=== PATIENT | female | born 1945 | race Caucasian/White ===

== ENCOUNTER 2017-01-27 05:50 | Inpatient (IN) | payer MEDICARE, OTHER ==
[2017-01-27] MEDS ORDERED: Ondansetron 4 MG Tab.DIS PO PRN ×2 (06:39→12:30)
[2017-01-27] MEDS ORDERED: Alum Hydrox/Mag Hydrox/Simeth 15 ML, Lidocaine 2% 15 ML PO ONE ×2 (06:40)
--- NOTE | 2017-01-27 06:44 | EDM.PDOC ---
<OfficerRemy - Last Filed: 01/27/17 06:45> ED HPI GENERAL MEDICAL PROBLEM - General Chief Complaint: Gastrointestinal Problem Stated Complaint: WEAKNESS Time Seen by Provider: 01/27/17 06:31 Source of Information: Reports: Patient, Family, RN Notes Reviewed History Limitations: Reports: No Limitations - History of Present Illness INITIAL COMMENTS - FREE TEXT/NARRATIVE: 71-year-old female presents emergency department day complaint of epigastric pain, she states she's had this pain for the last 4 days it seems to be about the same as constant nature burning, she does feel it burning up into her test she has seen her primary care who provided her nausea and treated her for urinary tract infection she denies any shortness of breath or diaphoresis does have a family history with mother of coronary artery disease and stenting at age 68 Epigastric Pain Score (Numeric/FACES): 8 - Related Data Allergies Allergy/AdvReac Type Severity Reaction Status Date / Time benzocaine Allergy Itching Verified 07/16/15 16:15 tramadol Allergy Hives Verified 07/16/15 16:14 Home Meds: Home Meds Betamethasone Dipropionate [Diprolene AF 0.05% Crm] 50 gm TP BID 07/16/15 [ History] Doxepin HCl [Doxepin] 10 mg PO DAILY 07/16/15 [History] Fexofenadine HCl 180 mg PO DAILY 07/16/15 [History] Gabapentin [Gabapentin] 300 mg PO DAILY 07/16/15 [History] Hydrocodone/Acetaminophen [Hydrocodon-Acetaminophen 5-325] 1 tab PO Q6HR PRN [History] Levothyroxine Sodium 112 mcg PO DAILY 07/16/15 [History] Montelukast Sodium 10 mg PO DAILY 07/16/15 [History] metroNIDAZOLE [metroNIDAZOLE 0.75% Gel] 45 gm TOP BID 07/16/15 [History] Omeprazole 20 mg PO DAILY 01/27/17 [History] Promethazine [Phenergan] 25 mg PO Q4H PRN 01/27/17 [History] Sulfamethoxazole/Trimethoprim [Sulfamethoxazole-Tmp Ds Tablet] 1 tab PO BID [History] Past Medical History HEENT History: Reports: Impaired Vision Gastrointestinal History: Reports: GERD Genitourinary History: Reports: UTI, Recurrent [employer] History: Reports: Musculoskeletal History: Reports: Osteoarthritis Other Musculoskeletal History: multiple surgeries to right elbow. Right ulnar nerve transposition. Bunion removal to left foot. Neurological History: Reports: Other (See Below) Other Neuro History: "Nerve pain to right arm". Psychiatric History: Reports: Anxiety, Depression Endocrine/Metabolic History: Reports: Hypothyroidism Dermatologic History: Reports: Other (See Below) Other Dermatologic History: DERMATITIS - Infectious Disease History Infectious Disease History: Reports: Chicken Pox, Measles - Past Surgical History HEENT Surgical History: Reports: Tonsillectomy GI Surgical History: Reports: Appendectomy, Colonoscopy Musculoskeletal Surgical History: Reports: Arthroscopic Knee, Other (See Below) Other Musculoskeletal Surgeries/Procedures:: ELBOW ULNAR NERVE REPAIR Social & Family History - Family History Cardiac: Reports: CAD (mother) Oncologic: Reports: Breast, Lung - Tobacco Use Smoking Status *Q: Former Smoker - Caffeine Use Caffeine Use: Reports: Coffee - Recreational Drug Use Recreational Drug Use: No ED ROS GENERAL - Review of Systems Review Of Systems: See Below Constitutional: Reports: Chills HEENT: Reports: No Symptoms Respiratory: Reports: No Symptoms Cardiovascular: Reports: No Symptoms GI/Abdominal: Reports: Abdominal Pain (Epigastric region), Nausea. Denies: Vomiting : Reports: No Symptoms Musculoskeletal: Reports: No Symptoms Skin: Reports: No Symptoms Neurological: Reports: No Symptoms ED EXAM, GI/ABD - Physical Exam Exam: See Below Text/Narrative:: General: Female in mild discomfort secondary to pain, alert and oriented x3 HEENT: head is atraumatic normocephalic, eyes pupils equal round reactive to light, sclera clear no conjunctivitis appreciated. Ears tympanic membranes clear and szymanski landmarks and light reflex are present bilaterally canals are clear. Nose no septal deviation, nares are clear, no blood present. Mouth mucosa is moist and pink no erythema or exudate noted in soft palate, tongue is midline uvula is midline, dentition is intact. Neck: Supple no thyromegaly no tracheal deviation. Nodes: Cervical nodes subclavicular nodes nontender no palpable lymphadenopathy noted. Lungs: clear to auscultation bilaterally with symmetrical respirations, no adventitious noise appreciated. CV: Regular rate and rhythm S1 and S2 appreciated no murmurs rubs or gallops noted. Abdomen: Soft, tender epigastric region, no palpable masses or organomegaly appreciated, no distention no guarding bowel sounds are present, . Neuro: Cranial nerves II through XII grossly intact Skin: Warm and dry, intact Extremities: No lower extremity edema appreciated,. Course - Vital Signs Last Recorded V/S: Last Vital Signs Temp 35.7 C 01/27/17 05:59 Pulse 70 01/27/17 08:02 Resp 16 01/27/17 06:52 BP 131/74 01/27/17 08:02 Pulse Ox 98 01/27/17 08:02 - Orders/Labs/Meds Orders: Active Orders 24 hr Category Date Time Status Cardiac Monitoring [RC] .As Directed Care 01/27/17 06:39 Active EKG Documentation Completion [RC] ASDIRECTED Care 01/27/17 06:40 Active Abdomen Pelvis wo Cont [CT] Stat Exams 01/27/17 08:48 Taken Chest 2V [CR] Urgent Exams 01/27/17 06:44 Taken Ondansetron [Zofran ODT] Med 01/27/17 06:39 Active 4 mg PO ONETIME PRN Sodium Chloride 0.9% [Normal Saline] 1,000 ml Med 01/27/17 08:00 Active IV ASDIRECTED ED Antiemetic Medication Reflex [OM.PC] Stat Oth 01/27/17 06:39 Ordered ED GI Medications Reflex [OM.PC] Stat Oth 01/27/17 06:39 Ordered EKG 12 Lead [EK] Stat Ther 01/27/17 06:39 Ordered Medication Orders Sodium Chloride (Normal Saline) 1,000 mls @ 500 mls/hr IV ASDIRECTED [facility] Last Admin: 01/27/17 08:05 Dose: 500 mls/hr Ondansetron HCl (Zofran Odt) 4 mg PO ONETIME PRN PRN Reason: Nausea/Vomiting Last Admin: 01/27/17 06:50 Dose: 4 mg Labs: Laboratory Tests 01/27/17 01/27/17 01/27/17 Range/Units 06:53 06:53 08:05 WBC 7.1 (4.5-11.0) K/uL RBC 4.51 (3.30-5.50) M/uL Hgb 13.7 (12.0-15.0) g/dL Hct 39.6 (36.0-48.0) % MCV 88 (80-98) fL MCH 30 (27-31) pg MCHC 35 (32-36) % Plt Count 349 (150-400) K/uL Neut % (Auto) 52 (36-66) % Lymph % (Auto) 27 (24-44) % [place] % (Auto) 12 H (2-6) % Eos % (Auto) 8 H (2-4) % Baso % (Auto) 1 (0-1) % Sodium 123 L (140-148) mmol/L Potassium 6.2 H* (3.6-5.2) mmol/L Chloride 92 L (100-108) mmol/L Carbon Dioxide 26 (21-32) mmol/L Anion Gap 11.2 (5.0-14.0) mmol/L BUN 21 H (7-18) mg/dL Creatinine 1.8 H (0.6-1.0) mg/dL Est Cr Clr Drug Dosing 29.76 mL/min Estimated GFR (MDRD) 28 L (>60) Glucose 89 (74-106) mg/dL Calcium 9.6 (8.5-10.1) mg/dL Total Bilirubin 0.5 (0.2-1.0) mg/dL AST 24 (15-37) U/L ALT 25 (12-78) U/L Alkaline Phosphatase 91 (46-116) U/L CK-MB (CK-2) 1.7 (0-3.6) mg/mL Troponin I < 0.017 (0.000-0.056) ng/mL Total Protein 8.6 H (6.4-8.2) g/dL Albumin 4.4 (3.4-5.0) g/dL Globulin 4.2 H (2.3-3.5) g/dL Albumin/Globulin Ratio 1.1 L (1.2-2.2) Amylase (25-115) U/L Lipase (73-393) U/L Urine Color Yellow Urine Appearance Clear Urine pH 6.0 (4.5-8.0) Ur Specific [place] 1.010 (1.008-1.030) Urine Protein Negative (NEGATIVE) mg/dL Urine Glucose (UA) Normal (NEGATIVE) mg/dL Urine Ketones Negative (NEGATIVE) mg/dL Urine Occult Blood Negative (NEGATIVE) Urine Nitrite Negative (NEGATIVE) Urine Bilirubin Negative (NEGATIVE) Urine Urobilinogen Normal (NORMAL) mg/dL Ur Leukocyte Esterase Negative (NEGATIVE) Urine RBC 0-5 (0-5) Urine WBC 0-5 (0-5) Ur Epithelial Cells Not seen Amorphous Sediment Not seen Urine Bacteria Not seen Urine Mucus Not seen 01/27/17 Range/Units 08:48 WBC (4.5-11.0) K/uL RBC (3.30-5.50) M/uL Hgb (12.0-15.0) g/dL Hct (36.0-48.0) % MCV (80-98) fL MCH (27-31) pg MCHC (32-36) % Plt Count (150-400) K/uL Neut % (Auto) (36-66) % Lymph % (Auto) (24-44) % [place] % (Auto) (2-6) % Eos % (Auto) (2-4) % Baso % (Auto) (0-1) % Sodium (140-148) mmol/L Potassium (3.6-5.2) mmol/L Chloride (100-108) mmol/L Carbon Dioxide (21-32) mmol/L Anion Gap (5.0-14.0) mmol/L BUN (7-18) mg/dL Creatinine (0.6-1.0) mg/dL Est Cr Clr Drug Dosing mL/min Estimated GFR (MDRD) (>60) Glucose (74-106) mg/dL Calcium (8.5-10.1) mg/dL Total Bilirubin (0.2-1.0) mg/dL AST (15-37) U/L ALT (12-78) U/L Alkaline Phosphatase (46-116) U/L CK-MB (CK-2) (0-3.6) mg/mL Troponin I (0.000-0.056) ng/mL Total Protein (6.4-8.2) g/dL Albumin (3.4-5.0) g/dL Globulin (2.3-3.5) g/dL Albumin/Globulin Ratio (1.2-2.2) Amylase 69 (25-115) U/L Lipase 297 (73-393) U/L Urine Color Urine Appearance Urine pH (4.5-8.0) Ur Specific [place] (1.008-1.030) Urine Protein (NEGATIVE) mg/dL Urine Glucose (UA) (NEGATIVE) mg/dL Urine Ketones (NEGATIVE) mg/dL Urine Occult Blood (NEGATIVE) Urine Nitrite (NEGATIVE) Urine Bilirubin (NEGATIVE) Urine Urobilinogen (NORMAL) mg/dL Ur Leukocyte Esterase (NEGATIVE) Urine RBC (0-5) Urine WBC (0-5) Ur Epithelial Cells Amorphous Sediment Urine Bacteria Urine Mucus Meds: Medications Generic Name Dose Route Start Last Admin Trade Name Freq PRN Reason Stop Dose Admin Sodium Chloride 1,000 mls @ 500 mls/hr 01/27/17 08:00 01/27/17 08:05 Normal Saline IV 500 mls/hr ASDIRECTED DENISE Administration Ondansetron HCl 4 mg 01/27/17 06:39 01/27/17 06:50 Zofran Odt PO 4 mg ONETIME PRN Administration Nausea/Vomiting Discontinued Medications Generic Name Dose Route Start Last Admin Trade Name Freq PRN Reason Stop Dose Admin Al Hydroxide/Mg Hydroxide 15 0 ml 01/27/17 06:40 01/27/17 06:48 ml/ Lidocaine HCl 15 ml PO 01/27/17 06:41 30 ml ONETIME ONE Administration Departure - Departure Disposition: Admitted As Inpatient 68 Clinical Impression: Hyperkalemia, Renal insufficiency, Dehydration, Abdominal pain - Discharge Information Forms: ED Department Discharge Care Plan Goals: admit to the hosp - My Orders Last 24 Hours: My Active Orders 01/27/17 08:00 Sodium Chloride 0.9% [Normal Saline] 1,000 ml IV ASDIRECTED 01/27/17 08:48 Abdomen Pelvis wo Cont [CT] Stat - Assessment/Plan Last 24 Hours: My Active Orders 01/27/17 08:00 Sodium Chloride 0.9% [Normal Saline] 1,000 ml IV ASDIRECTED 01/27/17 08:48 Abdomen Pelvis wo Cont [CT] Stat <Jonna Andrea - Last Filed: 01/27/17 09:56> Course - Re-Assessments/Exams Free Text/Narrative Re-Assessment/Exam: 01/27/17 08:12 pt has normal cardiac enzymes and her ekg looked ok. The k was 6.2 and her bun and creatnine is marked elfated her gfr is low. She has a k of 6.2. 01/27/17 09:53 U Will plan to admit for hydration and workup of the abdomanal pain.u s of Gb was neg. Her cat scan without contrast did not reveal sig pathology. Departure - Departure Time of Disposition: 09:55 Condition: Fair
[2017-01-27] MEDS ORDERED: Sodium Chloride 0.9% 1,000 ML IV SCH ×2 (08:00→10:00)
--- NOTE | 2017-01-27 09:46 | US ---
Ultrasound right upper quadrant. Findings: Liver within normal limits. Fold within the gallbladder. Positive sonographic Escamilla sign. No stones. No wall thickening. Common bile duct within normal limits. Pancreas were visualized is u nremarkable. IVC is patent. No ascites fluid. Right kidney demonstrates no hydronephrosis. Impression: 1. Positive sonographic Escamilla sign. No stones or wall thickening.
[2017-01-27] MEDS ORDERED: Pantoprazole 40 MG Vial IVPUSH ONE (09:58)
--- NOTE | 2017-01-27 10:01 | CT ---
CT abdomen and pelvis. Total DLP 830 Findings: Lung bases are clear.This may indicate 14 mm hypodensity within the right lobe of the live r. It is indeterminate. Tiny hypodensity within the right lobe image #28 is too small to characteriz e. Gallbladder demonstrates no wall thickening. Pancreas within normal limits. Spleen within normal li mits. No hydronephrosis within either kidney. No obstructing stone. No dilated loops of small bowel. Sigmoid diverticuli without evidence for diverticulitis. The appendix is nonvisualized. No left adn exal mass. Difficult to exclude a cyst up to 12 mm the right ovary. Mildly atherosclerotic nonaneury smal aorta. Bladder osullivan not thickened. Impression: 1. No acute intra-abdominal or pelvic process by CT. 2. Hypodensity within the liver is indeterminate. Would first start with a targeted ultrasound is ca nnot be visualized consider MRI follow-up. Findings discussed with Dr. Andrea.
--- NOTE | 2017-01-27 11:11 | PCM.HP ---
H&P History of Present Illness - General Date of Service: 01/27/17 Admit Problem/Dx: Admission Diagnosis/Problem Admission Diagnosis/Problem Acute kidney injury Source of Information: Patient, Provider History Limitations: Reports: No Limitations - History of Present Illness Initial Comments - Free Text/Narative: Eileen presents to the emergency room today with points of fatigue and epigastric abdominal pain. She reports fatigue that dates back about one half weeks. She found herself becoming very tired doing activities that normally she is able to complete without difficulty. No other specific symptoms at the onset of fatigue. She was seen in the clinic last week and found to have evidence for a urinary tract infection and was started on Bactrim at that time. Since she started on the Bactrim she has developed moderately severe heartburn symptoms as well as burning epigastric pain. Pain is moderate to moderately severe. Seems to be worse with food. Hasn't found anything that makes it better as of yet. Mild relief with a GI cocktail earlier in her emergency room stay. The pain does not radiate. It is not worse with activity. She has not had any fevers. No cough or shortness of breath. No reports of chest pain. No dysuria or urinary frequency at this time. Workup in the emergency room revealed evidence for acute kidney injury as well as mild hyperkalemia. She also has a low sodium level. She will be admitted for further management and additional workup regarding abdominal pain and kidney issues. Epigastric Pain Score (Numeric/FACES): 4 - Related Data Allergies/Adverse Reactions: Allergies Allergy/AdvReac Type Severity Reaction Status Date / Time benzocaine Allergy Itching Verified 07/16/15 16:15 tramadol Allergy Hives Verified 07/16/15 16:14 Home Medications: Home Meds Betamethasone Dipropionate [Diprolene AF 0.05% Crm] 50 gm TP BID 07/16/15 [ History] Doxepin HCl [Doxepin] 10 mg PO DAILY 07/16/15 [History] Fexofenadine HCl 180 mg PO DAILY 07/16/15 [History] Gabapentin [Gabapentin] 300 mg PO DAILY 07/16/15 [History] Hydrocodone/Acetaminophen [Hydrocodon-Acetaminophen 5-325] 1 tab PO Q6HR PRN [History] Levothyroxine Sodium 112 mcg PO DAILY 07/16/15 [History] Montelukast Sodium 10 mg PO DAILY 07/16/15 [History] metroNIDAZOLE [metroNIDAZOLE 0.75% Gel] 45 gm TOP BID 07/16/15 [History] Omeprazole 20 mg PO DAILY 01/27/17 [History] Promethazine [Phenergan] 25 mg PO Q4H PRN 01/27/17 [History] Sulfamethoxazole/Trimethoprim [Sulfamethoxazole-Tmp Ds Tablet] 1 tab PO BID [History] Past Medical History HEENT History: Reports: Impaired Vision Gastrointestinal History: Reports: GERD Genitourinary History: Reports: UTI, Recurrent [employer] History: Reports: Musculoskeletal History: Reports: Osteoarthritis Other Musculoskeletal History: multiple surgeries to right elbow. Right ulnar nerve transposition. Bunion removal to left foot. Neurological History: Reports: Other (See Below) Other Neuro History: "Nerve pain to right arm". Psychiatric History: Reports: Anxiety, Depression Endocrine/Metabolic History: Reports: Hypothyroidism Dermatologic History: Reports: Other (See Below) Other Dermatologic History: DERMATITIS - Infectious Disease History Infectious Disease History: Reports: Chicken Pox, Measles - Past Surgical History HEENT Surgical History: Reports: Tonsillectomy GI Surgical History: Reports: Appendectomy, Colonoscopy Musculoskeletal Surgical History: Reports: Arthroscopic Knee, Other (See Below) Other Musculoskeletal Surgeries/Procedures:: ELBOW ULNAR NERVE REPAIR Social & Family History - Family History Cardiac: Reports: CAD (mother) Oncologic: Reports: Breast, Lung - Tobacco Use Smoking Status *Q: Former Smoker - Caffeine Use Caffeine Use: Reports: Coffee - Alcohol Use Alcohol Use History: No - Recreational Drug Use Recreational Drug Use: No H&P Review of Systems - Review of Systems: Review Of Systems: See Below Free Text/Narrative: A complete 12 point review of systems was obtained. Pertinent positives and negatives are noted in the history of present illness. All other systems were reviewed and were negative except as noted. Exam - Exam Exam: See Below - Vital Signs Vital Signs: Last Vital Signs Temp 35.7 C 01/27/17 11:01 Pulse 70 01/27/17 11:01 Resp 16 01/27/17 06:52 BP 106/72 01/27/17 11:01 Pulse Ox 99 01/27/17 08:30 Weight: 68.9 kg - Exam General: Alert, Oriented, Cooperative. No: Mild Distress HEENT: Conjunctiva Clear, Mucosa Moist & [place]. No: Scleral Icterus Neck: Supple, Trachea Midline. No: Lymphadenopathy Lungs: Clear to Auscultation, Normal Respiratory Effort Cardiovascular: Regular Rate, Regular Rhythm. No: Systolic Murmur GI/Abdominal Exam: Normal Bowel Sounds, Soft, No Distention, Tender (mild epigastric tenderness) Back Exam: Normal Inspection, Full Range of Motion Extremities: Normal Inspection, Normal Range of Motion, No Pedal Edema Peripheral Pulses: 2+: Dorsalis Pedis (L), Dorsalis Pedis (R) Skin: Warm, Dry, Rash (mild erythema over anterior neck and upper chest ) Neuro Extensive - Mental Status: Alert, Oriented x3, Nl Response to Commands Neuro Extensive - Motor, Sensory, Reflexes: CN II-XII Intact. No: Dysarthria, Abnormal Motor, Tremor Psychiatric: Alert, Normal Affect - Patient Data Lab Results Last 24 hrs: Laboratory Results - last 24 hr 01/27/17 01/27/17 01/27/17 Range/Units 06:53 06:53 08:05 WBC 7.1 (4.5-11.0) K/uL RBC 4.51 (3.30-5.50) M/uL Hgb 13.7 (12.0-15.0) g/dL Hct 39.6 (36.0-48.0) % MCV 88 (80-98) fL MCH 30 (27-31) pg MCHC 35 (32-36) % Plt Count 349 (150-400) K/uL Neut % (Auto) 52 (36-66) % Lymph % (Auto) 27 (24-44) % [place] % (Auto) 12 H (2-6) % Eos % (Auto) 8 H (2-4) % Baso % (Auto) 1 (0-1) % Sodium 123 L (140-148) mmol/L Potassium 6.2 H* (3.6-5.2) mmol/L Chloride 92 L (100-108) mmol/L Carbon Dioxide 26 (21-32) mmol/L Anion Gap 11.2 (5.0-14.0) mmol/L BUN 21 H (7-18) mg/dL Creatinine 1.8 H (0.6-1.0) mg/dL Est Cr Clr Drug Dosing 29.76 mL/min Estimated GFR (MDRD) 28 L (>60) Glucose 89 (74-106) mg/dL Calcium 9.6 (8.5-10.1) mg/dL Total Bilirubin 0.5 (0.2-1.0) mg/dL AST 24 (15-37) U/L ALT 25 (12-78) U/L Alkaline Phosphatase 91 (46-116) U/L CK-MB (CK-2) 1.7 (0-3.6) mg/mL Troponin I < 0.017 (0.000-0.056) ng/mL C-Reactive Protein (0.0-0.3) mg/dL Total Protein 8.6 H (6.4-8.2) g/dL Albumin 4.4 (3.4-5.0) g/dL Globulin 4.2 H (2.3-3.5) g/dL Albumin/Globulin Ratio 1.1 L (1.2-2.2) Amylase (25-115) U/L Lipase (73-393) U/L Urine Color Yellow Urine Appearance Clear Urine pH 6.0 (4.5-8.0) Ur Specific [place] 1.010 (1.008-1.030) Urine Protein Negative (NEGATIVE) mg/dL Urine Glucose (UA) Normal (NEGATIVE) mg/dL Urine Ketones Negative (NEGATIVE) mg/dL Urine Occult Blood Negative (NEGATIVE) Urine Nitrite Negative (NEGATIVE) Urine Bilirubin Negative (NEGATIVE) Urine Urobilinogen Normal (NORMAL) mg/dL Ur Leukocyte Esterase Negative (NEGATIVE) Urine RBC 0-5 (0-5) Urine WBC 0-5 (0-5) Ur Epithelial Cells Not seen Amorphous Sediment Not seen Urine Bacteria Not seen Urine Mucus Not seen 01/27/17 01/27/17 Range/Units 08:48 10:58 WBC (4.5-11.0) K/uL RBC (3.30-5.50) M/uL Hgb (12.0-15.0) g/dL Hct (36.0-48.0) % MCV (80-98) fL MCH (27-31) pg MCHC (32-36) % Plt Count (150-400) K/uL Neut % (Auto) (36-66) % Lymph % (Auto) (24-44) % [place] % (Auto) (2-6) % Eos % (Auto) (2-4) % Baso % (Auto) (0-1) % Sodium (140-148) mmol/L Potassium (3.6-5.2) mmol/L Chloride (100-108) mmol/L Carbon Dioxide (21-32) mmol/L Anion Gap (5.0-14.0) mmol/L BUN (7-18) mg/dL Creatinine (0.6-1.0) mg/dL Est Cr Clr Drug Dosing mL/min Estimated GFR (MDRD) (>60) Glucose (74-106) mg/dL Calcium (8.5-10.1) mg/dL Total Bilirubin (0.2-1.0) mg/dL AST (15-37) U/L ALT (12-78) U/L Alkaline Phosphatase (46-116) U/L CK-MB (CK-2) (0-3.6) mg/mL Troponin I (0.000-0.056) ng/mL C-Reactive Protein 0.15 (0.0-0.3) mg/dL Total Protein (6.4-8.2) g/dL Albumin (3.4-5.0) g/dL Globulin (2.3-3.5) g/dL Albumin/Globulin Ratio (1.2-2.2) Amylase 69 (25-115) U/L Lipase 297 (73-393) U/L Urine Color Urine Appearance Urine pH (4.5-8.0) Ur Specific [place] (1.008-1.030) Urine Protein (NEGATIVE) mg/dL Urine Glucose (UA) (NEGATIVE) mg/dL Urine Ketones (NEGATIVE) mg/dL Urine Occult Blood (NEGATIVE) Urine Nitrite (NEGATIVE) Urine Bilirubin (NEGATIVE) Urine Urobilinogen (NORMAL) mg/dL Ur Leukocyte Esterase (NEGATIVE) Urine RBC (0-5) Urine WBC (0-5) Ur Epithelial Cells Amorphous Sediment Urine Bacteria Urine Mucus Result Diagrams: 01/27/17 06:53 01/27/17 06:53 Imaging Impressions Last 24 hrs: RUQ US - normal appearing gallbladder, no stones or wall thickening CT abd/pelvis w/o contrast - images personally reviewed - no evidence for acute intraabdominal pathology. GB appears normal. no mass or lymphadenopathy EKG INTERPRETATION EKG Date: 01/27/17 Rhythm: NSR Rate (Beats/Min): 65 [place]: Normal P-Wave: Present QRS: Normal ST-T: Normal QT: Normal *Q Meaningful Use (ADM) - VTE *Q VTE Criteria *Q: - VTE Risk Assess *Q Each Risk Factor Represents 1 Point: None Total Score 1 Point Risk Factors: 0 Each Risk Factor Represents 2 Points: Age 60 - 74 Years, Surgery: Major, Arthroscopic and/or Laparoscopic, Greater than 60 Min Total Score 2 Point Risk Factors: 4 Each Risk Factor Represents 3 Points: None Total Score 3 Point Risk Factors: 0 Each Risk Factor Represents 5 Points: None Total Score 5 Point Risk Factors: 0 Venous Thromboembolism Risk Factor Score *Q: 4 - Stroke *Q Stroke Criteria *Q: - AMI *Q AMI Criteria *Q: - Problem List (1) Acute kidney injury SNOMED Code(s): 11330037 ICD Code: N17.9 - ACUTE KIDNEY FAILURE, UNSPECIFIED Status: Acute Current Visit: Yes (2) Hyperkalemia SNOMED Code(s): 52430392 ICD Code: E87.5 - HYPERKALEMIA Status: Acute Current Visit: Yes (3) Epigastric abdominal pain SNOMED Code(s): 60755028 ICD Code: R10.13 - EPIGASTRIC PAIN Status: Acute Current Visit: Yes Problem List Initiated/Reviewed/Updated: Yes Orders Last 24hrs: Active Orders 24 hr Category Date Time Status Patient Status Manage Transfer [TRANSFER] Routine ADT 01/27/17 10:59 Ordered Cardiac Monitoring [RC] .As Directed Care 01/27/17 06:39 Active EKG Documentation Completion [RC] ASDIRECTED Care 01/27/17 06:40 Active Chest 2V [CR] Urgent Exams 01/27/17 06:44 Taken CRP [C-REACTIVE PROTEIN] [CHEM] Routine Lab 01/27/17 10:58 Ordered ESR [SEDIMENTATION RATE MANUAL] [HEME] Routine Lab 01/27/17 10:58 Ordered Ondansetron [Zofran ODT] Med 01/27/17 06:39 Active 4 mg PO ONETIME PRN Sodium Chloride 0.9% [Normal Saline] 1,000 ml Med 01/27/17 08:00 Active IV ASDIRECTED Sodium Chloride 0.9% [Normal Saline] 1,000 ml Med 01/27/17 10:00 Active IV ASDIRECTED ED Antiemetic Medication Reflex [OM.PC] Stat Oth 01/27/17 06:39 Ordered ED GI Medications Reflex [OM.PC] Stat Oth 01/27/17 06:39 Ordered Resuscitation Status Routine Resus Stat 01/27/17 11:02 Ordered EKG 12 Lead [EK] Stat Ther 01/27/17 06:39 Ordered Medication Orders Sodium Chloride (Normal Saline) 1,000 mls @ 500 mls/hr IV ASDIRECTED DENISE Last Admin: 01/27/17 08:05 Dose: 500 mls/hr Sodium Chloride (Normal Saline) 1,000 mls @ 500 mls/hr IV ASDIRECTED DENISE Last Admin: 01/27/17 10:02 Dose: 500 mls/hr Ondansetron HCl (Zofran Odt) 4 mg PO ONETIME PRN PRN Reason: Nausea/Vomiting Last Admin: 01/27/17 06:50 Dose: 4 mg Assessment/Plan Comment:: Assessment and plan - Epigastric abdominal pain - etiology not entirely clear but is associated with increasing heartburn symptoms. No obvious gallbladder abnormalities based on ultrasound or CT scan. Hepatic panel testing as well as amylase and lipase are normal. Gastritis or ulcer disease could be considered. Medication side effect could be considered as well. -Discontinue PPI and Bactrim -Start H2 jazlyn -EGD for further anatomic evaluation -Tums as needed Acute kidney injury - suspect interstitial nephritis with associated hyponatremia and hyperkalemia. Bactrim certainly could be a culprit and the proton pump inhibitor could also be considered. -Stop above medications -IV fluids -Labs in the morning Hyperkalemia - Mild elevation at this time, no EKG changes. Vital signs are stable. -Fluids as above -labs in the morning Hypothyroidism - medication dosage has recently changed. No strong symptoms to support hyper or hypothyroid state at this time. -continue supplement Maintenance issues - - DVT prophylaxis - mechanical - GI prophylaxis - H2 jazlyn - Nutrition - nothing by mouth until after surgery - Osorio catheter - not indicated CODE STATUS - full code Admission justification - This patient will be admitted for inpatient services and is medically appropriate meeting medical necessity for inpatient admission as outlined in my documentation. I reasonably expect the patient will require inpatient services that span a period time over 2 midnights. I reasonably expect this patient to be discharged or transferred within 96 hours [facility] Disposition - anticipate discharge to home after the hospital stay Primary care physician - Dr. Dilip Jung M.D.
[2017-01-27] MEDS ORDERED: Propofol 200 MG/20 ML SDV ONE (11:27)
[2017-01-27] MEDS ORDERED: Ondansetron 4 MG/2 ML SDV ONE (11:27)
--- NOTE | 2017-01-27 11:44 | CR ---
Emphysematous change. Kyphosis. No focal consolidation. Pulmonary vasculature within normal limits.
[2017-01-27] MEDS ORDERED: Calcium Carbonate 500 MG Tab.Chew PO PRN (12:30)
[2017-01-27] MEDS ORDERED: Acetaminophen 325 MG Tab PO PRN (12:30)
[2017-01-27] MEDS ORDERED: Acetaminophen/HYDROcodone 325-5 MG Tab PO PRN (12:30)
[2017-01-27] MEDS ORDERED: Ondansetron 4 MG/2 ML SDV IV PRN (12:30)
--- NOTE | 2017-01-27 14:38 | OR ---
DATE OF PROCEDURE: 01/27/2017 PREOPERATIVE DIAGNOSIS: Epigastric pain. POSTOPERATIVE DIAGNOSIS: Gastritis, bile in the stomach. PROCEDURE: Esophagogastroduodenoscopy with antral biopsies for CLOtest and for pathology to look for Helicobacter pylori. ANESTHESIA: IV anesthesia with monitored anesthesia care. INDICATION: This 71-year-old white female came into the emergency room today complaining of severe epigastric pain. CAT scan and ultrasound were unremarkable. Request was made for upper endoscopy. I counseled her for this including risks and alternatives , and she gave her informed consent to proceed. PROCEDURE IN DETAIL: The patient was placed in the left lateral decubitus position. IV anesthesia was administered by the Anesthesia Service. Time-out was held. The flexible video Olympus upper endoscope was passed through her mouth, down her esophagus, and into her stomach. The scope was easily passed through the pylorus into the duodenal reaching its third portion. The scope was then slowly withdrawn, examining the mucosa throughout. The duodenal mucosa appeared unremarkable. The scope was brought up through the pylorus. There was bile in the stomach. There was also erythema in the stomach consistent with gastritis. We obtained antral biopsies for CLOtest and for pathology to look for Helicobacter pylori. The scope was retroflexed, and the proximal stomach showed some mild irritation. The scope was straightened and brought up through the GE junction which was unremarkable and then up through the unremarkable appearing esophagus and was removed. She tolerated the procedure well. Chavez Lucero MD /[id number] MTDD
[2017-01-27] MEDS: Sodium Chloride 0.9% 1,000 ML IV SCH (15:55)
[2017-01-27] MEDS: Betamethasone Dipropionate 0.05% Crm 15 GM Tube TOP SCH (20:13)
[2017-01-27] MEDS ORDERED: Famotidine 20 MG Tab PO SCH (21:00)
[2017-01-28] MEDS: Sodium Chloride 0.9% 1,000 ML IV SCH ×2 (00:36→08:42)
[2017-01-28 07:04] VITALS: BP 113/68
[2017-01-28] MEDS ORDERED: Levothyroxine 112 MCG Tab PO SCH (07:30)
[2017-01-28] MEDS ORDERED: Famotidine 20 MG Tab PO SCH (09:00)
[2017-01-28] MEDS ORDERED: Loratadine 10 MG Tab PO SCH (09:00)
[2017-01-28] MEDS ORDERED: Gabapentin 300 MG Cap PO SCH ×2 (09:00→21:00)
[2017-01-28] MEDS: Betamethasone Dipropionate 0.05% Crm 15 GM Tube TOP SCH (10:10)
--- NOTE | 2017-01-28 10:26 | PCM.DCSUM1 ---
Discharge Summary - Hospital Course Brief History: 71 -year-old female with history of esophageal reflux disease who presented with weakness, fatigue and epigastric pain. She is admitted for management of acute kidney injury and hyperkalemia. - Discharge Data Discharge Date: 01/28/17 Discharge Disposition: Home, Self-Care 01 Condition: Good - Discharge Diagnosis/Problem(s) (1) Acute kidney injury SNOMED Code(s): 25759966 ICD Code: N17.9 - ACUTE KIDNEY FAILURE, UNSPECIFIED Status: Acute Problem Details: suspect interstitial nephritis (2) Hyperkalemia SNOMED Code(s): 98226045 ICD Code: E87.5 - HYPERKALEMIA Status: Acute (3) Epigastric abdominal pain SNOMED Code(s): 67437833 ICD Code: R10.13 - EPIGASTRIC PAIN Status: Acute - Patient Summary/Data Consults: Consultations 01/27/17 12:30 Consult to Physician [CONS] Routine Consulting Provider: Chavez Lucero Courtesy Call Completed to Consulting Physician: Yes Reason for Consult: epigastric pain, consider EGD Person Notified: BDB Date Notified: 01/27/17 Hospital Course: Eileen presented to the emergency room with greater than 1 week of fatigue as well as morphine acute epigastric abdominal pain with nausea type picture. Workup in the emergency room revealed mild hyponatremia, hyperkalemia and acute kidney injury. There was no strong evidence for infection at the time of presentation. She was admitted to the hospital for hydration and treatment of her hyperkalemia. At the time of admission interstitial nephritis was suspected and the omeprazole was thought to be the most likely culprit given the duration of symptoms. The sulfa antibiotic that she was prescribed for a urinary tract infection was considered as a potential culprit but she did not feel well even prior to starting this medication. She received IV fluids overnight and the morning after admission her kidney function has improved significantly but not quite returned to normal. Her potassium level has improved and is at the upper limits of normal. Her heartburn symptoms and epigastric pain that were present at the time of admission have essentially resolved. She has tolerated her full liquids without difficulty. She did have an EGD the evening after admission which showed only very mild gastritis. CLOtest was negative. I believe she is safe for outpatient management at this time. Kidney function and potassium level have nearly normalized and clinically she feels dramatically improved. I suspect the culprit for her difficulties with the proton pump inhibitor with possible contribution from the Bactrim. I have switched her over to an H2 jazlyn for her heartburn symptom management. She will be following up as needed if symptoms do not continue to improve. Eileen was admitted to inpatient status with the idea that it would take more than 2 midnights to manage her acute kidney injury as well as the hyperkalemia. Both of these conditions improved much faster than expected at the time of admission and she is ready for discharge with a safe outpatient management plan after only one midnight. This was a very unexpected and rapid improvement. - Patient Instructions Diet: Regular Diet as Tolerated Diet, Other: soft and bland foods for the next week or so Activity: As Tolerated Driving: May Drive Today Showering/Bathing: May Shower Notify Provider of: Fever, Increased Pain, Nausea and/or Vomiting Other/Special Instructions: 1. You were in the hospital for management of acute kidney injury and hyperkalemia thought secondary to interstitial nephritis. I believe the difficulties were caused by your acid blocking medication omeprazole. Your kidney function and potassium have improved overnight with hydration. They should return to normal now that the offending medications have been stopped. There was no evidence for ongoing infection in your bladder. 2. To help manage your heartburn symptoms I would recommend that you take either ranitidine 150 mg or famotidine 40 mg. These are both available over-the- counter. Start with once daily dosing and you may increase to twice daily if needed to adequately manage your heartburn symptoms. 3. Please seek medical attention if you develop fever greater than 101, have persistent vomiting or severe abdominal pain. - Discharge Plan Home Medications: Home Meds Betamethasone Dipropionate [Diprolene AF 0.05% Crm] 50 gm TP BID 07/16/15 [ History] Doxepin HCl [Doxepin] 10 mg PO DAILY 07/16/15 [History] Fexofenadine HCl 180 mg PO DAILY 07/16/15 [History] Gabapentin 300 mg PO DAILY 07/16/15 [History] Hydrocodone/Acetaminophen [Hydrocodon-Acetaminophen 5-325] 1 tab PO Q6HR PRN [History] Levothyroxine Sodium 112 mcg PO DAILY 07/16/15 [History] Montelukast Sodium 10 mg PO DAILY 07/16/15 [History] metroNIDAZOLE [metroNIDAZOLE 0.75% Gel] 45 gm TOP BID 07/16/15 [History] Promethazine [Phenergan] 25 mg PO Q4H PRN 01/27/17 [History] Patient Handouts: Ranitidine tablets or capsules Referrals: Bacilio Cherry MD [Primary Care Provider] - (follow-up as needed after the hospital stay if your symptoms do not continue to improve) - Discharge Summary/Plan Comment DC Time >30 min.: No (25) - Patient Data Vitals - Most Recent: Last Vital Signs Temp 37.0 C 01/28/17 07:00 Pulse 71 01/28/17 07:00 Resp 18 01/28/17 07:00 BP 113/68 01/28/17 07:00 Pulse Ox 98 01/28/17 07:00 Weight - Most Recent: 68.9 kg I&O - Last 24 hours: Intake & Output 01/27/17 01/28/17 01/28/17 22:59 06:59 14:59 Intake Total 1480 1544 360 Output Total 1200 900 200 Balance 280 644 160 Lab Results - Last 24 hrs: Laboratory Results - last 24 hr 01/28/17 01/28/17 Range/Units 05:11 05:11 WBC 5.8 (4.5-11.0) K/uL RBC 3.96 (3.30-5.50) M/uL Hgb 11.9 L (12.0-15.0) g/dL Hct 35.6 L (36.0-48.0) % MCV 90 (80-98) fL MCH 30 (27-31) pg MCHC 33 (32-36) % Plt Count 273 (150-400) K/uL Sodium 128 L (140-148) mmol/L Potassium 5.8 H (3.6-5.2) mmol/L Chloride 101 (100-108) mmol/L Carbon Dioxide 22 (21-32) mmol/L Anion Gap 10.8 (5.0-14.0) mmol/L BUN 13 (7-18) mg/dL Creatinine 1.2 H (0.6-1.0) mg/dL Est Cr Clr Drug Dosing 44.81 mL/min Estimated GFR (MDRD) 45 L (>60) Glucose 80 (74-106) mg/dL Calcium 8.8 (8.5-10.1) mg/dL Med Orders - Current: Current Medications Acetaminophen (Tylenol) 650 mg PO Q4H PRN PRN Reason: Pain (Mild 1-3)/fever Hydrocodone Bitart/Acetaminophen ([place] 325-5 Mg) 1 tab PO Q6H PRN PRN Reason: Pain Betamethasone Dipropionate (Diprolene Af 0.05% Crm) 0 gm TOP BID [facility] Last Admin: 01/28/17 10:10 Dose: Not Given Calcium Carbonate/Glycine (Tums) 1,000 mg PO Q2H PRN PRN Reason: Indigestion Famotidine (Pepcid) 20 mg PO BID [facility] Last Admin: 01/28/17 10:10 Dose: 20 mg Gabapentin (Neurontin) 300 mg PO BEDTIME [facility] Sodium Chloride (Normal Saline) 1,000 mls @ 125 mls/hr IV ASDIRECTED [facility] Last Admin: 01/28/17 08:42 Dose: 125 mls/hr Levothyroxine Sodium (Levothyroxine) 112 mcg PO DAILY@0730 [facility] Last Admin: 01/28/17 07:30 Dose: 112 mcg Loratadine (Claritin) 10 mg PO DAILY [facility] Last Admin: 01/28/17 08:42 Dose: 10 mg Ondansetron HCl (Zofran Odt) 4 mg PO Q6H PRN PRN Reason: Nausea able to take PO Ondansetron HCl (Zofran) 4 mg IV Q6H PRN PRN Reason: Nausea/Vomiting Discontinued Medications Al Hydroxide/Mg Hydroxide 15 (ml/ Lidocaine HCl 15 ml) 0 ml PO ONETIME ONE Stop: 01/27/17 06:41 Last Admin: 01/27/17 06:48 Dose: 30 ml Famotidine (Pepcid) 20 mg PO BEDTIME [facility] Last Admin: 01/27/17 20:13 Dose: 20 mg Sodium Chloride (Normal Saline) 1,000 mls @ 500 mls/hr IV ASDIRECTED [facility] Last Admin: 01/27/17 08:05 Dose: 500 mls/hr Sodium Chloride (Normal Saline) 1,000 mls @ 500 mls/hr IV ASDIRECTED [facility] Last Admin: 01/27/17 10:02 Dose: 500 mls/hr Ondansetron HCl (Zofran Odt) 4 mg PO ONETIME PRN PRN Reason: Nausea/Vomiting Last Admin: 01/27/17 06:50 Dose: 4 mg Ondansetron HCl (Zofran) Confirm Administered Dose 8 mg .ROUTE .STK-MED ONE Stop: 01/27/17 11:28 Pantoprazole Sodium (Protonix Iv) 40 mg IVPUSH ONETIME ONE Stop: 01/27/17 09:59 Last Admin: 01/27/17 10:02 Dose: 40 mg Propofol (Diprivan 20 Ml) Confirm Administered Dose 200 mg .ROUTE .STK-MED ONE Stop: 01/27/17 11:28 *Q Meaningful Use (DIS) - VTE *Q VTE Criteria *Q: - Stroke *Q Stroke Criteria *Q: - AMI *Q AMI Criteria *Q:
== END 2017-01-28 11:00 | disposition home or self-care (01) | DRG 392 ==
LOC: JP.ED 05:50 → JP.MS 10:59 → UNDOADMIN 10:59 → JP.MS 12:30 → UNDODISIN 01-28 11:00
PROVIDERS: ADMIT Internal Medicine; ATTEND Surgery
PROC: 0DB68ZX Excision of Stomach, Via Natural or Artificial Opening Endoscopic, Diagnostic (ICD-10-PCS; principal; 2017-01-27)
DX: K29.60 Other gastritis without bleeding (principal); N12 Tubulo-interstitial nephritis, not specified as acute or chronic; N17.9 Acute kidney failure, unspecified; E87.1 Hypo-osmolality and hyponatremia; T47.1X5A Adverse effect of other antacids and anti-gastric-secretion drugs, initial encounter; Y92.009 Unspecified place in unspecified non-institutional (private) residence as the place of occurrence of the external cause; E87.5 Hyperkalemia; R53.1 Weakness; R10.13 Epigastric pain; R12 Heartburn; E03.9 Hypothyroidism, unspecified; Z87.891 Personal history of nicotine dependence; K21.9 Gastro-esophageal reflux disease without esophagitis; F41.9 Anxiety disorder, unspecified; F32.9 Major depressive disorder, single episode, unspecified; M19.90 Unspecified osteoarthritis, unspecified site; Z87.440 Personal history of urinary (tract) infections; H54.7 Unspecified visual loss; Z88.8 Allergy status to other drugs, medicaments and biological substances
CPT/HCPCS: 36415; 71020 ×2; 74176 ×2; 76705 ×2; 80053; 81001; 82150; 82553; 83690; 84484; 85025; 85651; 86140; 93005; 96361; 96374; 99285; A9270 ×3; C9113; J7040 ×2; 80048; 85027; 87081; 88305; 93010; J2405; J2704

== ENCOUNTER 2017-01-30 04:55 | Emergency (ER) | payer MEDICARE, OTHER ==
[2017-01-30 05:12] VITALS: BP 128/83
[2017-01-30] MEDS ORDERED: Alum Hydrox/Mag Hydrox/Simeth 15 ML, Lidocaine 2% 15 ML PO ONE ×2 (05:24)
--- NOTE | 2017-01-30 06:11 | EDM.PDOC ---
ED HPI GENERAL MEDICAL PROBLEM - General Chief Complaint: General Stated Complaint: ILLNESS Time Seen by Provider: 01/30/17 05:15 Source of Information: Reports: Patient History Limitations: Reports: No Limitations - History of Present Illness INITIAL COMMENTS - FREE TEXT/NARRATIVE: History of present illness: [71-year-old female presenting with heartburn. She was just hospitalized for this and did have an upper endoscopy. She was noted to have gastritis and bile in her stomach. She had been switched over to [id number] Pepcid or Zantac for the treatment of her heartburn as the proton pump inhibitors I believe he she was on were causing some trouble with her kidneys. She presents somewhat anxious and worried about her heartburn in her kidneys and I think has been ruminating about her hospitalization and she was discharged. ] Review of systems: As per history of present illness and below otherwise all systems reviewed and negative. Past medical history: As per history of present illness and as reviewed below otherwise noncontributory. Surgical history: As per history of present illness and as reviewed below otherwise noncontributory. Social history: No reported history of drug or alcohol abuse. Family history: As per history of present illness and as reviewed below otherwise noncontributory. Physical exam: HEENT: Atraumatic, normocephalic, Lungs: Clear to auscultation Heart: S1S2, regular Abdomen: Soft, nondistended, nontender. Pelvis: Stable nontender. Genitourinary: Deferred. Rectal: Deferred. Extremities: Atraumatic, negative for cords or calf pain. Neurovascular unremarkable. Neuro: Awake, alert, oriented. Exam nonfocal. Diagnostics: [] Therapeutics: [GI cocktail was given and her pain went from an 8-4] Impression: [Gastric reflux] Plan: [I spent 20 minutes visiting with her about heartburn and some lifestyle modification that she can do to try to minimize this problem. She seemed to take it well and stated that "you made me feel better and gave me some ideas I could try". I also recommended that she make an appointment with her primary doctor Dr. Cherry in talk to him about her kidneys as she still worried about this.] Definitive disposition and diagnosis as appropriate pending reevaluation and review of above. epigastric Pain Score (Numeric/FACES): 8 - Related Data Allergies Allergy/AdvReac Type Severity Reaction Status Date / Time benzocaine Allergy Itching Verified 01/30/17 05:01 tramadol Allergy Hives Verified 01/30/17 05:01 Home Meds: Home Meds Betamethasone Dipropionate [Diprolene AF 0.05% Crm] 50 gm TP BID 07/16/15 [ History] Doxepin HCl [Doxepin] 10 mg PO DAILY 07/16/15 [History] Fexofenadine HCl 180 mg PO DAILY 07/16/15 [History] Gabapentin 300 mg PO DAILY 07/16/15 [History] Hydrocodone/Acetaminophen [Hydrocodon-Acetaminophen 5-325] 1 tab PO Q6HR PRN [History] Levothyroxine Sodium 112 mcg PO DAILY 07/16/15 [History] Montelukast Sodium 10 mg PO DAILY 07/16/15 [History] metroNIDAZOLE [metroNIDAZOLE 0.75% Gel] 45 gm TOP BID 07/16/15 [History] Promethazine [Phenergan] 25 mg PO Q4H PRN 01/27/17 [History] Past Medical History HEENT History: Reports: Impaired Vision Cardiovascular History: Reports: None Respiratory History: Reports: None Gastrointestinal History: Reports: GERD Genitourinary History: Reports: UTI, 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 Right ulnar nerve transposition. Bunion removal to left foot. Neurological History: Reports: Other (See Below) Other Neuro History: "Nerve pain to right arm". Psychiatric History: Reports: Anxiety, Depression Endocrine/Metabolic History: Reports: Hypothyroidism Hematologic History: Reports: None Immunologic History: Reports: None Oncologic (Cancer) History: Reports: None Dermatologic History: Reports: Other (See Below) Other Dermatologic History: DERMATITIS - Infectious Disease History Infectious Disease History: Reports: Chicken Pox, Measles, Rubella - Past Surgical History Head Surgeries/Procedures: Reports: None HEENT Surgical History: Reports: Tonsillectomy Cardiovascular Surgical History: Reports: None Respiratory Surgical History: Reports: None GI Surgical History: Reports: Appendectomy, Colonoscopy Musculoskeletal Surgical History: Reports: Arthroscopic Knee, Other (See Below) Other Musculoskeletal Surgeries/Procedures:: ELBOW ULNAR NERVE REPAIR Oncologic Surgical History: Reports: None Social & Family History - Family History Cardiac: Reports: CAD Oncologic: Reports: Breast, Lung - Tobacco Use Smoking Status *Q: Never Smoker Second Hand Smoke Exposure: No - Caffeine Use Caffeine Use: Reports: Coffee - Recreational Drug Use Recreational Drug Use: No ED ROS GENERAL - Review of Systems Review Of Systems: ROS reveals no pertinent complaints other than HPI. ED EXAM, GENERAL - Physical Exam Exam: See Below Course - Vital Signs Last Recorded V/S: Last Vital Signs Temp 35.7 C 01/30/17 05:01 Pulse 61 01/30/17 05:01 Resp 20 01/30/17 05:01 BP 128/83 01/30/17 05:01 Pulse Ox 99 01/30/17 05:01 - Orders/Labs/Meds Meds: Medications Discontinued Medications Generic Name Dose Route Start Last Admin Trade Name Freq PRN Reason Stop Dose Admin Al Hydroxide/Mg Hydroxide 15 0 ml 01/30/17 05:24 01/30/17 05:32 ml/ Lidocaine HCl 15 ml PO 01/30/17 05:25 30 ml ONETIME ONE Administration Departure - Departure Time of Disposition: 06:09 Disposition: Home, Self-Care 01 Condition: Good Clinical Impression: Reflux esophagitis - Discharge Information Forms: ED Department Discharge Additional Instructions: It was a pleasure to meet you and as we discussed I would recommend that you just follow-up with Dr. Cherry and discuss her concerns with him about her kidneys. I hope that the ideas we discussed as far as your heartburn that you can try her help for you. And once again remarry you can take your over-the- counter acid medicine twice a day instead of once a day and see if that helps to alleviate your symptoms. The medicine that Dr. Jung recommended is safe for your kidneys so that should not be a concern for you.
== END 2017-01-30 06:19 | disposition home or self-care (01) ==
LOC: JP.ED 04:55
DX: K21.0 Gastro-esophageal reflux disease with esophagitis (principal); M19.90 Unspecified osteoarthritis, unspecified site; E03.9 Hypothyroidism, unspecified; F32.9 Major depressive disorder, single episode, unspecified; F41.9 Anxiety disorder, unspecified; Z90.49 Acquired absence of other specified parts of digestive tract; Z87.440 Personal history of urinary (tract) infections; Z98.890 Other specified postprocedural states; Z79.899 Other long term (current) drug therapy; Z88.5 Allergy status to narcotic agent; Z88.4 Allergy status to anesthetic agent
CPT/HCPCS: 99283; A9270

== ENCOUNTER 2017-01-31 05:34 | Inpatient (IN) | payer MEDICARE, OTHER ==
[2017-01-31] MEDS ORDERED: Sodium Chloride 0.9% 1,000 ML IV SCH (06:30)
--- NOTE | 2017-01-31 07:30 | EDM.PDOC ---
ED HPI GENERAL MEDICAL PROBLEM - General Chief Complaint: Gastrointestinal Problem Stated Complaint: MEDICAL VIA [facility] Time Seen by Provider: 01/31/17 06:08 Source of Information: Reports: Patient History Limitations: Reports: No Limitations - History of Present Illness INITIAL COMMENTS - FREE TEXT/NARRATIVE: History of present illness: [71-year-old female presenting with generalized weakness and some nausea and vomiting. She got up to go to the bathroom and was so weak she stumbled and fell and hit her left forehead. She did not lose consciousness. Her brought her in.] Review of systems: As per history of present illness and below otherwise all systems reviewed and negative. Past medical history: As per history of present illness and as reviewed below otherwise noncontributory. Surgical history: As per history of present illness and as reviewed below otherwise noncontributory. Social history: No reported history of drug or alcohol abuse. Family history: As per history of present illness and as reviewed below otherwise noncontributory. Physical exam: General: She appears very weak and couldn't Take and quickly falls asleep but is arousable. HEENT: She has some erythema about her left eye no step-off deformities or swelling. This is from her fall. Her pupils are equal and reactive to light extraocular movements are intact. Throat is clear but mucous membranes are dry. Neck is supple Lungs: Clear to auscultation Heart: S1S2, regular Abdomen: Soft, nondistended, nontender. Pelvis: Stable nontender. Genitourinary: Deferred. Rectal: Deferred. Extremities: Atraumatic, negative for cords or calf pain. Neurovascular unremarkable. Neuro: She is very somnolent and cachectic but moving all extremities. No focal neurologic deficits Diagnostics: [Complete metabolic panel showing a sodium of 118 and her TSH is over 10.] Therapeutics: [] Impression: [Hyponatremia Hypothyroidism] Plan: [I spoke with Dr. Jung who is excepting her for admission.] Definitive disposition and diagnosis as appropriate pending reevaluation and review of above. Abdominal Pain Score (Numeric/FACES): 3 - Related Data Allergies Allergy/AdvReac Type Severity Reaction Status Date / Time benzocaine Allergy Itching Verified 01/30/17 05:01 omeprazole Allergy Nausea Verified 01/31/17 05:47 tramadol Allergy Hives Verified 08/03/17 05:01 Home Meds: Home Meds Betamethasone Dipropionate [Diprolene AF 0.05% Crm] 50 gm TP BID 07/16/15 [ History] Doxepin HCl [Doxepin] 10 mg PO BEDTIME 07/16/15 [History] Fexofenadine HCl 180 mg PO DAILY 07/16/15 [History] Gabapentin 300 mg PO DAILY 07/16/15 [History] Hydrocodone/Acetaminophen [Hydrocodon-Acetaminophen 5-325] 1 tab PO Q6HR PRN [History] Levothyroxine Sodium 112 mcg PO DAILY 07/16/15 [History] Montelukast Sodium 10 mg PO BEDTIME 07/16/15 [History] metroNIDAZOLE [metroNIDAZOLE 0.75% Gel] 45 gm TOP BID 07/16/15 [History] Ranitidine [Zantac] 150 mg PO DAILY 01/31/17 [History] Past Medical History HEENT History: Reports: Impaired Vision Cardiovascular History: Reports: None Respiratory History: Reports: None Gastrointestinal History: Reports: GERD Genitourinary History: Reports: UTI, 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 Right ulnar nerve transposition. Bunion removal to left foot. Neurological History: Reports: Other (See Below) Other Neuro History: "Nerve pain to right arm". Psychiatric History: Reports: Anxiety, Depression Endocrine/Metabolic History: Reports: Hypothyroidism Hematologic History: Reports: None Immunologic History: Reports: None Oncologic (Cancer) History: Reports: None Dermatologic History: Reports: Other (See Below) Other Dermatologic History: DERMATITIS - Infectious Disease History Infectious Disease History: Reports: Chicken Pox, Measles - Past Surgical History HEENT Surgical History: Reports: Tonsillectomy Cardiovascular Surgical History: Reports: None Respiratory Surgical History: Reports: None GI Surgical History: Reports: Appendectomy, Colonoscopy Musculoskeletal Surgical History: Reports: Arthroscopic Knee, Other (See Below) Other Musculoskeletal Surgeries/Procedures:: ELBOW ULNAR NERVE REPAIR Oncologic Surgical History: Reports: None Social & Family History - Family History Cardiac: Reports: CAD Oncologic: Reports: Breast, Lung - Tobacco Use Smoking Status *Q: Never Smoker Second Hand Smoke Exposure: No - Caffeine Use Caffeine Use: Reports: Coffee - Recreational Drug Use Recreational Drug Use: No ED ROS GENERAL - Review of Systems Review Of Systems: ROS reveals no pertinent complaints other than HPI. ED EXAM, GI/ABD - Physical Exam Exam: See Below Course - Vital Signs Last Recorded V/S: Last Vital Signs Temp 36.1 C 01/31/17 05:42 Pulse 64 01/31/17 05:42 Resp 20 01/31/17 05:42 BP 120/75 01/31/17 05:42 Pulse Ox 100 01/31/17 05:42 - Orders/Labs/Meds Orders: Active Orders 24 hr Category Date Time Status UA W/MICROSCOPIC [URIN] Stat Lab 01/31/17 07:23 Ordered Sodium Chloride 0.9% [Normal Saline] 1,000 ml Med 01/31/17 06:30 Active IV ASDIRECTED Medication Orders Sodium Chloride (Normal Saline) 1,000 mls @ 250 mls/hr IV ASDIRECTED DENISE Last Admin: 01/31/17 06:29 Dose: 250 mls/hr Labs: Laboratory Tests 01/31/17 01/31/17 01/31/17 Range/Units 06:30 06:30 06:30 WBC 5.2 (4.5-11.0) K/uL RBC 4.32 (3.30-5.50) M/uL Hgb 13.3 (12.0-15.0) g/dL Hct 36.6 (36.0-48.0) % MCV 85 (80-98) fL MCH 31 (27-31) pg MCHC 36 (32-36) % Plt Count 215 (150-400) K/uL Neut % (Auto) 65 (36-66) % Lymph % (Auto) 15 L (24-44) % [place] % (Auto) 13 H (2-6) % Eos % (Auto) 6 H (2-4) % Baso % (Auto) 1 (0-1) % Sodium 118 L* (140-148) mmol/L Potassium 4.6 (3.6-5.2) mmol/L Chloride 86 L (100-108) mmol/L Carbon Dioxide 22 (21-32) mmol/L Anion Gap 14.6 H (5.0-14.0) mmol/L BUN 10 (7-18) mg/dL Creatinine 1.1 H (0.6-1.0) mg/dL Est Cr Clr Drug Dosing 48.88 mL/min Estimated GFR (MDRD) 49 L (>60) Glucose 106 (74-106) mg/dL Lactic Acid 2.4 H (0.4-2.0) mmol/L Calcium 9.6 (8.5-10.1) mg/dL Total Bilirubin 0.7 (0.2-1.0) mg/dL AST 27 (15-37) U/L ALT 27 (12-78) U/L Alkaline Phosphatase 81 (46-116) U/L Total Protein 7.9 (6.4-8.2) g/dL Albumin 4.1 (3.4-5.0) g/dL Globulin 3.8 H (2.3-3.5) g/dL Albumin/Globulin Ratio 1.1 L (1.2-2.2) TSH, Ultra Sensitive (0.358-3.740) uIU/mL 01/31/17 Range/Units 06:30 WBC (4.5-11.0) K/uL RBC (3.30-5.50) M/uL Hgb (12.0-15.0) g/dL Hct (36.0-48.0) % MCV (80-98) fL MCH (27-31) pg MCHC (32-36) % Plt Count (150-400) K/uL Neut % (Auto) (36-66) % Lymph % (Auto) (24-44) % [place] % (Auto) (2-6) % Eos % (Auto) (2-4) % Baso % (Auto) (0-1) % Sodium (140-148) mmol/L Potassium (3.6-5.2) mmol/L Chloride (100-108) mmol/L Carbon Dioxide (21-32) mmol/L Anion Gap (5.0-14.0) mmol/L BUN (7-18) mg/dL Creatinine (0.6-1.0) mg/dL Est Cr Clr Drug Dosing mL/min Estimated GFR (MDRD) (>60) Glucose (74-106) mg/dL Lactic Acid (0.4-2.0) mmol/L Calcium (8.5-10.1) mg/dL Total Bilirubin (0.2-1.0) mg/dL AST (15-37) U/L ALT (12-78) U/L Alkaline Phosphatase (46-116) U/L Total Protein (6.4-8.2) g/dL Albumin (3.4-5.0) g/dL Globulin (2.3-3.5) g/dL Albumin/Globulin Ratio (1.2-2.2) TSH, Ultra Sensitive 10.718 H (0.358-3.740) uIU/mL Meds: Medications Generic Name Dose Route Start Last Admin Trade Name Freq PRN Reason Stop Dose Admin Sodium Chloride 1,000 mls @ 250 mls/hr 01/31/17 06:30 01/31/17 06:29 Normal Saline IV 250 mls/hr ASDIRECTED DENISE Administration Departure - Departure Time of Disposition: 07:29 Disposition: Admitted As Inpatient 68 Condition: Fair Clinical Impression: Hyponatremia Hypothyroidism Qualifiers: Hypothyroidism type: unspecified Qualified Code(s): E03.9 - Hypothyroidism, unspecified - Discharge Information Forms: ED Department Discharge - My Orders Last 24 Hours: My Active Orders 01/31/17 06:30 Sodium Chloride 0.9% [Normal Saline] 1,000 ml IV ASDIRECTED 01/31/17 07:23 UA W/MICROSCOPIC [URIN] Stat - Assessment/Plan Last 24 Hours: My Active Orders 01/31/17 06:30 Sodium Chloride 0.9% [Normal Saline] 1,000 ml IV ASDIRECTED 01/31/17 07:23 UA W/MICROSCOPIC [URIN] Stat
[2017-01-31] MEDS ORDERED: HYDROmorphone 0.5 MG/0.5 ML Syringe IVPUSH PRN (09:09)
[2017-01-31] MEDS ORDERED: Iopamidol 612 MG/ML 100 ML Bottle IV PRN (09:17)
[2017-01-31] MEDS ORDERED: Sodium Chloride 0.9% 10 ML Syringe FLUSH PRN (09:17)
--- NOTE | 2017-01-31 09:21 | PCM.HP ---
H&P History of Present Illness - General Date of Service: 01/31/17 Admit Problem/Dx: Admission Diagnosis/Problem Admission Diagnosis/Problem Hyponatremia Source of Information: Patient, Provider History Limitations: Reports: No Limitations - History of Present Illness Initial Comments - Free Text/Narative: Eileen presented to the emergency room by ambulance after a syncopal episode this morning. She has not felt well since her hospital discharge. She has been struggling with nausea and intermittent vomiting as well as diarrhea. She reports several watery bowel movements over the past few days.. She doesn't think she's been having any fevers. She has had some generalized crampy abdominal pain that comes and goes in waves. No obvious trigger to make things worse. Her usual home pain medications don't seem to make anything better. No change in bladder habits. She has had very little to eat or drink because of her nausea and vomiting. No complaints of shortness of breath. Heartburn symptoms have been fairly persistent and troubling. Workup in the emergency room has suggested hyponatremia and significant dehydration. She also has a fairly impressive abdominal pain that will need further investigation. Abdominal Pain Score (Numeric/FACES): 3 - Related Data Allergies/Adverse Reactions: Allergies Allergy/AdvReac Type Severity Reaction Status Date / Time benzocaine Allergy Itching Verified 01/30/17 05:01 omeprazole Allergy Nausea Verified 01/31/17 05:47 tramadol Allergy Hives Verified 01/30/17 05:01 Home Medications: Home Meds Betamethasone Dipropionate [Diprolene AF 0.05% Crm] 50 gm TP BID 07/16/15 [ History] Doxepin HCl [Doxepin] 10 mg PO BEDTIME 07/16/15 [History] Fexofenadine HCl 180 mg PO DAILY 07/16/15 [History] Gabapentin 300 mg PO DAILY 07/16/15 [History] Hydrocodone/Acetaminophen [Hydrocodon-Acetaminophen 5-325] 1 tab PO Q6HR PRN [History] Levothyroxine Sodium 112 mcg PO DAILY 07/16/15 [History] Montelukast Sodium 10 mg PO BEDTIME 07/16/15 [History] metroNIDAZOLE [metroNIDAZOLE 0.75% Gel] 45 gm TOP BID 07/16/15 [History] Ranitidine [Zantac] 150 mg PO DAILY 01/31/17 [History] Past Medical History HEENT History: Reports: Impaired Vision Cardiovascular History: Reports: None Respiratory History: Reports: None Gastrointestinal History: Reports: GERD Genitourinary History: Reports: UTI, Recurrent 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 Right ulnar nerve transposition. Bunion removal to left foot. Neurological History: Reports: Other (See Below) Other Neuro History: "Nerve pain to right arm". Psychiatric History: Reports: Anxiety, Depression Endocrine/Metabolic History: Reports: Hypothyroidism Hematologic History: Reports: None Immunologic History: Reports: None Oncologic (Cancer) History: Reports: None Dermatologic History: Reports: Other (See Below) Other Dermatologic History: DERMATITIS - Infectious Disease History Infectious Disease History: Reports: Chicken Pox, Measles - Past Surgical History HEENT Surgical History: Reports: Tonsillectomy Cardiovascular Surgical History: Reports: None Respiratory Surgical History: Reports: None GI Surgical History: Reports: Appendectomy, Colonoscopy Musculoskeletal Surgical History: Reports: Arthroscopic Knee, Other (See Below) Other Musculoskeletal Surgeries/Procedures:: ELBOW ULNAR NERVE REPAIR Oncologic Surgical History: Reports: None Social & Family History - Family History Cardiac: Reports: CAD Oncologic: Reports: Breast, Lung - Tobacco Use Smoking Status *Q: Never Smoker Second Hand Smoke Exposure: No - Caffeine Use Caffeine Use: Reports: Coffee - Alcohol Use Alcohol Use History: No - Recreational Drug Use Recreational Drug Use: No H&P Review of Systems - Review of Systems: Review Of Systems: See Below Free Text/Narrative: A complete 12 point review of systems was obtained. Pertinent positives and negatives are noted in the history of present illness. All other systems were reviewed and were negative except as noted. Exam - Exam Exam: See Below - Vital Signs Vital Signs: Last Vital Signs Temp 36.8 C 01/31/17 08:24 Pulse 67 01/31/17 08:24 Resp 16 01/31/17 08:24 BP 123/73 01/31/17 08:24 Pulse Ox 99 01/31/17 08:24 Weight: 68.039 kg - Exam Quality Assessment: No: Supplemental Oxygen General: Alert, Oriented, Cooperative, Mild Distress HEENT: Conjunctiva Clear. No: Mucosa Moist & [place] (very dry), Scleral Icterus Neck: Supple, Trachea Midline. No: Lymphadenopathy, Thyromegaly Lungs: Clear to Auscultation, Normal Respiratory Effort Cardiovascular: Regular Rate, Regular Rhythm, Systolic Murmur (soft chetna LLSB) GI/Abdominal Exam: Normal Bowel Sounds, Soft, No Distention, Tender (moderate LLQ and Moderately severe epigatric pain). No: Guarding, Rigid, Mass Back Exam: Normal Inspection, Full Range of Motion Extremities: Normal Inspection, Normal Range of Motion, No Pedal Edema. No: Increased Warmth Peripheral Pulses: 1+: Dorsalis Pedis (L), Dorsalis Pedis (R) Skin: Warm, Dry Neuro Extensive - Mental Status: Alert, Oriented x3, Nl Response to Commands Neuro Extensive - Motor, Sensory, Reflexes: CN II-XII Intact. No: Dysarthria, Abnormal Motor, Tremor Psychiatric: Alert, Normal Affect - Patient Data Lab Results Last 24 hrs: Laboratory Results - last 24 hr 01/31/17 01/31/17 01/31/17 Range/Units 06:30 06:30 06:30 WBC 5.2 (4.5-11.0) K/uL RBC 4.32 (3.30-5.50) M/uL Hgb 13.3 (12.0-15.0) g/dL Hct 36.6 (36.0-48.0) % MCV 85 (80-98) fL MCH 31 (27-31) pg MCHC 36 (32-36) % Plt Count 215 (150-400) K/uL Neut % (Auto) 65 (36-66) % Lymph % (Auto) 15 L (24-44) % [place] % (Auto) 13 H (2-6) % Eos % (Auto) 6 H (2-4) % Baso % (Auto) 1 (0-1) % Sodium 118 L* (140-148) mmol/L Potassium 4.6 (3.6-5.2) mmol/L Chloride 86 L (100-108) mmol/L Carbon Dioxide 22 (21-32) mmol/L Anion Gap 14.6 H (5.0-14.0) mmol/L BUN 10 (7-18) mg/dL Creatinine 1.1 H (0.6-1.0) mg/dL Est Cr Clr Drug Dosing 48.88 mL/min Estimated GFR (MDRD) 49 L (>60) Glucose 106 (74-106) mg/dL Lactic Acid 2.4 H (0.4-2.0) mmol/L Calcium 9.6 (8.5-10.1) mg/dL Total Bilirubin 0.7 (0.2-1.0) mg/dL AST 27 (15-37) U/L ALT 27 (12-78) U/L Alkaline Phosphatase 81 (46-116) U/L Total Protein 7.9 (6.4-8.2) g/dL Albumin 4.1 (3.4-5.0) g/dL Globulin 3.8 H (2.3-3.5) g/dL Albumin/Globulin Ratio 1.1 L (1.2-2.2) Free T4 (0.76-1.46) ng/dL TSH, Ultra Sensitive (0.358-3.740) uIU/mL Urine Color Urine Appearance Urine pH (4.5-8.0) Ur Specific [place] (1.008-1.030) Urine Protein (NEGATIVE) mg/dL Urine Glucose (UA) (NEGATIVE) mg/dL Urine Ketones (NEGATIVE) mg/dL Urine Occult Blood (NEGATIVE) Urine Nitrite (NEGATIVE) Urine Bilirubin (NEGATIVE) Urine Urobilinogen (NORMAL) mg/dL Ur Leukocyte Esterase (NEGATIVE) Urine RBC (0-5) Urine WBC (0-5) Ur Epithelial Cells Amorphous Sediment Urine Bacteria Urine Mucus 01/31/17 01/31/17 01/31/17 Range/Units 06:30 07:23 08:00 WBC (4.5-11.0) K/uL RBC (3.30-5.50) M/uL Hgb (12.0-15.0) g/dL Hct (36.0-48.0) % MCV (80-98) fL MCH (27-31) pg MCHC (32-36) % Plt Count (150-400) K/uL Neut % (Auto) (36-66) % Lymph % (Auto) (24-44) % [place] % (Auto) (2-6) % Eos % (Auto) (2-4) % Baso % (Auto) (0-1) % Sodium (140-148) mmol/L Potassium (3.6-5.2) mmol/L Chloride (100-108) mmol/L Carbon Dioxide (21-32) mmol/L Anion Gap (5.0-14.0) mmol/L BUN (7-18) mg/dL Creatinine (0.6-1.0) mg/dL Est Cr Clr Drug Dosing mL/min Estimated GFR (MDRD) (>60) Glucose (74-106) mg/dL Lactic Acid (0.4-2.0) mmol/L Calcium (8.5-10.1) mg/dL Total Bilirubin (0.2-1.0) mg/dL AST (15-37) U/L ALT (12-78) U/L Alkaline Phosphatase (46-116) U/L Total Protein (6.4-8.2) g/dL Albumin (3.4-5.0) g/dL Globulin (2.3-3.5) g/dL Albumin/Globulin Ratio (1.2-2.2) Free T4 1.77 H (0.76-1.46) ng/dL TSH, Ultra Sensitive 10.718 H (0.358-3.740) uIU/mL Urine Color Yellow Urine Appearance Clear Urine pH 6.0 (4.5-8.0) Ur Specific [place] 1.015 (1.008-1.030) Urine Protein Negative (NEGATIVE) mg/dL Urine Glucose (UA) Normal (NEGATIVE) mg/dL Urine Ketones 15 H (NEGATIVE) mg/dL Urine Occult Blood Negative (NEGATIVE) Urine Nitrite Negative (NEGATIVE) Urine Bilirubin Negative (NEGATIVE) Urine Urobilinogen Normal (NORMAL) mg/dL Ur Leukocyte Esterase Negative (NEGATIVE) Urine RBC 0-5 (0-5) Urine WBC 0-5 (0-5) Ur Epithelial Cells Not seen Amorphous Sediment Not seen Urine Bacteria Not seen Urine Mucus Not seen Result Diagrams: 01/31/17 06:30 01/31/17 06:30 *Q Meaningful Use (ADM) - VTE *Q VTE Criteria *Q: - VTE Risk Assess *Q Each Risk Factor Represents 1 Point: None Total Score 1 Point Risk Factors: 0 Each Risk Factor Represents 2 Points: Age 60 - 74 Years Total Score 2 Point Risk Factors: 2 Each Risk Factor Represents 3 Points: None Total Score 3 Point Risk Factors: 0 Each Risk Factor Represents 5 Points: None Total Score 5 Point Risk Factors: 0 Venous Thromboembolism Risk Factor Score *Q: 2 - Stroke *Q Stroke Criteria *Q: - AMI *Q AMI Criteria *Q: - Problem List (1) Epigastric abdominal pain SNOMED Code(s): 23641929 ICD Code: R10.13 - EPIGASTRIC PAIN Status: Acute Current Visit: No (2) Nausea and vomiting SNOMED Code(s): 40090453 ICD Code: R11.2 - NAUSEA WITH VOMITING, UNSPECIFIED Status: Acute Current Visit: Yes Qualifiers: Vomiting type: unspecified Vomiting Intractability: non-intractable Qualified Code(s): R11.2 - Nausea with vomiting, unspecified (3) Hyponatremia SNOMED Code(s): 65055048 ICD Code: E87.1 - HYPO-OSMOLALITY AND HYPONATREMIA Status: Acute Current Visit: Yes Problem List Initiated/Reviewed/Updated: Yes Orders Last 24hrs: Active Orders 24 hr Category Date Time Status Patient Status Manage Transfer [TRANSFER] Routine ADT 01/31/17 09:10 Ordered Abdomen Pelvis w Cont [CT] Stat Exams 01/31/17 09:08 Ordered CLOSTRIDIUM DIFFICILE BY PCR [RM] Routine Lab 01/31/17 09:08 Uncollected HYDROmorphone [Dilaudid] Med 01/31/17 09:09 Active 0.25 - 0.5 mg IVPUSH Q2H PRN Iopamidol [Isovue-300 (61%)] Med 01/31/17 09:17 Ordered 100 ml IV . DIRECTED PRN Ondansetron [Zofran] Med 01/31/17 09:09 Active 4 mg IVPUSH Q6H PRN Sodium Chloride 0.9% [Normal Saline] 1,000 ml Med 01/31/17 06:30 Active IV ASDIRECTED Sodium Chloride 0.9% [Normal Saline] 70 ml Med 01/31/17 09:17 Ordered IV ASDIRECTED Sodium Chloride 0.9% [Saline Flush] Med 01/31/17 09:17 Ordered 10 ml FLUSH . DIRECTED PRN Resuscitation Status Routine Resus Stat 01/31/17 09:11 Ordered Medication Orders Hydromorphone HCl (Dilaudid) 0.25 - 0.5 mg IVPUSH Q2H PRN PRN Reason: Pain Sodium Chloride (Normal Saline) 1,000 mls @ 250 mls/hr IV ASDIRECTED DENISE Last Admin: 01/31/17 06:29 Dose: 250 mls/hr Ondansetron HCl (Zofran) 4 mg IVPUSH Q6H PRN PRN Reason: Nausea/Vomiting Assessment/Plan Comment:: Assessment and plan - Epigastric abdominal pain with diarrhea, nausea and vomiting - etiology not entirely clear but given duration of symptoms she will need additional workup. she has had recent antibiotics and there is some concern for Clostridium difficile infection. She is not currently afebrile. White blood cell count is normal. Gallbladder pathology is a possibility given correlation with trying to eat though it does appear normal based on imaging so far. -CT scan of the abdomen and pelvis -Pain control -Nausea control -IV fluids -C. difficile testing if she has additional diarrhea -consider HIDA scan if symptoms persist despite above measures Hyponatremia - suspect hypovolemic hyponatremia with recent diarrhea and poor intake. This could account for her weakness and lethargy. -IV fluids -Repeat level this evening Acquired hypothyroidism - TSH mildly elevated but free T4 is mildly elevated as well. Probable mild elevation in TSH is related to acute illness. -Continue supplementation Maintenance issues - - DVT prophylaxis - mechanical - GI prophylaxis - H2 jazlyn - Nutrition - clear liquids - Osorio catheter - not indicated CODE STATUS - full code Admission justification - This patient will be admitted for inpatient services and is medically appropriate meeting medical necessity for inpatient admission as outlined in my documentation. I reasonably expect the patient will require inpatient services that span a period time over 2 midnights. I reasonably expect this patient to be discharged or transferred within 96 hours [facility] Disposition - anticipate discharge home after the hospital stay Primary care physician - Dr. Dilip Jung M.D.
--- NOTE | 2017-01-31 10:06 | CT ---
CT abdomen and pelvis. Indication: Epigastric pain and left lower quadrant pain. Total DLP 550. Comparison: 01/27/2017. Findings: Tiny hypodensity within the liver is too small to characterize. There is an enhancing 1 cm mass within the right lobe of the liver. This is at the inferior margin. Adrenal glands are within normal limits. Spleen within normal limits. No definitive gallstones. No dilated loops of large or s mall bowel. Pancreas within normal limits. Spleen within normal limits. No hydronephrosis. No eviden ce for obstructing stone. Tiny hypodensities left kidney too small to characterize. No small bowel w all thickening. No evidence for sigmoid diverticulitis. Bladder is unremarkable. The appendix is aga in nonvisualized on this examination. Terminal ileum within normal limits. Questionable mild wall th ickening diffusely within the ascending colon which may be due to underdistention only. No focal flu id collection. Bone islands within the left ilium. No acute osseous abnormality. Impression: 1. No definitive acute intra-abdominal or pelvic process by CT. 2. Contrast enhancing mass the liver is likely indicative of a flash filling hemangioma which was ev ident on prior CT. Recommend nonemergent targeted ultrasound to confirm. 3. Wall thickening of the ascending colon is likely due to underdistention right than colitis. Corre late clinically.
[2017-01-31] MEDS ORDERED: Acetaminophen 325 MG Tab PO PRN (10:11)
[2017-01-31] MEDS ORDERED: Acetaminophen/HYDROcodone 325-5 MG Tab PO PRN (10:11)
[2017-01-31] MEDS ORDERED: LORazepam 2 MG/ML MDV IVPUSH PRN (10:11)
[2017-01-31] MEDS: Ondansetron 4 MG/2 ML SDV IVPUSH PRN (10:26)
[2017-01-31] MEDS: Dextrose 5%-0.9% NaCl 1,000 ML IV SCH ×2 (10:31→18:47)
[2017-01-31] MEDS: Famotidine 20 MG/2 ML SDV IVPUSH SCH ×2 (11:09→20:25)
[2017-01-31] MEDS: Ondansetron 4 MG Tab.DIS PO PRN (16:34)
[2017-02-01] MEDS: Dextrose 5%-0.9% NaCl 1,000 ML IV SCH ×2 (02:57→10:55)
[2017-02-01] MEDS: Gabapentin 300 MG Cap PO SCH (08:54)
[2017-02-01] MEDS: Famotidine 20 MG/2 ML SDV IVPUSH SCH ×2 (08:54→21:45)
[2017-02-01] MEDS: Levothyroxine 112 MCG Tab PO SCH (08:54)
[2017-02-01] MEDS ORDERED: Levothyroxine 88 MCG Tab PO SCH (09:00)
--- NOTE | 2017-02-01 11:07 | PCM.PN ---
- General Info Date of Service: 02/01/17 Functional Status: Reports: Pain Controlled, Tolerating Diet - Review of Systems General: Reports: Weakness. Denies: Fever Gastrointestinal: Denies: Abdominal Pain, Diarrhea Systems Review Comment:: No acute events overnight. She is feeling a little better today with less nausea and much less abdominal pain. She has not had any diarrhea since the time of admission. She has been able to get down small quantities of fluids but she is very nervous about trying to eat anything because of recent difficulties with pain and vomiting following eating food. She did not have any fevers. Sodium level is trending towards normal. Kidney function stable and near baseline. - Patient Data Vitals - Most Recent: Last Vital Signs Temp 36.5 C 02/01/17 07:00 Pulse 65 02/01/17 07:00 Resp 18 02/01/17 07:00 BP 117/69 02/01/17 07:00 Pulse Ox 99 02/01/17 07:00 Weight - Most Recent: 68.039 kg I&O - Last 24 Hours: Intake & Output 01/31/17 02/01/17 02/01/17 22:59 06:59 14:59 Intake Total 1710 1400 600 Output Total 850 1400 Balance 860 0 600 Lab Results Last 24 Hours: Laboratory Results - last 24 hr 01/31/17 02/01/17 02/01/17 Range/Units 18:02 05:22 05:22 WBC 3.8 L (4.5-11.0) K/uL RBC 3.89 (3.30-5.50) M/uL Hgb 11.7 L (12.0-15.0) g/dL Hct 34.0 L (36.0-48.0) % MCV 87 (80-98) fL MCH 30 (27-31) pg MCHC 34 (32-36) % Plt Count 221 (150-400) K/uL Sodium 122 L 128 L (140-148) mmol/L Potassium 4.5 (3.6-5.2) mmol/L Chloride 98 L (100-108) mmol/L Carbon Dioxide 25 (21-32) mmol/L Anion Gap 9.5 (5.0-14.0) mmol/L BUN 4 L D (7-18) mg/dL Creatinine 1.0 (0.6-1.0) mg/dL Est Cr Clr Drug Dosing 53.77 mL/min Estimated GFR (MDRD) 55 L (>60) Glucose 115 H (74-106) mg/dL Calcium 8.3 L (8.5-10.1) mg/dL Med Orders - Current: Current Medications Acetaminophen (Tylenol) 650 mg PO Q4H PRN PRN Reason: Pain (Mild 1-3)/fever Last Admin: 01/31/17 13:55 Dose: 650 mg Hydrocodone Bitart/Acetaminophen ([place] 325-5 Mg) 1 tab PO Q6H PRN PRN Reason: Pain Last Admin: 02/01/17 03:24 Dose: 1 tab Famotidine (Pepcid) 20 mg IVPUSH BID [facility] Last Admin: 02/01/17 08:54 Dose: 20 mg Gabapentin (Neurontin) 300 mg PO DAILY [facility] Last Admin: 02/01/17 08:54 Dose: 300 mg Hydromorphone HCl (Dilaudid) 0.25 - 0.5 mg IVPUSH Q2H PRN PRN Reason: Pain Levothyroxine Sodium (Levothyroxine) 112 mcg PO ACBREAKFAST [facility] Last Admin: 02/01/17 08:54 Dose: 112 mcg Lorazepam (Ativan) 0.5 mg IVPUSH Q4H PRN PRN Reason: Nausea/Vomiting Last Admin: 01/31/17 15:26 Dose: 0.5 mg Ondansetron HCl (Zofran) 4 mg IVPUSH Q6H PRN PRN Reason: Nausea/Vomiting Last Admin: 01/31/17 10:26 Dose: 4 mg Ondansetron HCl (Zofran Odt) 4 mg PO Q6H PRN PRN Reason: Nausea able to take PO Last Admin: 01/31/17 16:34 Dose: 4 mg Discontinued Medications Sodium Chloride (Normal Saline) 1,000 mls @ 250 mls/hr IV ASDIRECTED [facility] Last Admin: 01/31/17 06:29 Dose: 250 mls/hr Sodium Chloride (Normal Saline) 70 mls @ 3 mls/sec IV ASDIRECTED ONE Stop: 01/31/17 09:18 Last Admin: 01/31/17 09:32 Dose: 3 mls/sec Dextrose/Sodium Chloride (Dextrose 5%-Normal Saline) 1,000 mls @ 125 mls/hr IV ASDIRECTED DENISE Last Admin: 02/01/17 10:55 Dose: 125 mls/hr Iopamidol (Isovue-300 (61%)) 100 ml IV . DIRECTED PRN PRN Reason: RADIOLOGY EXAM Stop: 01/31/17 09:18 Last Admin: 01/31/17 09:32 Dose: 100 ml Sodium Chloride (Saline Flush) 10 ml FLUSH . DIRECTED PRN PRN Reason: [id number] EXAM Stop: 01/31/17 09:18 Last Admin: 01/31/17 09:32 Dose: 10 ml - Exam Quality Assessment: No: Supplemental Oxygen General: Alert, Oriented, Cooperative, No Acute Distress Neck: Supple Lungs: Normal Respiratory Effort GI/Abdominal Exam: Soft, Non-Tender, No Distention Extremities: Normal Inspection, No Pedal Edema Skin: Warm, Dry Psy/Mental Status: Alert, Normal Affect - Problem List & Annotations (1) Epigastric abdominal pain SNOMED Code(s): 87588340 Code(s): R10.13 - EPIGASTRIC PAIN Status: Acute Current Visit: No (2) Nausea and vomiting SNOMED Code(s): 50226210 Code(s): R11.2 - NAUSEA WITH VOMITING, UNSPECIFIED Status: Acute Current Visit: Yes Qualifiers: Vomiting type: unspecified Vomiting Intractability: non-intractable Qualified Code(s): R11.2 - Nausea with vomiting, unspecified (3) Hyponatremia SNOMED Code(s): 97096941 Code(s): E87.1 - HYPO-OSMOLALITY AND HYPONATREMIA Status: Acute Current Visit: Yes - Problem List Review Problem List Initiated/Reviewed/Updated: Yes - My Orders Last 24 Hours: My Active Orders 01/31/17 10:11 Patient Status [ADT] Routine Notify Provider Vital Signs [RC] ASDIRECTED Oxygen Therapy [RC] PRN Up With Assistance [RC] ASDIRECTED VTE/DVT Education [RC] Per Unit Routine Vital Signs [RC] Q4H Acetaminophen [Tylenol] 650 mg PO Q4H PRN LORazepam [Ativan] 0.5 mg IVPUSH Q4H PRN Ondansetron [Zofran ODT] 4 mg PO Q6H PRN Sequential Compression Device [OM.PC] Per Unit Routine 01/31/17 11:00 Famotidine [Pepcid] 20 mg IVPUSH BID 01/31/17 Lunch Clear Liquid Diet [DIET] 02/01/17 07:30 Levothyroxine 112 mcg PO ACBREAKFAST 02/01/17 11:05 Dextrose 5%-0.9% NaCl [Dextrose 5%-Normal Saline] 1,000 ml IV ASDIRECTED 02/02/17 05:00 BASIC METABOLIC PANEL,BMP [CHEM] Timed CBC W/O DIFF,HEMOGRAM [HEME] Timed (1) 02/03/17 07:00 Cholescintigraphy w Pharm Int [NM] Routine - Plan Plan:: Assessment and plan - Epigastric abdominal pain with diarrhea, nausea and vomiting - etiology not entirely clear and so far workup has been unremarkable. Gallbladder pathology is a possibility. No obvious culprit based on medications. Recent EGD did not reveal significant abnormality. Diarrhea resolved without intervention so likely not Clostridium difficile -Pain control -Nausea control -Gentle IV fluids -HIDA on Friday Hyponatremia - suspect hypovolemic hyponatremia with recent diarrhea and poor intake. Level slowly improving with IV fluids -IV fluids -Repeat level in the morning Acquired hypothyroidism - TSH mildly elevated but free T4 is mildly elevated as well. Probable mild elevation in TSH is related to acute illness. -Continue supplementation Maintenance issues - - DVT prophylaxis - mechanical - GI prophylaxis - H2 jazlyn - Nutrition - clear liquids Disposition - anticipate discharge home after the hospital stay Xu Jung M.D.
[2017-02-02] MEDS: Dextrose 5%-0.9% NaCl 1,000 ML IV SCH (06:22)
[2017-02-02] MEDS: Levothyroxine 112 MCG Tab PO SCH (07:54)
[2017-02-02] MEDS: Gabapentin 300 MG Cap PO SCH (09:28)
[2017-02-02] MEDS: Famotidine 20 MG/2 ML SDV IVPUSH SCH ×2 (09:32→20:17)
[2017-02-02] MEDS: Ondansetron 4 MG Tab.DIS PO PRN (11:49)
--- NOTE | 2017-02-02 12:16 | PCM.PN ---
- General Info Date of Service: 02/02/17 Functional Status: Reports: Pain Controlled, Tolerating Diet, Ambulating - Review of Systems General: Reports: Weakness. Denies: Fever Gastrointestinal: Reports: Abdominal Pain Systems Review Comment:: No acute events overnight. No significant pain throughout the day or night but she does have some nausea this morning. This started after she woke up. She has not had any fevers. Vital signs have all remained stable. Ongoing mild right upper quadrant abdominal pain. No diarrhea. - Patient Data Vitals - Most Recent: Last Vital Signs Temp 36.7 C 02/02/17 12:00 Pulse 70 02/02/17 12:00 Resp 18 02/02/17 12:00 BP 126/77 02/02/17 12:00 Pulse Ox 96 02/02/17 12:00 Weight - Most Recent: 68.039 kg I&O - Last 24 Hours: Intake & Output 02/01/17 02/02/17 02/02/17 22:59 06:59 14:59 Intake Total 1752 463 600 Output Total 1300 1225 200 Balance 452 -762 400 Lab Results Last 24 Hours: Laboratory Results - last 24 hr 02/02/17 02/02/17 Range/Units 05:00 05:48 WBC 4.8 (4.5-11.0) K/uL RBC 3.90 (3.30-5.50) M/uL Hgb 11.6 L (12.0-15.0) g/dL Hct 34.6 L (36.0-48.0) % MCV 89 (80-98) fL MCH 30 (27-31) pg MCHC 34 (32-36) % Plt Count 234 (150-400) K/uL Sodium 132 L (140-148) mmol/L Potassium 4.1 (3.6-5.2) mmol/L Chloride 102 (100-108) mmol/L Carbon Dioxide 24 (21-32) mmol/L Anion Gap 10.1 (5.0-14.0) mmol/L BUN 2 L (7-18) mg/dL Creatinine 0.9 (0.6-1.0) mg/dL Est Cr Clr Drug Dosing 59.75 mL/min Estimated GFR (MDRD) > 60 (>60) Glucose 85 (74-106) mg/dL Calcium 8.8 (8.5-10.1) mg/dL Med Orders - Current: Current Medications Acetaminophen (Tylenol) 650 mg PO Q4H PRN PRN Reason: Pain (Mild 1-3)/fever Last Admin: 01/31/17 13:55 Dose: 650 mg Hydrocodone Bitart/Acetaminophen ([place] 325-5 Mg) 1 tab PO Q6H PRN PRN Reason: Pain Last Admin: 02/01/17 03:24 Dose: 1 tab Famotidine (Pepcid) 20 mg IVPUSH BID [facility] Last Admin: 02/02/17 09:32 Dose: 20 mg Gabapentin (Neurontin) 300 mg PO DAILY [facility] Last Admin: 02/02/17 09:28 Dose: 300 mg Hydromorphone HCl (Dilaudid) 0.25 - 0.5 mg IVPUSH Q2H PRN PRN Reason: Pain Dextrose/Sodium Chloride (Dextrose 5%-Normal Saline) 1,000 mls @ 50 mls/hr IV ASDIRECTED [facility] Last Admin: 02/02/17 06:22 Dose: 50 mls/hr Levothyroxine Sodium (Levothyroxine) 112 mcg PO ACBREAKFAST [facility] Last Admin: 02/02/17 07:54 Dose: 112 mcg Lorazepam (Ativan) 0.5 mg IVPUSH Q4H PRN PRN Reason: Nausea/Vomiting Last Admin: 01/31/17 15:26 Dose: 0.5 mg Ondansetron HCl (Zofran) 4 mg IVPUSH Q6H PRN PRN Reason: Nausea/Vomiting Last Admin: 01/31/17 10:26 Dose: 4 mg Ondansetron HCl (Zofran Odt) 4 mg PO Q6H PRN PRN Reason: Nausea able to take PO Last Admin: 02/02/17 11:49 Dose: 4 mg Discontinued Medications Sodium Chloride (Normal Saline) 1,000 mls @ 250 mls/hr IV ASDIRECTED [facility] Last Admin: 01/31/17 06:29 Dose: 250 mls/hr Sodium Chloride (Normal Saline) 70 mls @ 3 mls/sec IV ASDIRECTED ONE Stop: 01/31/17 09:18 Last Admin: 01/31/17 09:32 Dose: 3 mls/sec Dextrose/Sodium Chloride (Dextrose 5%-Normal Saline) 1,000 mls @ 125 mls/hr IV ASDIRECTED [facility] Last Admin: 02/01/17 10:55 Dose: 125 mls/hr Iopamidol (Isovue-300 (61%)) 100 ml IV . DIRECTED PRN PRN Reason: RADIOLOGY EXAM Stop: 01/31/17 09:18 Last Admin: 01/31/17 09:32 Dose: 100 ml Sodium Chloride (Saline Flush) 10 ml FLUSH . DIRECTED PRN PRN Reason: [id number] EXAM Stop: 01/31/17 09:18 Last Admin: 01/31/17 09:32 Dose: 10 ml - Exam Quality Assessment: No: Supplemental Oxygen General: Alert, Oriented, Cooperative, No Acute Distress Neck: Supple Lungs: Normal Respiratory Effort GI/Abdominal Exam: Soft, No Distention, Tender (mild RUQ) Extremities: No Pedal Edema. No: Increased Warmth Skin: Warm, Dry Psy/Mental Status: Alert, Normal Affect - Problem List & Annotations (1) Epigastric abdominal pain SNOMED Code(s): 88551091 Code(s): R10.13 - EPIGASTRIC PAIN Status: Acute Current Visit: No (2) Nausea and vomiting SNOMED Code(s): 38197855 Code(s): R11.2 - NAUSEA WITH VOMITING, UNSPECIFIED Status: Acute Current Visit: Yes Qualifiers: Vomiting type: unspecified Vomiting Intractability: non-intractable Qualified Code(s): R11.2 - Nausea with vomiting, unspecified (3) Hyponatremia SNOMED Code(s): 01844210 Code(s): E87.1 - HYPO-OSMOLALITY AND HYPONATREMIA Status: Acute Current Visit: Yes - Problem List Review Problem List Initiated/Reviewed/Updated: Yes - My Orders Last 24 Hours: My Active Orders 02/02/17 Dinner NPO After Midnight [Nothing per Oral After Midnight Diet] [DIET] 02/03/17 05:00 BASIC METABOLIC PANEL,BMP [CHEM] Timed 02/03/17 07:00 Cholescintigraphy w Pharm Int [NM] Routine - Plan Plan:: Assessment and plan - Epigastric abdominal pain with diarrhea, nausea and vomiting - etiology not entirely clear and so far workup has been unremarkable. Gallbladder pathology is a possibility. No obvious culprit based on medications. Recent EGD did not reveal significant abnormality. Diarrhea resolved without intervention so likely not Clostridium difficile -Pain control -Nausea control -Gentle IV fluids -HIDA on Friday -consult Dr Lucero if HIDA abnormal Hyponatremia - suspect hypovolemic hyponatremia with recent diarrhea and poor intake. Level has nearly normalized with IV fluids. -Gentle IV fluids -Repeat level in the morning Acquired hypothyroidism - TSH mildly elevated but free T4 is mildly elevated as well. Probable mild elevation in TSH is related to acute illness. -Continue supplementation -Repeat labs as an outpatient Maintenance issues - - DVT prophylaxis - mechanical - GI prophylaxis - H2 jazlyn - Nutrition - clear liquids Disposition - anticipate discharge home after the hospital stay Xu Jung M.D.
[2017-02-03] MEDS: Dextrose 5%-0.9% NaCl 1,000 ML IV SCH (02:21)
[2017-02-03] MEDS: Ondansetron 4 MG/2 ML SDV IVPUSH PRN (03:57)
[2017-02-03] MEDS: Famotidine 20 MG/2 ML SDV IVPUSH SCH ×2 (11:08→21:35)
[2017-02-03] MEDS: Gabapentin 300 MG Cap PO SCH (11:08)
[2017-02-03] MEDS: Levothyroxine 112 MCG Tab PO SCH (11:08)
--- NOTE | 2017-02-03 11:31 | NM ---
Cholescintigraphy w Pharm Int HISTORY: post prandial abdominal pain and nausea Hepatobiliary imaging study is obtained following intravenous administration of 5.45 millicuries carlotta hnetium 99m Choletec. Ejection fraction portion of the study is obtained approximately 60 minutes in to the exam following intravenous administration of 1.36 micrograms of CCK. FINDINGS: Radiotracer uptake in the liver is homogeneous. Common bile duct activity seen at 15 minutes. Gallbl adder activity seen at 65 minutes and increases to the end of study. GI tract activity can be seen a t 20 minutes and increases to the end of the exam. Calculated a gallbladder ejection fraction is mildly decreased measuring 31% (normal 35% and above). IMPRESSION: Appearance of activity in the gallbladder is mildly delayed. Hepatobiliary scan portion of the study is otherwise within normal limits. Mildly low ejection fraction measures 31%.
--- NOTE | 2017-02-03 13:51 | PCM.PN ---
- General Info Date of Service: 02/03/17 Functional Status: Reports: Pain Controlled, Ambulating - Review of Systems General: Reports: Weakness. Denies: Fever, Chills Pulmonary: Reports: No Symptoms Cardiovascular: Reports: No Symptoms Gastrointestinal: Reports: Abdominal Pain, Decreased Appetite, Nausea, Vomiting. Denies: Difficulty Swallowing Systems Review Comment:: Ms. Webber is a 71-year-old woman is experienced difficulty with abdominal pain nausea and vomiting. EGD was unremarkable as was abdominal ultrasound. CCK stimulated HIDA scan obtained today shows a decreased ejection fraction of 31% and injection of cholecystokinin did reproduce her symptoms. - Patient Data Vitals - Most Recent: Last Vital Signs Temp 97.7 F 02/03/17 02:22 Pulse 67 02/03/17 02:22 Resp 18 02/03/17 02:22 BP 120/69 02/03/17 02:22 Pulse Ox 96 02/03/17 02:22 Weight - Most Recent: 150 lb 0.005 oz I&O - Last 24 Hours: Intake & Output 02/02/17 02/03/17 02/03/17 22:59 06:59 14:59 Intake Total 1890 840 Output Total 650 3200 Balance 1240 -2360 Lab Results Last 24 Hours: Laboratory Results - last 24 hr 02/03/17 Range/Units 05:45 Sodium 135 L (140-148) mmol/L Potassium 4.0 (3.6-5.2) mmol/L Chloride 101 (100-108) mmol/L Carbon Dioxide 27 (21-32) mmol/L Anion Gap 11.0 (5.0-14.0) mmol/L BUN 2 L (7-18) mg/dL Creatinine 1.0 (0.6-1.0) mg/dL Est Cr Clr Drug Dosing 53.77 mL/min Estimated GFR (MDRD) 55 L (>60) Glucose 90 (74-106) mg/dL Calcium 9.0 (8.5-10.1) mg/dL Med Orders - Current: Current Medications Acetaminophen (Tylenol) 650 mg PO Q4H PRN PRN Reason: Pain (Mild 1-3)/fever Last Admin: 01/31/17 13:55 Dose: 650 mg Hydrocodone Bitart/Acetaminophen ([place] 325-5 Mg) 1 tab PO Q6H PRN PRN Reason: Pain Last Admin: 02/01/17 03:24 Dose: 1 tab Famotidine (Pepcid) 20 mg IVPUSH BID [facility] Last Admin: 02/03/17 11:08 Dose: Not Given Gabapentin (Neurontin) 300 mg PO DAILY [facility] Last Admin: 02/03/17 11:08 Dose: 300 mg Hydromorphone HCl (Dilaudid) 0.25 - 0.5 mg IVPUSH Q2H PRN PRN Reason: Pain Lactated Ringer's (Ringers, Lactated) 1,000 mls @ 125 mls/hr IV ASDIRECTED [facility] Levothyroxine Sodium (Levothyroxine) 112 mcg PO ACBREAKFAST [facility] Last Admin: 02/03/17 11:08 Dose: 112 mcg Lorazepam (Ativan) 0.5 mg IVPUSH Q4H PRN PRN Reason: Nausea/Vomiting Last Admin: 01/31/17 15:26 Dose: 0.5 mg Ondansetron HCl (Zofran) 4 mg IVPUSH Q6H PRN PRN Reason: Nausea/Vomiting Last Admin: 02/03/17 03:57 Dose: 4 mg Ondansetron HCl (Zofran Odt) 4 mg PO Q6H PRN PRN Reason: Nausea able to take PO Last Admin: 02/02/17 11:49 Dose: 4 mg Discontinued Medications Sodium Chloride (Normal Saline) 1,000 mls @ 250 mls/hr IV ASDIRECTED [facility] Last Admin: 01/31/17 06:29 Dose: 250 mls/hr Sodium Chloride (Normal Saline) 70 mls @ 3 mls/sec IV ASDIRECTED ONE Stop: 01/31/17 09:18 Last Admin: 01/31/17 09:32 Dose: 3 mls/sec Dextrose/Sodium Chloride (Dextrose 5%-Normal Saline) 1,000 mls @ 125 mls/hr IV ASDIRECTED [facility] Last Admin: 02/01/17 10:55 Dose: 125 mls/hr Dextrose/Sodium Chloride (Dextrose 5%-Normal Saline) 1,000 mls @ 50 mls/hr IV ASDIRECTED [facility] Last Admin: 02/03/17 02:21 Dose: 50 mls/hr Iopamidol (Isovue-300 (61%)) 100 ml IV . DIRECTED PRN PRN Reason: RADIOLOGY EXAM Stop: 01/31/17 09:18 Last Admin: 01/31/17 09:32 Dose: 100 ml Sodium Chloride (Saline Flush) 10 ml FLUSH . DIRECTED PRN PRN Reason: [id number] EXAM Stop: 01/31/17 09:18 Last Admin: 01/31/17 09:32 Dose: 10 ml - Exam General: Alert, Oriented, Cooperative, Mild Distress Lungs: Clear to Auscultation, Normal Respiratory Effort Cardiovascular: Regular Rate, Regular Rhythm, No Murmurs GI/Abdominal Exam: Normal Bowel Sounds, Soft, Non-Tender, No Distention Extremities: Normal Inspection, No Pedal Edema Skin: Warm, Dry, Intact - Problem List Review Problem List Initiated/Reviewed/Updated: Yes - My Orders Last 24 Hours: My Active Orders 02/03/17 13:39 Convert IV to Saline Lock [OM.PC] Routine 02/03/17 13:40 Consult to Physician [CONS] Routine 02/03/17 13:41 Notify Provider Consults [RC] ASDIRECTED 02/03/17 Lunch Clear Liquid Diet [DIET] 02/04/17 00:01 Lactated Ringers @ 125 MLS/HR(1000ml) Lactated Ringers [Ringers, Lactated] 1, 000 ml IV ASDIRECTED 02/04/17 Breakfast Nothing per Oral After Midnight Diet [DIET] - Plan Plan:: Assessment and plan - Cholecystitis- HIDA scan obtained today was abnormal and the cholecystokinin did reproduce her symptoms -Pain control -Nausea control -Saline lock IV, resume IV fluids after midnight -Clear liquid diet, nothing by mouth after midnight -Consult Dr. Peralta for surgical opinion Hyponatremia - suspect hypovolemic hyponatremia with recent diarrhea and poor intake. Level has nearly normalized with IV fluids. -Saline lock IV Acquired hypothyroidism - TSH mildly elevated but free T4 is mildly elevated as well. Probable mild elevation in TSH is related to acute illness. -Continue supplementation -Repeat labs as an outpatient Maintenance issues - - DVT prophylaxis - mechanical - GI prophylaxis - H2 jazlyn - Nutrition - clear liquids Disposition - anticipate discharge home after the hospital stay
[2017-02-03] MEDS ORDERED: [UNRECOGNIZED DRUG - OTHER] TOP SCH (21:00)
[2017-02-04] MEDS ORDERED: Lactated Ringers 1,000 ML IV SCH (00:01)
[2017-02-04] MEDS: Ondansetron 4 MG/2 ML SDV IVPUSH PRN (01:13)
[2017-02-04] MEDS ORDERED: HYDROmorphone/Normal Saline 15 MG/30 ML PCA IV PRN (07:36)
[2017-02-04] MEDS ORDERED: Naloxone 0.4 MG/ML SDV IV PRN (07:36)
[2017-02-04] MEDS: Levothyroxine 112 MCG Tab PO SCH (07:39)
[2017-02-04] MEDS ORDERED: Dextrose 5%-Lactated Ringers 1,000 ML IV SCH (07:45)
[2017-02-04] MEDS: Gabapentin 300 MG Cap PO SCH (08:06)
--- NOTE | 2017-02-04 09:23 | CONS ---
DATE OF SERVICE: 02/04/2017 REFERRING PHYSICIAN: CONSULTING PHYSICIAN: Justyna Cross PA-C ADMISSION DIAGNOSES: 1. Nausea and vomiting. 2. Reflux esophagitis. 3. Hyponatremia. 4. Hypothyroidism. 5. Renal insufficiency. 6. Dehydration. 7. Abdominal pain. 8. Osteoarthritis. 9. Nerve pain to right arm. 10.Anxiety. 11.Depression. 12.Hypothyroidism. HISTORY OF PRESENT ILLNESS: Eileen presented to the emergency room by ambulance after had syncope episodes. She has had nausea and struggling with vomiting and abdominal pain. She was in the ER and had a HIDA scan. She did have a cholescintigraphy and her ejection fraction was 31% and a consult was made to Surgery Department for biliary dyskinesia. PAST MEDICAL HISTORY: Impaired vision, GERD, frequent UTI, osteoarthritis, multiple surgeries to right elbow, ulnar nerve transposition. She has a bunion to the left foot. Anxiety, depression, hypothyroidism, and dermatitis, depression, and anxiety. PAST SURGICAL HISTORY: Includes tonsillectomy, arthroscopic surgery to knee, several surgeries to elbow, ulnar nerve repair, and as a child of 6 years old appendectomy. FAMILY HISTORY: Positive for coronary artery disease, breast and lung cancer. SOCIAL HISTORY: Does not smoke. Drinks coffee 2 to 3 cups a day, and no alcohol use. MEDICATIONS: See EMR. REVIEW OF SYSTEMS: HEENT: Negative. NECK: Negative. CHEST: No chest pain, shortness of breath, fast or irregular heart beat. LUNGS: No cough. ABDOMEN: As above. : Negative. EXTREMITIES: No joint pain or swelling with exception of her chronic elbow pain. SKIN: Without rash. NEURO: Intact. PSYCHIATRIC: Mood and affect appropriate. OBJECTIVE: GENERAL: Eileen Webber is a 71-year-old female. VITAL SIGNS: Height is 5 feet 8.11 inches, weight is 150 pounds. TPR is 97.8, 74, 16. Blood pressure 126/77. HEENT: Negative. NECK: Supple. HEART: Regular rate and rhythm. LUNGS: Clear. ABDOMEN: There is tenderness noted in the right upper quadrant, otherwise negative. EXTREMITIES: No peripheral edema. SKIN: Without rash. PSYCHIATRIC: Mood and affect appropriate. NEUROLOGIC: Cranial nerves 2-12 intact. ASSESSMENT: Biliary dyskinesia. PLAN: 1. Schedule and have consent signed for laparoscopic possible open cholecystectomy, general anesthesia. Matthew Peralta MD, case to follow 02/04/2017. The patient is to remain n.p.o. 2. Cefoxitin 2 g IV on-call to OR. 3. IV D5 LR 125 mg per hour. 4. Incentive spirometer in room to use 10 times every hour while awake. May have dose of gabapentin this morning with a sip of water. Remain n.p.o. We will evaluate p.r.n. or in a.m. Justyna Cross PA-C /[id number]
[2017-02-04] MEDS ORDERED: Rocuronium 50 MG/5 ML Vial ONE (09:35)
[2017-02-04] MEDS ORDERED: Succinylcholine 200 MG/10 ML MDV ONE (09:35)
[2017-02-04] MEDS ORDERED: Glycopyrrolate 0.2 MG/ML 5 ML MDV ONE (09:35)
[2017-02-04] MEDS ORDERED: Propofol 200 MG/20 ML SDV ONE (09:35)
[2017-02-04] MEDS ORDERED: Ondansetron 4 MG/2 ML SDV ONE (09:35)
[2017-02-04] MEDS ORDERED: Dexamethasone 4 MG/ML SDV ONE (09:35)
[2017-02-04] MEDS ORDERED: fentaNYL 100 MCG/2 ML SDV ONE ×4 (09:36→16:28)
[2017-02-04] MEDS ORDERED: Bupivacaine 0.5%/EPINEPHrine 1:200,000 50 ML MDV ONE (09:47)
[2017-02-04] MEDS: BETAMETHASONE DIPROPIONATE TOP SCH (10:13)
[2017-02-04] MEDS: Famotidine 20 MG/2 ML SDV IVPUSH SCH ×2 (10:42→21:30)
[2017-02-04] MEDS ORDERED: Neostigmine Methylsulfate 1 MG/ML 5 ML Syringe ONE (11:53)
[2017-02-04] MEDS ORDERED: cefOXitin 2 GM in Sodium Chloride 0.9% 50 ML IV ONE (13:00)
--- NOTE | 2017-02-04 15:22 | PCM.PN ---
- General Info Date of Service: 02/04/17 Functional Status: Reports: Pain Controlled, Ambulating, Urinating - Review of Systems General: Denies: Fever, Chills Pulmonary: Reports: No Symptoms Cardiovascular: Reports: No Symptoms Gastrointestinal: Reports: Abdominal Pain. Denies: Nausea, Vomiting Systems Review Comment:: Ms. Webber has remained stable since yesterday. She is been seen and evaluated by Dr. Yosef Peralta and plan is to precede with laparoscopic cholecystectomy later today. Vital signs have been stable and she has remained afebrile. - Patient Data Vitals - Most Recent: Last Vital Signs Temp 97.9 F 02/04/17 10:33 Pulse 65 02/04/17 10:33 Resp 16 02/04/17 10:33 BP 122/75 02/04/17 10:33 Pulse Ox 100 02/04/17 10:33 Weight - Most Recent: 150 lb 0.005 oz I&O - Last 24 Hours: Intake & Output 02/04/17 02/04/17 02/04/17 06:59 14:59 22:59 Intake Total 914 Output Total 1500 300 Balance -586 -300 Med Orders - Current: Current Medications Hydrocodone Bitart/Acetaminophen ([place] 325-5 Mg) 1 tab PO Q6H PRN PRN Reason: Pain Last Admin: 02/01/17 03:24 Dose: 1 tab Famotidine (Pepcid) 20 mg IVPUSH BID [facility] Last Admin: 02/04/17 10:42 Dose: 20 mg Gabapentin (Neurontin) 300 mg PO DAILY [facility] Last Admin: 02/04/17 08:06 Dose: Not Given Hydromorphone HCl (Dilaudid Physician Non Invasive Cardiologist 15 Mg In Ns 30 Ml) 0 mg IV ASDIRECTED PRN; Protocol PRN Reason: [employer]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 Last Admin: 02/04/17 15:16 Dose: 0.3 mg Dextrose/Lactated Ringer's (Dextrose 5%-Lactated Ringers) 1,000 mls @ 125 mls/ hr IV ASDIRECTED [facility] Last Admin: 02/04/17 07:44 Dose: 125 mls/hr Levothyroxine Sodium (Levothyroxine) 112 mcg PO ACBREAKFAST [facility] Last Admin: 02/04/17 07:39 Dose: Not Given Lorazepam (Ativan) 0.5 mg IVPUSH Q4H PRN PRN Reason: Nausea/Vomiting Last Admin: 01/31/17 15:26 Dose: 0.5 mg Naloxone HCl (Narcan) 0.1 mg IV ASDIRECTED PRN PRN Reason: decreased respiratory rate Betamethasone Dipropionate Ointment*Pt Own Med* 0 each TOP DAILY [facility] Last Admin: 02/04/17 10:13 Dose: Not Given Ondansetron HCl (Zofran) 4 mg IVPUSH Q6H PRN PRN Reason: Nausea/Vomiting Last Admin: 02/04/17 01:13 Dose: 4 mg Discontinued Medications Acetaminophen (Tylenol) 650 mg PO Q4H PRN PRN Reason: Pain (Mild 1-3)/fever Last Admin: 01/31/17 13:55 Dose: 650 mg Bupivacaine HCl/Epinephrine Bitart ([place] 0.5%/Epinephrine 1:200,000) Confirm Administered Dose 50 ml .ROUTE .STK-MED ONE Stop: 02/04/17 09:48 Dexamethasone (Dexamethasone) Confirm Administered Dose 4 mg .ROUTE .STK-MED ONE Stop: 02/04/17 09:36 Fentanyl (Sublimaze) Confirm Administered Dose 100 mcg .ROUTE .STK-MED ONE Stop: 02/04/17 09:37 Fentanyl (Sublimaze) Confirm Administered Dose 100 mcg .ROUTE .STK-MED ONE Stop: 02/04/17 09:37 Fentanyl (Sublimaze) Confirm Administered Dose 100 mcg .ROUTE .STK-MED ONE Stop: 02/04/17 09:37 Glycopyrrolate (Robinul) Confirm Administered Dose 1 mg .ROUTE .STK-MED ONE Stop: 02/04/17 09:36 Hydromorphone HCl (Dilaudid) 0.25 - 0.5 mg IVPUSH Q2H PRN PRN Reason: Pain Sodium Chloride (Normal Saline) 1,000 mls @ 250 mls/hr IV ASDIRECTED [facility] Last Admin: 01/31/17 06:29 Dose: 250 mls/hr Sodium Chloride (Normal Saline) 70 mls @ 3 mls/sec IV ASDIRECTED ONE Stop: 01/31/17 09:18 Last Admin: 01/31/17 09:32 Dose: 3 mls/sec Dextrose/Sodium Chloride (Dextrose 5%-Normal Saline) 1,000 mls @ 125 mls/hr IV ASDIRECTED [facility] Last Admin: 02/01/17 10:55 Dose: 125 mls/hr Dextrose/Sodium Chloride (Dextrose 5%-Normal Saline) 1,000 mls @ 50 mls/hr IV ASDIRECTED [facility] Last Admin: 02/03/17 02:21 Dose: 50 mls/hr Lactated Ringer's (Ringers, Lactated) 1,000 mls @ 125 mls/hr IV ASDIRECTED [facility] Last Admin: 02/04/17 00:01 Dose: 125 mls/hr Cefoxitin Sodium 2 gm/ Sodium (Chloride) 50 mls @ 100 mls/hr IV ONETIME ONE Stop: 02/04/17 13:29 Iopamidol (Isovue-300 (61%)) 100 ml IV . DIRECTED PRN PRN Reason: RADIOLOGY EXAM Stop: 01/31/17 09:18 Last Admin: 01/31/17 09:32 Dose: 100 ml Neostigmine Methylsulfate (Neostigmine) Confirm Administered Dose 5 mg .ROUTE .STK-MED ONE Stop: 02/04/17 11:54 Detamethasone Dipropionate Ointment*Pt Own Med* 0 each TOP DAILY [facility] Last Admin: 02/03/17 21:35 Dose: 1 each Ondansetron HCl (Zofran Odt) 4 mg PO Q6H PRN PRN Reason: Nausea able to take PO Last Admin: 02/02/17 11:49 Dose: 4 mg Ondansetron HCl (Zofran) Confirm Administered Dose 4 mg .ROUTE .STK-MED ONE Stop: 02/04/17 09:36 Propofol (Diprivan 20 Ml) Confirm Administered Dose 200 mg .ROUTE .STK-MED ONE Stop: 02/04/17 09:36 Rocuronium [place] (Zemuron) Confirm Administered Dose 50 mg .ROUTE .STK-MED ONE Stop: 02/04/17 09:36 Sodium Chloride (Saline Flush) 10 ml FLUSH . DIRECTED PRN PRN Reason: [id number] EXAM Stop: 01/31/17 09:18 Last Admin: 01/31/17 09:32 Dose: 10 ml Succinylcholine Chloride (Quelicin) Confirm Administered Dose 200 mg .ROUTE .STK -MED ONE Stop: 02/04/17 09:36 - Exam Quality Assessment: DVT Prophylaxis General: Alert, Oriented, Cooperative, No Acute Distress Lungs: Clear to Auscultation, Normal Respiratory Effort Cardiovascular: Regular Rate, Regular Rhythm, No Murmurs GI/Abdominal Exam: Normal Bowel Sounds, Soft, No Organomegaly, No Distention, Tender. No: Distended, Guarding, Rigid, Rebound Extremities: Normal Inspection, No Pedal Edema Skin: Warm, Dry, Intact - Problem List Review Problem List Initiated/Reviewed/Updated: Yes - My Orders Last 24 Hours: My Active Orders 02/04/17 Breakfast Nothing per Oral After Midnight Diet [DIET] - Plan Plan:: Assessment and plan - Cholecystitis- HIDA scan was abnormal and the cholecystokinin did reproduce her symptoms -Pain control -Nausea control -Saline lock IV, resume IV fluids after midnight -Clear liquid diet, nothing by mouth after midnight -Laparoscopic cholecystectomy today by Dr. Peralta Hyponatremia - suspect hypovolemic hyponatremia with recent diarrhea and poor intake. Level has nearly normalized with IV fluids. -Saline lock IV Acquired hypothyroidism - TSH mildly elevated but free T4 is mildly elevated as well. Probable mild elevation in TSH is related to acute illness. -Continue supplementation -Repeat labs as an outpatient Maintenance issues - - DVT prophylaxis - mechanical - GI prophylaxis - H2 jazlyn - Nutrition - clear liquids Disposition - anticipate discharge home after the hospital stay
[2017-02-04] MEDS ORDERED: Scopolamine 1.5 MG Transdermal Patch ONE (16:21)
[2017-02-04] MEDS: VERIFY SCOP PATCH TOP SCH (17:34)
[2017-02-04] MEDS ORDERED: Loratadine 10 MG Tab.DIS PO ONE (17:45)
[2017-02-04] MEDS: Dextrose 5%-Lactated Ringers 1,000 ML IV SCH (18:17)
[2017-02-05] MEDS ORDERED: diphenhydrAMINE 50 MG/ML SDV IVPUSH PRN (00:28)
[2017-02-05] MEDS ORDERED: diphenhydrAMINE 25 MG Cap PO PRN (00:29)
--- NOTE | 2017-02-05 00:38 | PCM.SN ---
- Free Text/Narrative Note: call from [address] [place] [address], requesting Benadryl for ithy rash. no other concerns a; pruritus rash p; order for Benadryl 25 mg po every 4 to 6 hr prn nausea and vomiting,
[2017-02-05] MEDS: Acetaminophen/HYDROcodone 325-5 MG Tab PO PRN ×2 (03:25→10:16)
[2017-02-05] MEDS: Dextrose 5%-Lactated Ringers 1,000 ML IV SCH (04:20)
--- NOTE | 2017-02-05 09:18 | DISCH ---
ADMISSION DIAGNOSES: Nausea, vomiting, reflux esophagitis, hyponatremia, hypothyroidism, renal insufficiency, dehydration, right upper quadrant abdominal pain, osteoarthritis, nerve pain to right arm, anxiety, and depression. DISCHARGE DIAGNOSES: Biliary dyskinesia, laparoscopic cholecystectomy for biliary dyskinesia, and wedge liver biopsy for sclerotic area in the right lobe of liver adjacent to gallbladder fusion on 02/04/2017. HISTORY: Eileen Webber is a 71-year-old female who presented to the ER on 01/31/2017 for abdominal complaints. After preoperative evaluation and discussion of possible risks and possible complications, she wished to proceed with surgical procedure. HOSPITAL COURSE: Eileen had her surgery on 02/04/2017. She had no operative complications. On postop day #1, she was able to be discharged to home. PHYSICAL EXAMINATION: GENERAL: Eileen Webber is a 71-year-old female. VITAL SIGNS: Height 5 feet 8.11 inches. Weight is 150 pounds. TPR is 98.7, 75, 16, and blood pressure 124/81. HEENT: Negative. NECK: Supple. HEART: Regular rate and rhythm. LUNGS: Clear. ABDOMEN: Incisions look good. Abdominal binder is on. EXTREMITIES: Without peripheral edema. DISPOSITION: Discharged to home. CONDITION: Stable and improving. FOLLOW UP APPOINTMENTS: With Justyna Cross PA-C, on 02/13/2017 at 9 a.m. DISCHARGE MEDICATIONS: Home medications; [place] 5/325 mg 1 to 2 every 6 hours p.r.n. pain, #30; magnesium oxide 400 mg 1 daily for 3 months, 90 were given. She is to resume her home medications; Diprolene AF 0.05% cream, 50 grams topically twice daily, doxepin 10 mg oral at bedtime, fexofenadine 180 mg oral daily, gabapentin 300 mg oral daily, montelukast sodium 10 mg at bedtime, Zantac 150 mg oral daily, and metronidazole 0.75% gel, 40, use as directed. DISCHARGE DIET: Usual diet as tolerated. Drink 8 to 10 glasses of water a day. ACTIVITY: No lifting greater than 10 pounds for [address] after discharge, do not drive while on pain medication. May shower. DISCHARGE INSTRUCTIONS: Notify provider of fever, increased pain, nausea, or vomiting. Keep site clean and dry. Wear abdominal binder for 2 weeks and then as tolerated. Use incentive spirometer 10 times every hour while awake.
[2017-02-05] MEDS: BETAMETHASONE DIPROPIONATE TOP SCH (10:18)
[2017-02-05] MEDS: VERIFY SCOP PATCH TOP SCH (10:19)
[2017-02-05] MEDS: Levothyroxine 112 MCG Tab PO SCH (10:20)
[2017-02-05] MEDS: Gabapentin 300 MG Cap PO SCH (10:21)
[2017-02-05] MEDS: Famotidine 20 MG/2 ML SDV IVPUSH SCH (10:26)
[2017-02-05 10:32] VITALS: BP 105/63
--- NOTE | 2017-02-10 13:01 | OR ---
DATE OF PROCEDURE: 02/04/2017 PREOPERATIVE DIAGNOSIS: Biliary dyskinesia. POSTOPERATIVE DIAGNOSES: 1. Biliary dyskinesia. 2. Sclerotic area over right lobe of liver, at gallbladder bed. OPERATIVE PROCEDURES: Diagnostic laparoscopy with; 1. Laparoscopic cholecystectomy (45304). 2. Resection of the sclerotic area of liver adjacent to the gallbladder bed (85850). ANESTHESIA: General. COMMERCIAL ASSISTANT: Justyna Cross PA-C. INDICATION FOR PROCEDURE: This is a 71-year-old female presenting with abdominal pain over the past 2 to 3 days. Workup eventually led to a HIDA scan which showed below normal ejection fraction and the CCK injection causing quite precise reproduction of her symptoms. Given this, she is to undergo laparoscopic cholecystectomy. Potential risks of the procedure including bleeding, infection, injury to underlying viscera, possible persistent or recurrent symptoms overtime as well as remote possibility of cardiopulmonary, septic, or hemorrhagic complications leading to were discussed, and the patient wishes to proceed. DETAILS OF PROCEDURE: The patient was taken to the operating room and placed in a supine position. After general endotracheal anesthesia was induced, the abdomen was prepped and draped. A transverse epigastric incision was made. The peritoneal cavity was entered under direct vision with an Optiview trocar, inflated to 15 mmHg with CO2. Laparoscope was reinserted. No underlying trocar insertion site injuries were seen. Following this, a 12- mm subumbilical trocar was placed along with a 5-mm right abdominal trocar. At this point, the upper abdomen was examined. The patient had a somewhat peculiar- appearing liver. The gallbladder bed was essentially occupied by a long area of sclerotic scarred-down liver and it appeared that most of the segment of the liver that normally would be occupied by the gallbladder bed had at some point probably become ischemic, photodocumentation shows that configuration. A decision was made at this point to proceed with a cholecystectomy along with excision of a sclerotic area to make sure there is not something going on in terms of any neoplastic changes within it. At this point, the gallbladder was retracted anteriorly and laterally, and the peritoneum over the distal gallbladder neck was divided with Harmonic scalpel and dissection continued down around the gallbladder neck and cystic duct junction. Once that area as well as cystic artery were identified, both structures were clipped 3 times proximally and once distally and divided, and the gallbladder dissected off the gallbladder bed. The gallbladder was then delivered from the field. It was noted to contain a small amount of sludge along with a cholesterolosis appearance of the gallbladder mucosa. The sclerotic area of the liver was then resected by means of 2 firings of the VENKAT param and that specimen then delivered from the field as well. The area of dissection was then inspected. No bleeding or bile leaks were seen. The cystic duct closure appeared to be secure and it was felt that a drain would not be necessary. The trocars were then sequentially removed. The 12 mm sites were closed with 0 Vicryl stitch and the skin with a 4-0 Vicryl skin stitch. Dressing was applied. The patient was taken to the recovery room in a satisfactory condition. Physician delinquent tax collection assistant, Justyna Cross played an essential role in assisting in this case, helping to position the patient, retract structures as needed, as well as suturing and cutting sutures when indicated. Her presence improved patient safety and decreased the operative time. Matthew Peralta MD /[id number]
== END 2017-02-05 13:05 | disposition home or self-care (01) | DRG 418 ==
LOC: JP.ED 05:34 → JP.2SS 09:10 → JP.MS 23:45 → UNDODISIN 02-05 13:05
PROVIDERS: ADMIT Internal Medicine; ATTEND Hospitalist
PROC: 0FT44ZZ Resection of Gallbladder, Percutaneous Endoscopic Approach (ICD-10-PCS; principal; 2017-02-04)
PROC: 0FB04ZX Excision of Liver, Percutaneous Endoscopic Approach, Diagnostic (ICD-10-PCS; 2017-02-04)
DX: K82.8 Other specified diseases of gallbladder (principal); E87.1 Hypo-osmolality and hyponatremia; K76.89 Other specified diseases of liver; L29.9 Pruritus, unspecified; E03.9 Hypothyroidism, unspecified; N18.9 Chronic kidney disease, unspecified; E86.0 Dehydration; F41.8 Other specified anxiety disorders; K21.9 Gastro-esophageal reflux disease without esophagitis; Z88.8 Allergy status to other drugs, medicaments and biological substances; Z79.899 Other long term (current) drug therapy
CPT/HCPCS: 36415; 80053; 81001; 83605; 84439; 84443; 85025; 96360; 96361; 99284; 99285; J7040; 74177; 74177-26; 78227; 78227-26; 80048; 83735; 84100; 84295; 85027; 88304; 88307; 94762; A9270-GY; J0330; J0694; J1100; J1170; J1200; J2060; J2405; J2704; J2710; J3010; J7030; J7042; J7050; J7120; Q9967; S0028

== ENCOUNTER 2017-02-08 04:35 | Emergency (ER) | payer MEDICARE, OTHER ==
[2017-02-08] MEDS ORDERED: HYDROmorphone 0.5 MG/0.5 ML Syringe IVPUSH ONE (05:11)
[2017-02-08] MEDS ORDERED: LORazepam 2 MG/ML MDV IVPUSH ONE (05:11)
[2017-02-08] MEDS ORDERED: Sodium Chloride 0.9% 10 ML Syringe FLUSH PRN (05:11)
--- NOTE | 2017-02-08 05:36 | EDM.PDOC ---
<Sy Li - Last Filed: 02/08/17 06:49> ED HPI GENERAL MEDICAL PROBLEM - General Chief Complaint: Abdominal Pain Stated Complaint: ABDOMINAL PAIN Time Seen by Provider: 02/08/17 05:00 Source of Information: Reports: Patient, Family History Limitations: Reports: No Limitations - History of Present Illness INITIAL COMMENTS - FREE TEXT/NARRATIVE: 71-year-old female who underwent a cholecystectomy 5 days ago, discharged from the hospital 3 days ago developed abdominal pain yesterday, worsened as the day went on and tonight got up to have what she thought was a bowel movement and developed very severe upper abdominal pain, especially in the right upper quadrant. It radiated to her back and was unbearable. No fevers or chills, denied nausea or vomiting. No shortness of breath or pleuritic pain. She arrived very anxious and in severe distress, was unable to lay down or move. Onset: Gradual (Developed over the past 12 hours) Location: Reports: Abdomen Severity: Severe Associated Symptoms: Reports: Loss of Appetite. Denies: Fever/Chills, Headaches , Nausea/Vomiting, Shortness of Breath, Weakness Right Upper Abdomen Pain Score (Numeric/FACES): 8 - Related Data Allergies Allergy/AdvReac Type Severity Reaction Status Date / Time benzocaine Allergy Itching Verified 01/30/17 05:01 tramadol Allergy Hives Verified 01/30/17 05:01 omeprazole AdvReac Nausea Verified 02/04/17 07:38 Home Meds: Home Meds Betamethasone Dipropionate [Diprolene AF 0.05% Crm] 50 gm TP BID 07/16/15 [ History] Doxepin HCl [Doxepin] 10 mg PO BEDTIME 07/16/15 [History] Fexofenadine HCl 180 mg PO DAILY 07/16/15 [History] Levothyroxine Sodium 112 mcg PO DAILY 07/16/15 [History] Montelukast Sodium 10 mg PO BEDTIME 07/16/15 [History] metroNIDAZOLE [metroNIDAZOLE 0.75% Gel] 45 gm TOP BID 07/16/15 [History] Ranitidine [Zantac] 150 mg PO DAILY 01/31/17 [History] Hydrocodone/Acetaminophen [Hydrocodon-Acetaminophen 5-325] 1 tab PO Q6HR PRN # 30 tablet 02/05/17 [Rx] Magnesium Oxide [Magnesium] 400 mg PO DAILY #90 capsule 02/05/17 [Rx] Past Medical History HEENT History: Reports: Impaired Vision Cardiovascular History: Reports: None Respiratory History: Reports: None Gastrointestinal History: Reports: GERD Genitourinary History: Reports: UTI, Recurrent 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 Right ulnar nerve transposition. Bunion removal to left foot. Neurological History: Reports: Other (See Below) Other Neuro History: "Nerve pain to right arm". Psychiatric History: Reports: Anxiety, Depression Endocrine/Metabolic History: Reports: Hypothyroidism Hematologic History: Reports: None Immunologic History: Reports: None Oncologic (Cancer) History: Reports: None Dermatologic History: Reports: Other (See Below) Other Dermatologic History: DERMATITIS - Infectious Disease History Infectious Disease History: Reports: Chicken Pox, Measles - Past Surgical History Head Surgeries/Procedures: Reports: None HEENT Surgical History: Reports: Tonsillectomy Cardiovascular Surgical History: Reports: None Respiratory Surgical History: Reports: None GI Surgical History: Reports: Appendectomy, Cholecystectomy, Colonoscopy Other GI Surgeries/Procedures: erick 02/04/17 Musculoskeletal Surgical History: Reports: Arthroscopic Knee, Other (See Below) Other Musculoskeletal Surgeries/Procedures:: ELBOW ULNAR NERVE REPAIR Oncologic Surgical History: Reports: None Social & Family History - Family History Family Medical History: Noncontributory Cardiac: Reports: CAD Oncologic: Reports: Breast, Lung - Tobacco Use Smoking Status *Q: Never Smoker Used Tobacco, but Quit: Yes Month Tobacco Last Used: 30 years ago Second Hand Smoke Exposure: No - Caffeine Use Caffeine Use: Reports: Coffee - Recreational Drug Use Recreational Drug Use: No ED ROS GENERAL - Review of Systems Review Of Systems: See Below Constitutional: Denies: Fever, Chills Respiratory: Denies: Shortness of Breath, Pleuritic Chest Pain Cardiovascular: Denies: Chest Pain GI/Abdominal: Reports: Abdominal Pain. Denies: Vomiting : Reports: No Symptoms Skin: Reports: No Symptoms Neurological: Reports: No Symptoms Psychiatric: Reports: Anxiety ED EXAM, GI/ABD - Physical Exam Exam: See Below Exam Limited By: No Limitations General Appearance: Alert, Anxious, Moderate Distress Eyes: Bilateral: Normal Appearance (No jaundice) Respiratory/Chest: No Respiratory Distress, Lungs Clear Cardiovascular: Regular Rate, Rhythm GI/Abdominal Exam: Normal Bowel Sounds, No Distention, Rigid, Tender, Other ( Even slight palpation across the upper abdomen caused her intense pain, surgical incisions look excellent) Neurological: Alert Psychiatric: Anxious Skin Exam: Warm, Dry Course - Vital Signs Last Recorded V/S: Last Vital Signs Temp 98.8 F 02/08/17 04:46 Pulse 87 02/08/17 08:43 Resp 16 02/08/17 08:43 BP 141/84 H 02/08/17 08:43 Pulse Ox 98 02/08/17 08:43 - Orders/Labs/Meds Orders: Active Orders 24 hr Category Date Time Status Enema [RC] ASDIRECTED Care 02/08/17 07:26 Active Abdomen Pelvis wo Cont [CT] Stat Exams 02/08/17 06:37 Taken Sodium Chloride 0.9% [Saline Flush] Med 02/08/17 05:11 Active 10 ml FLUSH ASDIRECTED PRN Saline Lock Insert [OM.PC] Routine Oth 02/08/17 05:11 Ordered Medication Orders Sodium Chloride (Saline Flush) 10 ml FLUSH ASDIRECTED PRN PRN Reason: Keep Vein Open Last Admin: 02/08/17 05:35 Dose: 10 ml Labs: Laboratory Tests 02/08/17 02/08/17 02/08/17 Range/Units 05:30 05:30 06:12 WBC 8.2 (4.5-11.0) K/uL RBC 3.73 (3.30-5.50) M/uL Hgb 11.5 L (12.0-15.0) g/dL Hct 34.0 L (36.0-48.0) % MCV 91 (80-98) fL MCH 31 (27-31) pg MCHC 34 (32-36) % Plt Count 225 (150-400) K/uL Neut % (Auto) 70 H (36-66) % Lymph % (Auto) 15 L (24-44) % [place] % (Auto) 10 H (2-6) % Eos % (Auto) 6 H (2-4) % Baso % (Auto) 0 (0-1) % Sodium 136 L (140-148) mmol/L Potassium 3.7 (3.6-5.2) mmol/L Chloride 100 (100-108) mmol/L Carbon Dioxide 30 (21-32) mmol/L Anion Gap 9.7 (5.0-14.0) mmol/L BUN 7 D (7-18) mg/dL Creatinine 1.0 (0.6-1.0) mg/dL Est Cr Clr Drug Dosing 53.56 mL/min Estimated GFR (MDRD) 55 L (>60) Glucose 87 (74-106) mg/dL Calcium 8.8 (8.5-10.1) mg/dL Total Bilirubin 0.5 (0.2-1.0) mg/dL AST 23 (15-37) U/L ALT 27 (12-78) U/L Alkaline Phosphatase 79 (46-116) U/L Total Protein 7.4 (6.4-8.2) g/dL Albumin 3.7 (3.4-5.0) g/dL Globulin 3.7 H (2.3-3.5) g/dL Albumin/Globulin Ratio 1.0 L (1.2-2.2) Amylase 39 (25-115) U/L Lipase 100 (73-393) U/L Urine Color Yellow Urine Appearance Clear Urine pH 8.0 (4.5-8.0) Ur Specific [place] 1.015 (1.008-1.030) Urine Protein Negative (NEGATIVE) mg/dL Urine Glucose (UA) Normal (NEGATIVE) mg/dL Urine Ketones 15 H (NEGATIVE) mg/dL Urine Occult Blood Negative (NEGATIVE) Urine Nitrite Negative (NEGATIVE) Urine Bilirubin Negative (NEGATIVE) Urine Urobilinogen Normal (NORMAL) mg/dL Ur Leukocyte Esterase Negative (NEGATIVE) Urine RBC 0-5 (0-5) Urine WBC 0-5 (0-5) Ur Epithelial Cells Few Amorphous Sediment Not seen Urine Bacteria Few Urine Mucus Not seen Meds: Medications Generic Name Dose Route Start Last Admin Trade Name Freq PRN Reason Stop Dose Admin Sodium Chloride 10 ml 02/08/17 05:11 02/08/17 05:35 Saline Flush FLUSH 10 ml ASDIRECTED PRN Administration Keep Vein Open Discontinued Medications Generic Name Dose Route Start Last Admin Trade Name Freq PRN Reason Stop Dose Admin Hydromorphone HCl 0.5 mg 02/08/17 05:11 02/08/17 05:33 Dilaudid IVPUSH 02/08/17 05:12 0.5 mg ONETIME ONE Administration Lorazepam 1 mg 02/08/17 05:11 02/08/17 05:36 Ativan IVPUSH 02/08/17 05:12 1 mg ONETIME ONE Administration - Re-Assessments/Exams Free Text/Narrative Re-Assessment/Exam: 02/08/17 05:35 A saline lock was placed, the patient was given 0.5 mg of Dilaudid and 1 mg of Ativan IV. CBC, CMP, amylase and lipase were obtained with his attentive likely needing to pursue a CT scan of the abdomen. 02/08/17 06:06 Labs are all very reassuring. After the IV medications the patient calmed down markedly however was still complaining of pain with palpation. Her symptoms and presentation was discussed with Dr. Peralta, and a CT of the abdomen and pelvis without contrast was requested. This was obtained. 02/08/17 06:49 Care turned over to Dr. Moyer pending CT scan results. Departure - Departure Disposition: Home, Self-Care 01 Clinical Impression: Functional constipation - Discharge Information Forms: ED Department Discharge Additional Instructions: Try the colonoscopy prep with MiraLAX and Gatorade and continue the MiraLAX until loose stools, please keep your follow-up appointment with general surgery - My Orders Last 24 Hours: My Active Orders 02/08/17 07:26 Enema [RC] ASDIRECTED - Assessment/Plan Last 24 Hours: My Active Orders 02/08/17 07:26 Enema [RC] ASDIRECTED <Remy Moyer - Last Filed: 02/08/17 09:50> Departure - Departure Time of Disposition: 09:47 Condition: Good - Assessment/Plan Plan: Assessment Acuity = acute Site and laterality = functional constipation complicated patient with recent cholecystectomy postop day 4 Etiology = probably secondary to slow transit time and recent surgery Manifestations = abdominal pain Location of injury = Home Lab values = hemoglobin low 11.5 consistent normochromic anemia, sodium low at 136 consistent hyponatremia urinalysis is unremarkable CT scan shows large amount of stool in the colon ines ascending and transverse Plan Did discuss case with Dr. Peralta general surgery recommended a enema while in the ED this was unsuccessful were to proceed to the colonoscopy prep she would like to try this at home and will have her return with any worsening of symptoms otherwise keep her regular follow-up appointment with general surgery Patient was in agreement with the plan all questions were answered, they were instructed to return to the emergency department or call for worsening symptoms. This note was dictated using [email or web address] voice recognition software please call with any questions.
[2017-02-08 10:08] VITALS: BP 155/73
== END 2017-02-08 10:24 | disposition home or self-care (01) ==
LOC: JP.ED 04:35
DX: K59.04 Chronic idiopathic constipation (principal); K21.9 Gastro-esophageal reflux disease without esophagitis; M19.90 Unspecified osteoarthritis, unspecified site; E03.9 Hypothyroidism, unspecified; Z98.890 Other specified postprocedural states; Z79.899 Other long term (current) drug therapy; Z90.49 Acquired absence of other specified parts of digestive tract; Z87.440 Personal history of urinary (tract) infections; Z88.5 Allergy status to narcotic agent; Z88.8 Allergy status to other drugs, medicaments and biological substances
CPT/HCPCS: 36415; 74176; 80053; 81001; 82150; 83690; 85025; 96374; 96375; 99284; J1170; J2060; J7050; 99283

== ENCOUNTER 2017-02-25 08:26 | Inpatient (IN) | payer MEDICARE, OTHER ==
[2017-02-25] MEDS ORDERED: Lactated Ringers 1,000 ML IV SCH (08:30)
[2017-02-25] MEDS ORDERED: Cyanocobalamin (Vitamin B12) 1,000 MCG/ML SDV IM ONE (09:00)
[2017-02-25] MEDS ORDERED: Midazolam 1 MG/ML 2 ML SDV ONE (09:20)
[2017-02-25] MEDS ORDERED: fentaNYL 100 MCG/2 ML SDV ONE (09:20)
[2017-02-25] MEDS ORDERED: Propofol 200 MG/20 ML SDV ONE (09:20)
[2017-02-25] MEDS ORDERED: MVI, Adult with Vitamin K 10 ML, Thiamine 200 MG, Chromium/Copper/Mang/Selen/Zn 1 ML in... IV ONE ×4 (09:30)
[2017-02-25] MEDS ORDERED: Glycopyrrolate 0.2 MG/ML 2 ML SDV IVPUSH ONE (09:30)
[2017-02-25] MEDS ORDERED: Pantoprazole 40 MG Vial IVPUSH ONE (11:05)
[2017-02-25] MEDS ORDERED: Ondansetron 4 MG/2 ML SDV IVPUSH PRN (11:53)
--- NOTE | 2017-02-25 15:00 | PCM.CONS ---
H&P History of Present Illness - General Date of Service: 02/25/17 Admit Problem/Dx: Admission Diagnosis/Problem Admission Diagnosis/Problem Nausea Source of Information: Patient, Provider History Limitations: Reports: No Limitations - History of Present Illness Initial Comments - Free Text/Narative: Eileen was admitted for management of persistent nausea, weakness and dehydration. I was asked to see her by Dr. Peralta regarding hyponatremia, hyperkalemia and acute kidney injury. She reports that she has not done well over the past 2-3 months but especially the last month. She has lost 15 pounds and has no appetite. She has a fair amount of nausea but has not had much in the way of vomiting. She reports profound weakness and even feeding her dog in the morning is exhausting. She has been sleeping more than usual. She does not report any specific pain necessarily. She is not aware of chest pain or abdominal pain. She does feel short of breath with exertion and has a mild dry cough. She does not report myalgias or arthralgias outside of the usual. She has noticed some blemishes on her face which is unusual for her but no other specific rash. She has had loose stools ever since her cholecystectomy. No complaints of dysuria or urinary frequency. She's not aware of any fevers at home but does feel cold all the time. Laboratory testing at the time of admission revealed a sodium of 124 and a potassium of 6. Her creatinine was elevated at 1.5 with a baseline of 1. She was very dehydrated. - Related Data Allergies/Adverse Reactions: Allergies Allergy/AdvReac Type Severity Reaction Status Date / Time benzocaine Allergy Itching Verified 02/25/17 08:44 tramadol Allergy Hives Verified 02/25/17 08:44 omeprazole AdvReac Nausea Verified 02/25/17 08:44 Home Medications: Home Meds Betamethasone Dipropionate [Diprolene AF 0.05% Crm] 50 gm TP BID 07/16/15 [ History] Fexofenadine HCl 180 mg PO DAILY 07/16/15 [History] Levothyroxine Sodium 112 mcg PO DAILY 07/16/15 [History] metroNIDAZOLE [metroNIDAZOLE 0.75% Gel] 45 gm TOP BID 07/16/15 [History] Ranitidine [Zantac] 150 mg PO DAILY 01/31/17 [History] Magnesium Oxide [Magnesium] 400 mg PO DAILY #90 capsule 02/05/17 [Rx] Triamcinolone Acetonide [IJD: Triamcinolone Acetonide 0.1% Crm] 1 applic TOP TID 02/25/17 [History] Past Medical History HEENT History: Reports: Impaired Vision Cardiovascular History: Reports: None Respiratory History: Reports: None Gastrointestinal History: Reports: Chronic Diarrhea, GERD Genitourinary History: Reports: UTI, Recurrent [employer] History: Reports: Musculoskeletal History: Reports: Osteoarthritis Other Musculoskeletal History: multiple surgeries to right elbow. Right ulnar nerve transposition. Bunion removal to left foot. Neurological History: Reports: Other (See Below) Other Neuro History: "Nerve pain to right arm". Psychiatric History: Reports: Anxiety, Depression Endocrine/Metabolic History: Reports: Hypothyroidism Hematologic History: Reports: Anesthesia Reaction Immunologic History: Reports: None Oncologic (Cancer) History: Reports: None Dermatologic History: Reports: Other (See Below) Other Dermatologic History: DERMATITIS - Infectious Disease History Infectious Disease History: Reports: Chicken Pox, Herpes, Measles - Past Surgical History Head Surgeries/Procedures: Reports: None HEENT Surgical History: Reports: Tonsillectomy Cardiovascular Surgical History: Reports: None Respiratory Surgical History: Reports: None GI Surgical History: Reports: Appendectomy, Cholecystectomy, Colonoscopy Other GI Surgeries/Procedures: erick 02/04/17 Female Surgical History: Reports: None Endocrine Surgical History: Reports: None Neurological Surgical History: Reports: None Musculoskeletal Surgical History: Reports: Arthroscopic Knee, Nerve Relocation, Other (See Below) Other Musculoskeletal Surgeries/Procedures:: ELBOW ULNAR NERVE REPAIR Oncologic Surgical History: Reports: None Dermatological Surgical History: Reports: None Social & Family History - Family History Family Medical History: Noncontributory Cardiac: Reports: CAD Oncologic: Reports: Breast, Lung - Tobacco Use Smoking Status *Q: Never Smoker Used Tobacco, but Quit: Yes Month Tobacco Last Used: 30 years ago Second Hand Smoke Exposure: No - Caffeine Use Caffeine Use: Reports: Coffee - Alcohol Use Alcohol Use History: No - Recreational Drug Use Recreational Drug Use: No H&P Review of Systems - Review of Systems: Review Of Systems: See Below Free Text/Narrative: A complete 12 point review of systems was obtained. Pertinent positives and negatives are noted in the history of present illness. All other systems were reviewed and were negative except as noted. Exam - Exam Exam: See Below - Vital Signs Vital Signs: Last Vital Signs Temp 36.3 C 02/25/17 13:40 Pulse 75 02/25/17 13:40 Resp 16 02/25/17 13:40 BP 138/75 02/25/17 13:40 Pulse Ox 96 02/25/17 13:40 Weight: 65.487 kg - Exam Quality Assessment: No: Supplemental Oxygen General: Alert, Oriented, Cooperative. No: Mild Distress HEENT: Conjunctiva Clear, Pupils Equal. No: Mucosa Moist & [place] (dry), Scleral Icterus Neck: Supple, Trachea Midline. No: Lymphadenopathy, JVD, Thyromegaly Lungs: Clear to Auscultation, Normal Respiratory Effort Cardiovascular: Regular Rate, Regular Rhythm, Normal S1, Normal S2. No: Systolic Murmur GI/Abdominal Exam: Normal Bowel Sounds, Soft, No Distention, Tender (mild diffuse tenderness) Back Exam: Normal Inspection, Full Range of Motion. No: CVA Tenderness (R), CVA Tenderness (L) Extremities: Normal Inspection, Normal Range of Motion, No Pedal Edema. No: Increased Warmth Skin: Warm, Dry, Intact. No: Rash, Ecchymosis Neuro Extensive - Mental Status: Alert, Oriented x3, Nl Response to Commands Neuro Extensive - Motor, Sensory, Reflexes: CN II-XII Intact. No: Dysarthria, Abnormal Motor, Tremor Psychiatric: Alert, Normal Affect - Patient Data Lab Results Last 24 hrs: Laboratory Results - last 24 hr 02/25/17 02/25/17 02/25/17 Range/Units 08:56 08:56 12:52 WBC 7.1 (4.5-11.0) K/uL RBC 5.11 (3.30-5.50) M/uL Hgb 15.2 H D (12.0-15.0) g/dL Hct 43.9 (36.0-48.0) % MCV 86 (80-98) fL MCH 30 (27-31) pg MCHC 35 (32-36) % Plt Count 427 H (150-400) K/uL Sodium 124 L (140-148) mmol/L Potassium 6.0 H (3.6-5.2) mmol/L Chloride 91 L (100-108) mmol/L Carbon Dioxide 18 L (21-32) mmol/L Anion Gap 21.0 H (5.0-14.0) mmol/L BUN 25 H D (7-18) mg/dL Creatinine 1.5 H (0.6-1.0) mg/dL Est Cr Clr Drug Dosing 35.71 mL/min Estimated GFR (MDRD) 34 L (>60) Glucose 100 (74-106) mg/dL Calcium 10.3 H D (8.5-10.1) mg/dL Phosphorus 4.1 (2.5-4.9) mg/dL Magnesium 2.0 D (1.8-2.4) mg/dL NT-Pro-B Natriuret Pep (5-125) pg/mL TSH, Ultra Sensitive 1.199 (0.358-3.740) uIU/mL 02/25/17 Range/Units 12:52 WBC (4.5-11.0) K/uL RBC (3.30-5.50) M/uL Hgb (12.0-15.0) g/dL Hct (36.0-48.0) % MCV (80-98) fL MCH (27-31) pg MCHC (32-36) % Plt Count (150-400) K/uL Sodium (140-148) mmol/L Potassium (3.6-5.2) mmol/L Chloride (100-108) mmol/L Carbon Dioxide (21-32) mmol/L Anion Gap (5.0-14.0) mmol/L BUN (7-18) mg/dL Creatinine (0.6-1.0) mg/dL Est Cr Clr Drug Dosing mL/min Estimated GFR (MDRD) (>60) Glucose (74-106) mg/dL Calcium (8.5-10.1) mg/dL Phosphorus (2.5-4.9) mg/dL Magnesium (1.8-2.4) mg/dL NT-Pro-B Natriuret Pep 74 (5-125) pg/mL TSH, Ultra Sensitive (0.358-3.740) uIU/mL Result Diagrams: 02/25/17 08:56 02/25/17 08:56 Imaging Impressions Last 24 hrs: chest x-ray - images personally reviewed - lungs are clear with no evidence for mass, infiltrate, lymphadenopathy or effusion. Her heart size is normal. Consult PN Assessment/Plan POD#: 0 Procedures: Procedures ASSAY OF AMYLASE (02/08/17) ASSAY OF FREE THYROXINE (01/31/17) ASSAY OF LACTIC ACID (01/31/17) ASSAY OF LIPASE (02/08/17) ASSAY OF MAGNESIUM (01/31/17) ASSAY OF PHOSPHORUS (01/31/17) ASSAY OF SERUM SODIUM (01/31/17) ASSAY OF TROPONIN QUANT (01/27/17) ASSAY THYROID STIM HORMONE (01/31/17) BONE IMAGING 3 PHASE (11/15/15) C-REACTIVE PROTEIN (01/27/17) CHEST X-RAY 2VW FRONTAL&LATL (01/27/17) COMP SCREEN MAMMOGRAM ADD-ON (05/24/16) COMPLETE CBC AUTOMATED (01/31/17) COMPLETE CBC W/AUTO DIFF WBC (02/08/17) COMPREHEN METABOLIC PANEL (02/08/17) CREATINE MB FRACTION (01/27/17) CT ABD & PELV W/CONTRAST (01/31/17) CT ABD & PELVIS W/O CONTRAST (02/08/17) CULTURE SCREEN ONLY (01/27/17) ECHO EXAM OF ABDOMEN (01/27/17) ELECTRIC CURRENT THERAPY (01/18/16) ELECTROCARDIOGRAM TRACING (01/27/17) EMERGENCY DEPT VISIT (02/08/17) EMERGENCY DEPT VISIT (01/31/17) EMERGENCY DEPT VISIT (01/30/17) EMERGENCY DEPT VISIT (01/27/17) EMERGENCY DEPT VISIT (07/16/15) HEPATOBIL SYST IMAGE W/DRUG (01/31/17) HYDRATE IV INFUSION ADD-ON (01/31/17) HYDRATION IV INFUSION INIT (01/31/17) MANUAL THERAPY 1/> REGIONS (05/24/16) MEASURE BLOOD OXYGEN LEVEL (01/31/17) METABOLIC PANEL TOTAL CA (01/31/17) ORTHOTIC MGMT AND TRAINING (12/22/15) OT EVALUATION (05/24/16) RBC SED RATE NONAUTOMATED (01/27/17) ROUTINE VENIPUNCTURE (02/08/17) THER/PROPH/DIAG INJ IV PUSH (02/08/17) THER/PROPH/DIAG INJ SC/IM (07/16/15) THERAPEUTIC ACTIVITIES (12/22/15) THERAPEUTIC EXERCISES (01/18/16) TISSUE EXAM BY PATHOLOGIST (01/31/17) TISSUE EXAM BY PATHOLOGIST (01/31/17) TX/PRO/DX INJ NEW DRUG ADDON (02/08/17) ULTRASOUND THERAPY (05/24/16) URINALYSIS AUTO W/SCOPE (02/08/17) Problem List Initiated/Reviewed/Updated: Yes My Orders Last 24 Hours: My Active Orders 02/25/17 14:52 CXR [Chest 2V] [CR] Routine UA W/MICROSCOPIC [URIN] Routine 02/26/17 05:00 ALFREDO [REF] Routine LUCI SCREEN,REFLEXIVE [REF] Routine ANCA, ATYPICAL (REFLEXIVE) [REF] Routine C3 [REF] Routine C4 [REF] Routine PROTEIN ELECTROPHORESIS,SERUM [REF] Routine SEDIMENTATION RATE MANUAL [HEME] Routine SJOGRENS ANTIBODIES [REF] Routine T4 FREE [CHEM] Routine Plan: ASSESSMENT AND PLAN Generalized weakness with persistent nausea and weight loss - etiology not entirely clear at this point. Her vital signs are all stable and examination is essentially benign. Her thyroid testing is normal. She does have electrolyte abnormalities as discussed below. There is no evidence for malignancy in her abdomen. Chest x-ray did not show evidence for malignancy. She has quit taking all of the potential culprit medications. -Workup for autoimmune disease including LUCI, Sjogren's antibodies, ANCA, sarcoidosis and C3/C4 levels -Repeat sedimentation rate in the morning Acute kidney injury with hyponatremia and hyperkalemia - she has had several episodes of this over the past month. Previously thought to be secondary to medications but offending agents have been stopped. Autoimmune condition such as lupus or vasculitis or possibly sarcoidosis could be considered. I do not see any evidence for malignancy or infection at this time. Thyroid is normal. -Workup as above -Hydration -Repeat labs in the morning Recent cholecystectomy - no evidence for complication at this time. She does have some diarrhea and if it persists cholestyramine could be considered. Thank you for the interesting consultation. I will continue to follow along with Eileen's care during the hospital stay. Xu Jung M.D. Requesting Provider: Dr Peralta Date Consult Requested: 02/25/17 Reason for Consult: KIERA, hyperkalemia Patient History Reviewed: Yes Admission H&P Reviewed: No (not available) Notified Requestor: No Time Spent (in minutes): 60
[2017-02-25] MEDS: Aluminum Hydroxide/Magnesium Hydroxide/Simethicone Susp 30 ML Cup PO SCH ×2 (16:13→21:54)
[2017-02-25] MEDS: Montelukast 10 MG Tab PO SCH ×2 (20:43→20:45)
[2017-02-25] MEDS: Doxepin 10 MG Cap PO SCH ×2 (20:43→21:36)
[2017-02-25] MEDS: Dextrose 5%-Lactated Ringers 1,000 ML IV SCH (21:54)
[2017-02-25] MEDS: Pantoprazole 40 MG Vial IV SCH (21:54)
[2017-02-26] MEDS: Aluminum Hydroxide/Magnesium Hydroxide/Simethicone Susp 30 ML Cup PO SCH ×4 (05:22→22:25)
[2017-02-26] MEDS: Dextrose 5%-Lactated Ringers 1,000 ML IV SCH ×2 (06:00→16:03)
[2017-02-26] MEDS ORDERED: Levothyroxine 112 MCG Tab PO SCH (07:30)
[2017-02-26] MEDS ORDERED: Dextrose 5%-Lactated Ringers 1,000 ML IV SCH (08:00)
--- NOTE | 2017-02-26 09:00 | CR ---
Heart size within normal limits. Pulmonary vasculature within normal limits. No focal consolidation. Kyphosis.
[2017-02-26] MEDS: Magnesium Sulfate/Water 2 GM in Premix Bag 1 BAG IV SCH ×3 (10:08→22:25)
[2017-02-26] MEDS: Pantoprazole 40 MG Vial IV SCH ×2 (10:08→22:25)
--- NOTE | 2017-02-26 15:29 | PCM.CONSN ---
- General Info Date of Service: 02/26/17 Functional Status: Reports: Pain Controlled, Tolerating Diet - Review of Systems General: Reports: Weakness Gastrointestinal: Reports: Diarrhea Skin: Reports: Rash Systems Review Comment:: No acute events overnight but she did have some diarrhea. Vital signs have been stable. She has not had any fevers. Sodium and potassium levels have both improved. She is tolerating her diet. She continues to feel very tired. The macular rash on her face seems worse today. - Patient Data Vitals - Most Recent: Last Vital Signs Temp 36.1 C 02/26/17 15:21 Pulse 76 02/26/17 15:21 Resp 16 02/26/17 15:21 BP 110/64 02/26/17 15:21 Pulse Ox 99 02/26/17 15:21 Weight - Most Recent: 65.487 kg I&O - Last 24 Hours: Intake & Output 02/26/17 02/26/17 02/26/17 06:59 14:59 22:59 Intake Total 1892 650 Output Total 475 300 Balance 1417 350 Lab Results Last 24 Hours: Laboratory Results - last 24 hr 02/25/17 02/26/17 02/26/17 Range/Units 15:04 04:20 04:20 WBC 6.0 (4.5-11.0) K/uL RBC 3.96 (3.30-5.50) M/uL Hgb 11.8 L D (12.0-15.0) g/dL Hct 34.7 L (36.0-48.0) % MCV 88 (80-98) fL MCH 30 (27-31) pg MCHC 34 (32-36) % Plt Count 298 (150-400) K/uL ESR (0-25) mm/hr Sodium 131 L (140-148) mmol/L Potassium 4.9 (3.6-5.2) mmol/L Chloride 101 (100-108) mmol/L Carbon Dioxide 22 (21-32) mmol/L Anion Gap 12.9 (5.0-14.0) mmol/L BUN 14 (7-18) mg/dL Creatinine 1.0 (0.6-1.0) mg/dL Est Cr Clr Drug Dosing 53.56 mL/min Estimated GFR (MDRD) 55 L (>60) Glucose 105 (74-106) mg/dL Calcium 9.0 (8.5-10.1) mg/dL Phosphorus 3.6 (2.5-4.9) mg/dL Magnesium 1.6 L (1.8-2.4) mg/dL Total Bilirubin 0.5 (0.2-1.0) mg/dL AST 19 (15-37) U/L ALT 25 (12-78) U/L Alkaline Phosphatase 74 (46-116) U/L Total Protein 6.5 (6.4-8.2) g/dL Albumin 3.4 (3.4-5.0) g/dL Globulin 3.1 (2.3-3.5) g/dL Albumin/Globulin Ratio 1.1 L (1.2-2.2) Free T4 (0.76-1.46) ng/dL Urine Color Yellow Urine Appearance Clear Urine pH 5.0 (4.5-8.0) Ur Specific [place] 1.010 (1.008-1.030) Urine Protein Negative (NEGATIVE) mg/dL Urine Glucose (UA) Normal (NEGATIVE) mg/dL Urine Ketones 15 H (NEGATIVE) mg/dL Urine Occult Blood Negative (NEGATIVE) Urine Nitrite Negative (NEGATIVE) Urine Bilirubin Negative (NEGATIVE) Urine Urobilinogen Normal (NORMAL) mg/dL Ur Leukocyte Esterase Negative (NEGATIVE) Urine RBC 0-5 (0-5) Urine WBC 0-5 (0-5) Ur Epithelial Cells Few Amorphous Sediment Not seen Urine Bacteria Not seen Urine Mucus Not seen 02/26/17 02/26/17 Range/Units 04:20 04:20 WBC (4.5-11.0) K/uL RBC (3.30-5.50) M/uL Hgb (12.0-15.0) g/dL Hct (36.0-48.0) % MCV (80-98) fL MCH (27-31) pg MCHC (32-36) % Plt Count (150-400) K/uL ESR 14 (0-25) mm/hr Sodium (140-148) mmol/L Potassium (3.6-5.2) mmol/L Chloride (100-108) mmol/L Carbon Dioxide (21-32) mmol/L Anion Gap (5.0-14.0) mmol/L BUN (7-18) mg/dL Creatinine (0.6-1.0) mg/dL Est Cr Clr Drug Dosing mL/min Estimated GFR (MDRD) (>60) Glucose (74-106) mg/dL Calcium (8.5-10.1) mg/dL Phosphorus (2.5-4.9) mg/dL Magnesium (1.8-2.4) mg/dL Total Bilirubin (0.2-1.0) mg/dL AST (15-37) U/L ALT (12-78) U/L Alkaline Phosphatase (46-116) U/L Total Protein (6.4-8.2) g/dL Albumin (3.4-5.0) g/dL Globulin (2.3-3.5) g/dL Albumin/Globulin Ratio (1.2-2.2) Free T4 1.66 H (0.76-1.46) ng/dL Urine Color Urine Appearance Urine pH (4.5-8.0) Ur Specific [place] (1.008-1.030) Urine Protein (NEGATIVE) mg/dL Urine Glucose (UA) (NEGATIVE) mg/dL Urine Ketones (NEGATIVE) mg/dL Urine Occult Blood (NEGATIVE) Urine Nitrite (NEGATIVE) Urine Bilirubin (NEGATIVE) Urine Urobilinogen (NORMAL) mg/dL Ur Leukocyte Esterase (NEGATIVE) Urine RBC (0-5) Urine WBC (0-5) Ur Epithelial Cells Amorphous Sediment Urine Bacteria Urine Mucus Kenneth Results Last 24 Hours: Microbiology 02/25/17 10:50 CLOtest - Final Stomach NEGATIVE CLOTEST Med Orders - Current: Current Medications Al Hydroxide/Mg Hydroxide (Mag-Al Plus) 30 ml PO QID [facility] Last Admin: 02/26/17 10:08 Dose: 30 ml Doxepin HCl (Sinequan) 10 mg PO BEDTIME [facility] Last Admin: 02/25/17 21:36 Dose: Not Given Magnesium Sulfate 2 gm/ Premix 50 mls @ 25 mls/hr IV Q6H [facility] Stop: 02/28/17 05:59 Last Admin: 02/26/17 10:08 Dose: 25 mls/hr Dextrose/Lactated Ringer's (Dextrose 5%-Lactated Ringers) 1,000 mls @ 100 mls/ hr IV ASDIRECTED [facility] Levothyroxine Sodium (Levothyroxine) 100 mcg PO DAILY@0730 [facility] Metronidazole (Metronidazole 0.75% Gel) 0 gm TOP BID [facility] Montelukast Sodium (Singulair) 10 mg PO BEDTIME [facility] Last Admin: 02/25/17 20:45 Dose: Not Given Ondansetron HCl (Zofran) 4 mg IVPUSH Q4H PRN PRN Reason: Nausea Pantoprazole Sodium (Protonix Iv) 40 mg IV Q12H [facility] Last Admin: 02/26/17 10:08 Dose: 40 mg Discontinued Medications Cyanocobalamin (Vitamin B12) 1,000 mcg IM ONETIME ONE Stop: 02/25/17 09:01 Last Admin: 02/25/17 09:20 Dose: 1,000 mcg Fentanyl (Sublimaze) Confirm Administered Dose 100 mcg .ROUTE .STK-MED ONE Stop: 02/25/17 09:21 Glycopyrrolate (Glycopyrrolate) 0.4 mg IVPUSH ONETIME ONE Stop: 02/25/17 09:31 Last Admin: 02/25/17 10:35 Dose: 0.4 mg Lactated Ringer's (Ringers, Lactated) 1,000 mls @ [facility] Stop: 02/26/17 08:31 Last Admin: 02/25/17 09:24 Dose: 999 mls/hr Multivitamins/Minerals 10 ml/Thiamine HCl 200 mg/ Chromium/Copper/Manganese/ Seleni/Zn 1 ml/ Lactated Ringer's 1,013 mls @ 500 mls/hr IV ASDIRECT ONE Stop: 02/25/17 11:31 Last Admin: 02/25/17 10:34 Dose: 500 mls/hr Dextrose/Lactated Ringer's (Dextrose 5%-Lactated Ringers) 1,000 mls [facility] 125 [facility] Admin: 02/26/17 06:00 Dose: 125 mls/hr Dextrose/Lactated Ringer's (Dextrose 5%-Lactated Ringers) 1,000 mls @ 100 mls/ hr IV ASDIRECTED [facility] Levothyroxine Sodium (Levothyroxine) 112 mcg PO DAILY@0730 [facility] Last Admin: 02/26/17 08:05 Dose: 112 mcg Midazolam HCl (Versed 1 Mg/Ml) Confirm Administered Dose 2 mg .ROUTE .STK-MED ONE Stop: 02/25/17 09:21 Pantoprazole Sodium (Protonix Iv) 40 mg IVPUSH ONETIME ONE Stop: 02/25/17 11:06 Last Admin: 02/25/17 11:02 Dose: 40 mg Propofol (Diprivan 20 Ml) Confirm Administered Dose 200 mg .ROUTE .STK-MED ONE Stop: 02/25/17 09:21 - Exam Quality Assessment: No: Supplemental Oxygen General: Alert, Oriented, Cooperative, No Acute Distress Neck: Supple Lungs: Normal Respiratory Effort Cardiovascular: Regular Rate, Regular Rhythm GI/Abdominal Exam: Soft, No Distention Extremities: No Pedal Edema Skin: Warm, Dry, Rash (Erythematous and macular rash which is patchy across both cheeks, left greater than right) Psy/Mental Status: Alert, Normal Affect Consult PN Assessment/Plan Procedures: Procedures ASSAY OF AMYLASE (02/08/17) ASSAY OF FREE THYROXINE (01/31/17) ASSAY OF LACTIC ACID (01/31/17) ASSAY OF LIPASE (02/08/17) ASSAY OF MAGNESIUM (01/31/17) ASSAY OF PHOSPHORUS (01/31/17) ASSAY OF SERUM SODIUM (01/31/17) ASSAY OF TROPONIN QUANT (01/27/17) ASSAY THYROID STIM HORMONE (01/31/17) BONE IMAGING 3 PHASE (11/15/15) C-REACTIVE PROTEIN (01/27/17) CHEST X-RAY 2VW FRONTAL&LATL (01/27/17) COMP SCREEN MAMMOGRAM ADD-ON (05/24/16) COMPLETE CBC AUTOMATED (01/31/17) COMPLETE CBC W/AUTO DIFF WBC (02/08/17) COMPREHEN METABOLIC PANEL (02/08/17) CREATINE MB FRACTION (01/27/17) CT ABD & PELV W/CONTRAST (01/31/17) CT ABD & PELVIS W/O CONTRAST (02/08/17) CULTURE SCREEN ONLY (01/27/17) ECHO EXAM OF ABDOMEN (01/27/17) ELECTRIC CURRENT THERAPY (01/18/16) ELECTROCARDIOGRAM TRACING (01/27/17) EMERGENCY DEPT VISIT (02/08/17) EMERGENCY DEPT VISIT (01/31/17) EMERGENCY DEPT VISIT (01/30/17) EMERGENCY DEPT VISIT (01/27/17) EMERGENCY DEPT VISIT (07/16/15) HEPATOBIL SYST IMAGE W/DRUG (01/31/17) HYDRATE IV INFUSION ADD-ON (01/31/17) HYDRATION IV INFUSION INIT (01/31/17) MANUAL THERAPY 1/> REGIONS (05/24/16) MEASURE BLOOD OXYGEN LEVEL (01/31/17) METABOLIC PANEL TOTAL CA (01/31/17) ORTHOTIC MGMT AND TRAINING (12/22/15) OT EVALUATION (05/24/16) RBC SED RATE NONAUTOMATED (01/27/17) ROUTINE VENIPUNCTURE (02/08/17) THER/PROPH/DIAG INJ IV PUSH (02/08/17) THER/PROPH/DIAG INJ SC/IM (07/16/15) THERAPEUTIC ACTIVITIES (12/22/15) THERAPEUTIC EXERCISES (01/18/16) TISSUE EXAM BY PATHOLOGIST (01/31/17) TISSUE EXAM BY PATHOLOGIST (01/31/17) TX/PRO/DX INJ NEW DRUG ADDON (02/08/17) ULTRASOUND THERAPY (05/24/16) URINALYSIS AUTO W/SCOPE (02/08/17) Problem List Initiated/Reviewed/Updated: Yes My Orders Last 24 Hours: My Active Orders 02/26/17 04:20 LUCI SCREEN,REFLEXIVE [REF] Routine ANCA, ATYPICAL (REFLEXIVE) [REF] Routine C3 [REF] Routine C4 [REF] Routine PROTEIN ELECTROPHORESIS,SERUM [REF] Routine SJOGRENS ANTIBODIES [REF] Routine 02/26/17 16:00 metroNIDAZOLE [metroNIDAZOLE 0.75% Gel] 0 gm TOP BID 02/27/17 07:30 Levothyroxine 100 mcg PO DAILY@0730 Plan: ASSESSMENT AND PLAN Generalized weakness with persistent nausea and weight loss - etiology not entirely clear and extensive autoimmune workup has been sent. She does have an elevated free T4 level though her TSH is normal. Diarrhea overnight but no diarrhea today to collect a sample. -Workup for autoimmune disease including LUCI, Sjogren's antibodies, ANCA, sarcoidosis and C3/C4 levels -Decrease levothyroxine to 100 g Acute kidney injury with hyponatremia and hyperkalemia - she has had several episodes of this over the past month. Levels have improved with hydration. Clinically she looks better today. -Workup as above -Hydration -Repeat labs in the morning Recent cholecystectomy - no evidence for complication at this time. She does have some diarrhea and if it persists cholestyramine could be considered. Thank you for the interesting consultation. I will continue to follow along with Eileen's care during the hospital stay. Xu Jung M.D.
[2017-02-26] MEDS: Doxepin 10 MG Cap PO SCH (20:10)
[2017-02-26] MEDS: Montelukast 10 MG Tab PO SCH (20:10)
[2017-02-27] MEDS: Dextrose 5%-Lactated Ringers 1,000 ML IV SCH (02:05)
[2017-02-27] MEDS: Magnesium Sulfate/Water 2 GM in Premix Bag 1 BAG IV SCH ×2 (04:50→09:18)
[2017-02-27] MEDS: Aluminum Hydroxide/Magnesium Hydroxide/Simethicone Susp 30 ML Cup PO SCH ×4 (04:59→21:25)
[2017-02-27] MEDS: Levothyroxine 100 MCG Tab PO SCH (08:00)
[2017-02-27] MEDS: Pantoprazole 40 MG Vial IV SCH (09:18)
--- NOTE | 2017-02-27 09:36 | PN ---
DATE OF SERVICE: 02/26/2017 The patient has been afebrile with stable vital signs. With hydration, she is feeling somewhat better. Oral intake was around 780 mL. She thinks particularly the Gaviscon is helpful in terms of the gastric symptoms, and we will continue the Protonix as well. Otherwise, with continued frequent loose bowel movements, we will check the stools for C. difficile, as well as O&P, routine C&S, and WBCs today, and back down the IV rate. Otherwise, Dr. Jung is working up more esoteric type issues that present within her differential diagnosis. Matthew Peralta MD /[id number]
[2017-02-27] MEDS: Magnesium Oxide 400 MG Tab PO SCH ×2 (10:23→20:23)
[2017-02-27] MEDS: Loperamide 2 MG Cap PO SCH ×2 (10:24→16:56)
--- NOTE | 2017-02-27 13:08 | PCM.CONSN ---
- General Info Date of Service: 02/27/17 Functional Status: Reports: Pain Controlled, Tolerating Diet, Ambulating - Review of Systems General: Reports: Weakness. Denies: Fever Gastrointestinal: Reports: Diarrhea Skin: Reports: Rash Systems Review Comment:: No acute events overnight but she did have several episodes of diarrhea. C. difficile was negative and no white blood cells were seen. No fevers overnight and vitals have been stable. Clinically she feels a little better today with improved energy and strength. The rash on the right side of her face is a little better but seems a little bit worse on the left side. Autoimmune workup still pending. - Patient Data Vitals - Most Recent: Last Vital Signs Temp 36.4 C 02/27/17 11:57 Pulse 79 02/27/17 11:57 Resp 16 02/27/17 11:57 BP 121/73 02/27/17 11:57 Pulse Ox 99 02/27/17 11:57 Weight - Most Recent: 65.487 kg I&O - Last 24 Hours: Intake & Output 02/26/17 02/27/17 02/27/17 22:59 06:59 14:59 Intake Total 1090 2190 755 Output Total 700 1400 900 Balance 390 790 -145 Kenneth Results Last 24 Hours: Microbiology 02/26/17 16:03 - Final Stool / Feces NEGATIVE FOR SHIGA TOXIN 1 - Final NEGATIVE FOR SHIGA TOXIN 2 02/26/17 16:03 Clostridium difficile (PCR) - Final Stool / Feces NEGATIVE CDIFF TOXIN 02/26/17 16:03 Stool for WBCs - Final Stool / Feces NO WBC SEEN 02/25/17 10:50 CLOtest - Final Stomach NEGATIVE CLOTEST Med Orders - Current: Current Medications Al Hydroxide/Mg Hydroxide (Mag-Al Plus) 30 ml PO QID [facility] Last Admin: 02/27/17 09:18 Dose: 30 ml Doxepin HCl (Sinequan) 10 mg PO BEDTIME [facility] Last Admin: 02/26/17 20:10 Dose: Not Given Dextrose/Lactated Ringer's (Dextrose 5%-Lactated Ringers) 1,000 mls @ 100 mls/ hr IV ASDIRECTED [facility] Last Admin: 02/27/17 02:05 Dose: 100 mls/hr Levothyroxine Sodium (Synthroid) 100 mcg PO DAILY@0730 [facility] Last Admin: 02/27/17 08:00 Dose: 100 mcg Loperamide HCl (Imodium) 2 mg PO TIDAC [facility] Last Admin: 02/27/17 10:24 Dose: Not Given Magnesium Oxide (Magnesium Oxide) 400 mg PO BID [facility] Last Admin: 02/27/17 10:23 Dose: 400 mg Metronidazole (Metronidazole 0.75% Gel) 0 gm TOP BID [facility] Last Admin: 02/27/17 09:17 Dose: 1 applic Montelukast Sodium (Singulair) 10 mg PO BEDTIME [facility] Last Admin: 02/26/17 20:10 Dose: Not Given Ondansetron HCl (Zofran) 4 mg IVPUSH Q4H PRN PRN Reason: Nausea Pantoprazole Sodium (Protonix) 40 mg PO BIDAC [facility] Discontinued Medications Cyanocobalamin (Vitamin B12) 1,000 mcg IM ONETIME ONE Stop: 02/25/17 09:01 Last Admin: 02/25/17 09:20 Dose: 1,000 mcg Fentanyl (Sublimaze) Confirm Administered Dose 100 mcg .ROUTE .STK-MED ONE Stop: 02/25/17 09:21 Glycopyrrolate (Glycopyrrolate) 0.4 mg IVPUSH ONETIME ONE Stop: 02/25/17 09:31 Last Admin: 02/25/17 10:35 Dose: 0.4 mg Lactated Ringer's (Ringers, Lactated) 1,000 mls @ 999 mls/hr IV ASDIRECTED [facility] Stop: 02/26/17 08:31 Last Admin: 02/25/17 09:24 Dose: 999 mls/hr Multivitamins/Minerals 10 ml/Thiamine HCl 200 mg/ Chromium/Copper/Manganese/ Seleni/Zn 1 ml/ Lactated Ringer's 1,013 mls @ 500 mls/hr IV ASDIRECTED ONE Stop: 02/25/17 11:31 Last Admin: 02/25/17 10:34 Dose: 500 mls/hr Dextrose/Lactated Ringer's (Dextrose 5%-Lactated Ringers) 1,000 mls @ 125 mls/ hr IV ASDIRECTED [facility] Last Admin: 02/26/17 06:00 Dose: 125 mls/hr Dextrose/Lactated Ringer's (Dextrose 5%-Lactated Ringers) 1,000 mls @ 100 mls/ hr IV ASDIRECTED [facility] Magnesium Sulfate 2 gm/ Premix 50 mls @ 25 mls/hr IV Q6H [facility] Stop: 02/28/17 05:59 Last Admin: 02/27/17 09:18 Dose: 25 mls/hr Levothyroxine Sodium (Levothyroxine) 112 mcg PO DAILY@0730 [facility] Last Admin: 02/26/17 08:05 Dose: 112 mcg Midazolam HCl (Versed 1 Mg/Ml) Confirm Administered Dose 2 mg .ROUTE .STK-MED ONE Stop: 02/25/17 09:21 Pantoprazole Sodium (Protonix Iv) 40 mg IVPUSH ONETIME ONE Stop: 02/25/17 11:06 Last Admin: 02/25/17 11:02 Dose: 40 mg Pantoprazole Sodium (Protonix Iv) 40 mg IV Q12H [facility] Last Admin: 02/27/17 09:18 Dose: 40 mg Propofol (Diprivan 20 Ml) Confirm Administered Dose 200 mg .ROUTE .STK-MED ONE Stop: 02/25/17 09:21 - Exam Quality Assessment: No: Supplemental Oxygen General: Alert, Oriented, Cooperative, No Acute Distress Neck: Supple Lungs: Normal Respiratory Effort Cardiovascular: Regular Rate, Regular Rhythm GI/Abdominal Exam: Soft, No Distention Extremities: No Pedal Edema Skin: Warm, Dry, Rash (erythematous rash both cheeks L>R. also involves left jaw line) Psy/Mental Status: Alert, Normal Affect Consult PN Assessment/Plan Procedures: Procedures ASSAY OF AMYLASE (02/08/17) ASSAY OF FREE THYROXINE (01/31/17) ASSAY OF LACTIC ACID (01/31/17) ASSAY OF LIPASE (02/08/17) ASSAY OF MAGNESIUM (01/31/17) ASSAY OF PHOSPHORUS (01/31/17) ASSAY OF SERUM SODIUM (01/31/17) ASSAY OF TROPONIN QUANT (01/27/17) ASSAY THYROID STIM HORMONE (01/31/17) BONE IMAGING 3 PHASE (11/15/15) C-REACTIVE PROTEIN (01/27/17) CHEST X-RAY 2VW FRONTAL&LATL (01/27/17) COMP SCREEN MAMMOGRAM ADD-ON (05/24/16) COMPLETE CBC AUTOMATED (01/31/17) COMPLETE CBC W/AUTO DIFF WBC (02/08/17) COMPREHEN METABOLIC PANEL (02/08/17) CREATINE MB FRACTION (01/27/17) CT ABD & PELV W/CONTRAST (01/31/17) CT ABD & PELVIS W/O CONTRAST (02/24/17) CULTURE SCREEN ONLY (01/27/17) ECHO EXAM OF ABDOMEN (01/27/17) ELECTRIC CURRENT THERAPY (01/18/16) ELECTROCARDIOGRAM TRACING (01/27/17) EMERGENCY DEPT VISIT (02/08/17) EMERGENCY DEPT VISIT (01/31/17) EMERGENCY DEPT VISIT (01/30/17) EMERGENCY DEPT VISIT (01/27/17) EMERGENCY DEPT VISIT (07/16/15) HEPATOBIL SYST IMAGE W/DRUG (01/31/17) HYDRATE IV INFUSION ADD-ON (01/31/17) HYDRATION IV INFUSION INIT (01/31/17) MANUAL THERAPY 1/> REGIONS (05/24/16) MEASURE BLOOD OXYGEN LEVEL (01/31/17) METABOLIC PANEL TOTAL CA (01/31/17) ORTHOTIC MGMT AND TRAINING (12/22/15) OT EVALUATION (05/24/16) RBC SED RATE NONAUTOMATED (01/27/17) ROUTINE VENIPUNCTURE (02/08/17) THER/PROPH/DIAG INJ IV PUSH (02/08/17) THER/PROPH/DIAG INJ SC/IM (07/16/15) THERAPEUTIC ACTIVITIES (12/22/15) THERAPEUTIC EXERCISES (01/18/16) TISSUE EXAM BY PATHOLOGIST (01/31/17) TISSUE EXAM BY PATHOLOGIST (01/31/17) TX/PRO/DX INJ NEW DRUG ADDON (02/08/17) ULTRASOUND THERAPY (05/24/16) URINALYSIS AUTO W/SCOPE (02/08/17) Problem List Initiated/Reviewed/Updated: Yes My Orders Last 24 Hours: My Active Orders 02/26/17 16:00 metroNIDAZOLE [metroNIDAZOLE 0.75% Gel] 0 gm TOP BID 02/27/17 07:30 Levothyroxine [Synthroid] 100 mcg PO DAILY@0730 02/28/17 05:00 BASIC METABOLIC PANEL,BMP [CHEM] Timed CBC W/O DIFF,HEMOGRAM [HEME] Timed (1) Plan: ASSESSMENT AND PLAN Generalized weakness with persistent nausea and weight loss - etiology not entirely clear and extensive autoimmune workup has been sent. She does have an elevated free T4 level though her TSH is normal. Diarrhea not that impressive at this time. -Workup for autoimmune disease including LUCI, Sjogren's antibodies, ANCA, sarcoidosis and C3/C4 levels -Decrease levothyroxine to 100 g Acute kidney injury with hyponatremia and hyperkalemia - she has had several episodes of this over the past month. Levels have improved with hydration. Clinically looking and feeling better today. -Workup as above -Hydration -Repeat labs in the morning Xu Jung M.D.
[2017-02-27] MEDS: Pantoprazole 40 MG Tab.CR PO SCH (15:52)
[2017-02-27] MEDS: Doxepin 10 MG Cap PO SCH (20:22)
[2017-02-27] MEDS: Montelukast 10 MG Tab PO SCH (20:22)
[2017-02-28] MEDS: Loperamide 2 MG Cap PO SCH ×2 (04:33→07:27)
[2017-02-28] MEDS: Aluminum Hydroxide/Magnesium Hydroxide/Simethicone Susp 30 ML Cup PO SCH ×2 (05:57→09:16)
[2017-02-28 07:23] VITALS: BP 128/77
[2017-02-28] MEDS: Levothyroxine 100 MCG Tab PO SCH (07:29)
[2017-02-28] MEDS: Pantoprazole 40 MG Tab.CR PO SCH (07:29)
[2017-02-28] MEDS: Magnesium Oxide 400 MG Tab PO SCH (08:01)
--- NOTE | 2017-03-02 12:01 | OR ---
DATE OF PROCEDURE: 02/25/2017 PREOPERATIVE DIAGNOSES: Nausea, dehydration, and weakness. POSTOPERATIVE DIAGNOSES: 1. Nausea, dehydration, and weakness associated with diffuse gastritis. 2. Small uncomplicated hiatal hernia. OPERATIVE PROCEDURES: Esophagogastroduodenoscopy with: 1. Biopsies of body and antrum of stomach for histology. 2. Biopsies of antrum for CLOtest. ANESTHESIA: IV sedation. INDICATION FOR PROCEDURE: This is a 71-year-old presenting with ongoing nausea, dehydration, and weakness. With this, she was also noted to have an elevated potassium and creatinine as well as an elevated calcium. Plan is to proceed with initial hydration followed by an upper GI endoscopy with biopsies as indicated. Potential risks including bleeding and perforation were discussed, and the patient wishes to proceed. DETAILS OF PROCEDURE: The patient was taken to the operating room and placed in a left lateral decubitus position. IV sedation was administered after which the upper GI endoscope was passed orally through the length of the esophagus and into the stomach with retroflexion view of the fundus, and thereafter through the pyloric channel and into the proximal duodenum. The findings included a normal hypopharynx, larynx, upper esophageal sphincter and esophageal body; small hiatal hernia was present, which was otherwise uncomplicated. Within the stomach, there was diffuse gastritis. This was perhaps more intense in the distal body and antrum, but was present throughout. This was not associated with any erosions or ulcers. As one passed into the pyloric sphincter and duodenum, these areas were unremarkable. At this point, multiple biopsies were obtained from the body and antrum and sent for histologic evaluation. Following this, biopsies were obtained from the antrum and sent for CLOtest for H. pylori. Minimal bleeding from the biopsy sites was seen and the procedure then concluded. The plan at this point will be to admit the patient for intense acid blockade treatment. We will begin Protonix and Gaviscon with medical issues ongoing. We will also consult the on- call hospitalist, Dr. Jung for a general medical evaluation. Matthew Peralta MD /[id number]
--- NOTE | 2017-03-04 12:47 | PN ---
DATE OF SERVICE: 02/27/2017 The patient has been afebrile with stable vital signs. Her oral intake was fairly good yesterday, around 1600 mL, and her nausea appeared to be abating. The magnesium is hurting her IV site, so we will go to oral on that, as she is just marginally low. She is still having frequent loose bowel movements, but her stool cultures have been negative, as was the C. difficile enterotoxin once again. Given this, we will try some Imodium 2 mg t.i.d. before her main meals and have Physical Therapy see the patient today as well. Otherwise, continue evaluation and workup per Dr. Jung. Matthew Peralta MD /[id number]
--- NOTE | 2017-03-12 12:03 | DISCH ---
FINAL DIAGNOSES: 1. Nausea and vomiting secondary to diffuse gastritis. 2. Hyponatremia and hyperkalemia associated with acute kidney injury. 3. Autoimmune workup pending. PROCEDURES: Done on 02/25, esophagogastroduodenoscopy with biopsy of the stomach for both CLOtest and histology. SUMMARY: This is a 71-year-old status post recent cholecystectomy, presenting with nausea and dehydration and frequent loose bowel movements, and she was admitted for hydration. Upper endoscopy revealed diffuse gastritis, and she was treated with Protonix and Gaviscon. This rapidly improved things and at the time of discharge, she was taking in orally satisfactorily. She was noted to be somewhat high in terms of potassium and low in sodium, and those were corrected during the course of the hospitalization. Autoimmune work up is pending. Pathology on the biopsies confirmed chronic gastritis and CLOtest was negative. She will be discharged home on continuing the Protonix, as well as magnesium supplementation as her magnesium was also noted to be somewhat low. She will be following up with Dr. Cherry in roughly one week and Dr. Peralta in one week as well.
== END 2017-02-28 11:12 | disposition home or self-care (01) | DRG 948 ==
LOC: JP.SDS 08:26 → JP.MS 08:26 → EDSTATUS 09:15 → JP.2SS 11:10
PROVIDERS: ADMIT Surgery; ATTEND Surgery
PROC: 0DB68ZX Excision of Stomach, Via Natural or Artificial Opening Endoscopic, Diagnostic (ICD-10-PCS; principal; 2017-02-25)
DX: R53.1 Weakness (principal); N17.9 Acute kidney failure, unspecified; E87.1 Hypo-osmolality and hyponatremia; K29.70 Gastritis, unspecified, without bleeding; E86.0 Dehydration; E87.5 Hyperkalemia; Z90.49 Acquired absence of other specified parts of digestive tract; Z88.6 Allergy status to analgesic agent; Z88.8 Allergy status to other drugs, medicaments and biological substances; H54.7 Unspecified visual loss; K21.9 Gastro-esophageal reflux disease without esophagitis; M19.90 Unspecified osteoarthritis, unspecified site; F32.9 Major depressive disorder, single episode, unspecified; F41.9 Anxiety disorder, unspecified; E03.9 Hypothyroidism, unspecified; Z87.891 Personal history of nicotine dependence; Z79.899 Other long term (current) drug therapy
CPT/HCPCS: 36415; 71020; 71020-26; 80048; 80053; 81001; 83735; 83880; 84100; 84165; 84439; 84443; 85027; 85651; 86038; 86160; 86235; 86235-59; 86256; 87046; 87081; 87177; 87186; 87209; 87493; 87899; 88305; 88342; 89055; 97162-GP; A9270-GY; C9113; J2250; J2704; J3010; J3411; J3420; J3475; J3490; J7042; J7120

== ENCOUNTER 2017-05-01 16:28 | Inpatient (IN) | payer MEDICARE, OTHER ==
--- NOTE | 2017-05-01 17:32 | EDM.PDOC ---
ED HPI GENERAL MEDICAL PROBLEM - General Chief Complaint: General Stated Complaint: illness Time Seen by Provider: 05/01/17 16:45 Source of Information: Reports: Patient History Limitations: Reports: No Limitations - History of Present Illness INITIAL COMMENTS - FREE TEXT/NARRATIVE: pt arrived with ahistory of having blood drawn today and her k returned very high at 7.2. her creatnine was not real high. Onset: Other ( The result was picked up this pm and she was sent to the Er. ) Duration: Hour(s): Location: Reports: Other ( high k. ) Associated Symptoms: Reports: No Other Symptoms - Related Data Allergies Allergy/AdvReac Type Severity Reaction Status Date / Time benzocaine Allergy Itching Verified 05/01/17 17:02 tramadol Allergy Hives Verified 05/01/17 17:02 omeprazole AdvReac Nausea Verified 05/01/17 17:02 Home Meds: Home Meds Fexofenadine HCl 180 mg PO DAILY 07/16/15 [History] metroNIDAZOLE [metroNIDAZOLE 0.75% Gel] 45 gm TOP ASDIRECTED 07/16/15 [History] Levothyroxine [Synthroid] 100 mcg PO DAILY@0730 #90 tablet 02/28/17 [Rx] Pimecrolimus [Elidel] 1 dose TOP DAILY 05/01/17 [History] Past Medical History HEENT History: Reports: Impaired Vision Cardiovascular History: Reports: None Respiratory History: Reports: None Gastrointestinal History: Reports: Chronic Diarrhea, GERD Genitourinary History: Reports: UTI, Recurrent 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 Right ulnar nerve transposition. Bunion removal to left foot. Neurological History: Reports: Other (See Below) Other Neuro History: "Nerve pain to right arm". Psychiatric History: Reports: Anxiety, Depression Endocrine/Metabolic History: Reports: Hypothyroidism Hematologic History: Reports: Anesthesia Reaction Immunologic History: Reports: None Oncologic (Cancer) History: Reports: None Dermatologic History: Reports: Other (See Below) Other Dermatologic History: DERMATITIS - Infectious Disease History Infectious Disease History: Reports: Chicken Pox, Herpes, Measles - Past Surgical History HEENT Surgical History: Reports: Tonsillectomy GI Surgical History: Reports: Appendectomy, Cholecystectomy, Colonoscopy Other GI Surgeries/Procedures: erick 02/04/17 Musculoskeletal Surgical History: Reports: Arthroscopic Knee, Nerve Relocation, Other (See Below) Other Musculoskeletal Surgeries/Procedures:: ELBOW ULNAR NERVE REPAIR Social & Family History - Family History Family Medical History: Noncontributory Cardiac: Reports: CAD Oncologic: Reports: Breast, Lung - Tobacco Use Smoking Status *Q: Never Smoker Used Tobacco, but Quit: Yes Month Tobacco Last Used: 30 years ago Second Hand Smoke Exposure: No - Caffeine Use Caffeine Use: Reports: Coffee - Recreational Drug Use Recreational Drug Use: No ED ROS GENERAL - Review of Systems Review Of Systems: See Below Constitutional: Reports: No Symptoms HEENT: Reports: No Symptoms Respiratory: Reports: No Symptoms Cardiovascular: Reports: No Symptoms Endocrine: Reports: No Symptoms GI/Abdominal: Reports: No Symptoms : Reports: No Symptoms Musculoskeletal: Reports: No Symptoms Skin: Reports: No Symptoms ED EXAM, GENERAL - Physical Exam Exam: See Below Free Text/Narrative:: pt was found to have a k 0f 7.4 at the clinic. She had a creatnine of 1.6. She did not have symptoms. She did have a ekg at the clinic which looked good. Exam Limited By: No Limitations General Appearance: Alert, Anxious Ears: Normal TMs Nose: Normal Inspection Throat/Mouth: Normal Inspection Head: Atraumatic Neck: Normal Inspection Respiratory/Chest: No Respiratory Distress Cardiovascular: Regular Rate, Rhythm GI/Abdominal: Soft, Non-Tender (Female) Exam: Deferred Rectal (Female) Exam: Deferred Back Exam: Normal Inspection Extremities: Normal Inspection Neurological: Alert, Oriented, Normal Cognition Course - Vital Signs Last Recorded V/S: Last Vital Signs Temp 34.8 C L 05/01/17 17:02 Pulse 80 05/01/17 17:02 Resp 16 05/01/17 17:02 BP 126/92 H 05/01/17 17:02 Pulse Ox 96 05/01/17 17:02 - Orders/Labs/Meds Orders: Active Orders 24 hr Category Date Time Status EKG Documentation Completion [RC] ASDIRECTED Care 05/01/17 17:43 Ordered Sodium Chloride 0.9% [Normal Saline] 1,000 ml Med 05/01/17 18:00 Ordered IV ASDIRECTED EKG 12 Lead [EK] Routine Ther 05/01/17 17:43 Ordered Medication Orders Sodium Chloride (Normal Saline) 1,000 mls @ 250 mls/hr IV ASDIRECTED DENISE Labs: Laboratory Tests 05/01/17 05/01/17 Range/Units 17:15 17:15 WBC 6.9 (4.5-11.0) K/uL RBC 4.51 (3.30-5.50) M/uL Hgb 13.7 D (12.0-15.0) g/dL Hct 39.9 (36.0-48.0) % MCV 89 (80-98) fL MCH 30 (27-31) pg MCHC 34 (32-36) % Plt Count 294 (150-400) K/uL Neut % (Auto) 52 (36-66) % Lymph % (Auto) 30 (24-44) % [place] % (Auto) 9 H (2-6) % Eos % (Auto) 9 H (2-4) % Baso % (Auto) 1 (0-1) % Sodium 121 L (140-148) mmol/L Potassium 7.6 H* (3.6-5.2) mmol/L Chloride 92 L (100-108) mmol/L Carbon Dioxide 21 (21-32) mmol/L Anion Gap 15.6 H (5.0-14.0) mmol/L BUN 35 H D (7-18) mg/dL Creatinine 1.6 H D (0.6-1.0) mg/dL Est Cr Clr Drug Dosing 32.80 mL/min Estimated GFR (MDRD) 32 L (>60) Glucose 81 (74-106) mg/dL Calcium 10.0 (8.5-10.1) mg/dL Total Bilirubin 0.5 (0.2-1.0) mg/dL AST 30 (15-37) U/L ALT 36 (12-78) U/L Alkaline Phosphatase 97 (46-116) U/L Total Protein 8.3 H (6.4-8.2) g/dL Albumin 4.5 (3.4-5.0) g/dL Globulin 3.8 H (2.3-3.5) g/dL Albumin/Globulin Ratio 1.2 (1.2-2.2) Meds: Medications Generic Name Dose Route Start Last Admin Trade Name Freq PRN Reason Stop Dose Admin Sodium Chloride 1,000 mls @ 250 mls/hr 05/01/17 18:00 Normal Saline IV ASDIRECTED DENISE Discontinued Medications Generic Name Dose Route Start Last Admin Trade Name Juanq PRN Reason Stop Dose Admin Sodium Polystyrene Sulfonate 15 gm 05/01/17 17:43 Kayexalate PO 05/01/17 17:44 ONETIME ONE Sodium Polystyrene Sulfonate 45 gm 05/01/17 17:57 Kayexalate PO 05/01/17 17:58 ONETIME ONE - Re-Assessments/Exams Free Text/Narrative Re-Assessment/Exam: 05/01/17 18:02 pt had repeat lab work and repeat ekg. Her ekg looked good. Her k was found to be 7.6. Departure - Departure Time of Disposition: 18:04 Disposition: Admitted As Inpatient 68 Condition: Fair Clinical Impression: Hyperkalemia, Hyponatremia Hypothyroid Qualifiers: Hypothyroidism type: unspecified Qualified Code(s): E03.9 - Hypothyroidism, unspecified - Discharge Information Referrals: Bacilio Cherry MD [Primary Care Provider] - Forms: ED Department Discharge Care Plan Goals: admit to Dr carranza - My Orders Last 24 Hours: My Active Orders 05/01/17 17:43 EKG Documentation Completion [RC] ASDIRECTED EKG 12 Lead [EK] Routine 05/01/17 18:00 Sodium Chloride 0.9% [Normal Saline] 1,000 ml IV ASDIRECTED - Assessment/Plan Last 24 Hours: My Active Orders 05/01/17 17:43 EKG Documentation Completion [RC] ASDIRECTED EKG 12 Lead [EK] Routine 05/01/17 18:00 Sodium Chloride 0.9% [Normal Saline] 1,000 ml IV ASDIRECTED
[2017-05-01] MEDS ORDERED: Sodium Polystyrene Sulfonate 15 GM/60 ML Susp 60 ML Bot PO ONE ×2 (17:43→17:57)
[2017-05-01] MEDS ORDERED: Sodium Chloride 0.9% 1,000 ML IV SCH (18:00)
--- NOTE | 2017-05-01 20:38 | PCM.HP ---
H&P History of Present Illness - General Date of Service: 05/01/17 Admit Problem/Dx: Admission Diagnosis/Problem Admission Diagnosis/Problem Hyperkalemia Source of Information: Patient, Family, Old Records, Provider, RN Notes Reviewed History Limitations: Reports: No Limitations - History of Present Illness Initial Comments - Free Text/Narative: Ms. Webber is a 72-year-old woman who is admitted through the emergency department with severe hyperkalemia, hyponatremia, acute kidney injury, dehydration, and probable gastritis. She's had a previous history of gastritis as well as acute kidney injury hyperkalemia and hyponatremia. She was hospitalized at this facility beginning of January and found to have cholecystitis. She underwent laparoscopic cholecystectomy did well until the end of January when she presented with hyperkalemia and acute kidney injury. This was felt to be secondary to gastritis and on EGD she was found to have gastritis. She was placed on Protonix at that time but stopped the Protonix earlier in March. Over the last week has had epigastric abdominal discomfort associated with nausea and progressive profound weakness. She was seen in the clinic today for reoperative evaluation prior to elective arthroscopic surgery on her knee. Laboratory tests showed marked hyperkalemia, hyponatremia, elevated creatinine from baseline. Laboratory studies were repeated here at the hospital and confirmed the above findings. She has not started any new medication recently. - Related Data Allergies/Adverse Reactions: Allergies Allergy/AdvReac Type Severity Reaction Status Date / Time benzocaine Allergy Itching Verified 05/01/17 17:02 tramadol Allergy Hives Verified 05/01/17 17:02 omeprazole AdvReac Nausea Verified 05/01/17 17:02 Home Medications: Home Meds Fexofenadine HCl 180 mg PO DAILY 07/16/15 [History] metroNIDAZOLE [metroNIDAZOLE 0.75% Gel] 45 gm TOP ASDIRECTED 07/16/15 [History] Levothyroxine [Synthroid] 100 mcg PO DAILY@0730 #90 tablet 02/28/17 [Rx] Pimecrolimus [Elidel] 1 dose TOP DAILY 05/01/17 [History] Past Medical History HEENT History: Reports: Impaired Vision Cardiovascular History: Reports: None Respiratory History: Reports: None Gastrointestinal History: Reports: Chronic Diarrhea, GERD Genitourinary History: Reports: UTI, Recurrent MANDARIN SPEAKING NANNY History: Reports: Musculoskeletal History: Reports: Osteoarthritis Other Musculoskeletal History: multiple surgeries to right elbow. Right ulnar nerve transposition. Bunion removal to left foot. Neurological History: Reports: Other (See Below) Other Neuro History: "Nerve pain to right arm". Psychiatric History: Reports: Anxiety, Depression Endocrine/Metabolic History: Reports: Hypothyroidism Hematologic History: Reports: Anesthesia Reaction Immunologic History: Reports: None Oncologic (Cancer) History: Reports: None Dermatologic History: Reports: Other (See Below) Other Dermatologic History: DERMATITIS - Infectious Disease History Infectious Disease History: Reports: Chicken Pox, Herpes, Measles - Past Surgical History HEENT Surgical History: Reports: Tonsillectomy GI Surgical History: Reports: Appendectomy, Cholecystectomy, Colonoscopy Other GI Surgeries/Procedures: erick 02/04/17 Musculoskeletal Surgical History: Reports: Arthroscopic Knee, Nerve Relocation, Other (See Below) Other Musculoskeletal Surgeries/Procedures:: ELBOW ULNAR NERVE REPAIR Social & Family History - Family History Family Medical History: Noncontributory Cardiac: Reports: CAD Oncologic: Reports: Breast, Lung - Tobacco Use Smoking Status *Q: Never Smoker Used Tobacco, but Quit: Yes Month Tobacco Last Used: 30 years ago Second Hand Smoke Exposure: No - Caffeine Use Caffeine Use: Reports: Coffee - Recreational Drug Use Recreational Drug Use: No H&P Review of Systems - Review of Systems: Review Of Systems: See Below General: Reports: Weakness, Fatigue. Denies: Fever, Chills HEENT: Reports: No Symptoms Pulmonary: Reports: No Symptoms Cardiovascular: Reports: No Symptoms Gastrointestinal: Reports: Abdominal Pain, Nausea. Denies: Black Stool, Bloody Stool, Constipation, Diarrhea, Difficulty Swallowing, Distension, Vomiting Genitourinary: Reports: No Symptoms Musculoskeletal: Reports: No Symptoms Skin: Reports: No Symptoms Psychiatric: Reports: No Symptoms Neurological: Reports: No Symptoms Hematologic/Lymphatic: Reports: No Symptoms Immunologic: Reports: No Symptoms Exam - Exam Exam: See Below - Vital Signs Vital Signs: Last Vital Signs Temp 94.6 F L 05/01/17 17:02 Pulse 80 05/01/17 17:02 Resp 16 05/01/17 17:02 BP 126/92 H 05/01/17 17: Pulse Ox 96 05/01/17 17:02 Weight: 140 lb - Exam Quality Assessment: DVT Prophylaxis General: Alert, Oriented, Cooperative, Mild Distress HEENT: Conjunctiva Clear, Hearing Intact, Normal Nasal Septum, Posterior Pharynx Clear, Pupils Equal. No: Mucosa Moist & [place] Neck: Supple, Trachea Midline, +2 Carotid Pulse wo Bruit Lungs: Clear to Auscultation, Normal Respiratory Effort Cardiovascular: Regular Rate, Regular Rhythm, Normal S1, Normal S2. No: Systolic Murmur, Diastolic Murmur GI/Abdominal Exam: Normal Bowel Sounds, Soft, No Organomegaly, No Distention, Tender. No: Distended, Guarding, Rigid, Rebound Back Exam: Normal Inspection, Full Range of Motion, NT Extremities: Non-Tender, No Pedal Edema Skin: Warm, Dry, Intact Neurological: Cranial Nerves Intact, Strength Equal Bilateral, Normal Speech, Normal Tone, Sensation Intact. No: Focal Deficit Neuro Extensive - Mental Status: Alert, Oriented x3, Normal Mood/Affect, Normal Cognition, Memory Intact - Patient Data Lab Results Last 24 hrs: Laboratory Results - last 24 hr 05/01/17 05/01/17 Range/Units 17:15 17:15 WBC 6.9 (4.5-11.0) K/uL RBC 4.51 (3.30-5.50) M/uL Hgb 13.7 D (12.0-15.0) g/dL Hct 39.9 (36.0-48.0) % MCV 89 (80-98) fL MCH 30 (27-31) pg MCHC 34 (32-36) % Plt Count 294 (150-400) K/uL Neut % (Auto) 52 (36-66) % Lymph % (Auto) 30 (24-44) % [place] % (Auto) 9 H (2-6) % Eos % (Auto) 9 H (2-4) % Baso % (Auto) 1 (0-1) % Sodium 121 L (140-148) mmol/L Potassium 7.6 H* (3.6-5.2) mmol/L Chloride 92 L (100-108) mmol/L Carbon Dioxide 21 (21-32) mmol/L Anion Gap 15.6 H (5.0-14.0) mmol/L BUN 35 H D (7-18) mg/dL Creatinine 1.6 H D (0.6-1.0) mg/dL Est Cr Clr Drug Dosing 32.80 mL/min Estimated GFR (MDRD) 32 L (>60) Glucose 81 (74-106) mg/dL Calcium 10.0 (8.5-10.1) mg/dL Total Bilirubin 0.5 (0.2-1.0) mg/dL AST 30 (15-37) U/L ALT 36 (12-78) U/L Alkaline Phosphatase 97 (46-116) U/L Total Protein 8.3 H (6.4-8.2) g/dL Albumin 4.5 (3.4-5.0) g/dL Globulin 3.8 H (2.3-3.5) g/dL Albumin/Globulin Ratio 1.2 (1.2-2.2) Result Diagrams: 05/01/17 17:15 05/01/17 17:15 *Q Meaningful Use (ADM) - VTE *Q VTE Criteria *Q: - VTE Risk Assess *Q Each Risk Factor Represents 1 Point: None Total Score 1 Point Risk Factors: 0 Each Risk Factor Represents 2 Points: Age 60 - 74 Years Total Score 2 Point Risk Factors: 2 Each Risk Factor Represents 3 Points: None Total Score 3 Point Risk Factors: 0 Each Risk Factor Represents 5 Points: None Total Score 5 Point Risk Factors: 0 Venous Thromboembolism Risk Factor Score *Q: 2 - Stroke *Q Stroke Criteria *Q: - AMI *Q AMI Criteria *Q: Problem List Initiated/Reviewed/Updated: Yes Orders Last 24hrs: Active Orders 24 hr Category Date Time Status Patient Status Manage Transfer [TRANSFER] Routine ADT 05/01/17 20:11 Ordered EKG Documentation Completion [RC] ASDIRECTED Care 05/01/17 17:43 Active Sodium Chloride 0.9% [Normal Saline] 1,000 ml Med 05/01/17 18:00 Active IV ASDIRECTED Resuscitation Status Routine Resus Stat 05/01/17 20:13 Ordered EKG 12 Lead [EK] Routine Ther 05/01/17 17:43 Ordered Medication Orders Sodium Chloride (Normal Saline) 1,000 mls @ 250 mls/hr IV ASDIRECTED DENISE Last Admin: 05/01/17 18:39 Dose: 250 mls/hr Assessment/Plan Comment:: ASSESSMENT AND PLAN HYPERKALEMIA-likely related to acute kidney injury and dehydration. I have personally reviewed the EKG done in the emergency department and it shows no evidence of conduction problem related to the hyperkalemia. -Kayexalate 45 g by mouth given in the emergency department -Recheck potassium level later this evening and again in a.m. -Cardiac monitoring HYPONATREMIA-likely related to free water intake as well as current dehydration and volume depletion -IV normal saline -Recheck sodium level later tonight and again in a.m. ACUTE KIDNEY INJURY-at baseline has chronic kidney disease stage III. Likely secondary to intravascular volume depletion from dehydration. -IV fluids for hydration -Recheck creatinine later tonight and again in a.m. PROBABLE GASTRITIS-she had been treated with H2 jazlyn therapy since last admission but stopped the medication earlier this month. Now over the past week has had poor oral intake related to nausea and epigastric discomfort. -Protonix 40 mg IV every 12 hours -Consult Dr. Cardona for EGD in a.m. DEHYDRATION -IV fluids for hydration as above MAINTENANCE ISSUES -DVT prophylaxis; Lovenox 40 mg subcutaneous daily -GI prophylaxis; Protonix as above -Osorio catheter; not indicated -Nutrition; regular diet, nothing by mouth after midnight -Nicotine dependence; not required CODE STATUS-FULL CODE ADMISSION STATUS-patient will be admitted to inpatient status, expect at least a 2 night hospital stay for evaluation and management of problems as outlined above. At the time of this admission I do not reasonably expected evaluation and management of this problem will require more than a 96 hour hospital stay. DISPOSITION-anticipate discharge to home after the hospital stay. PRIMARY CARE PROVIDER-Dr. Cherry
[2017-05-01] MEDS ORDERED: Sodium Chloride 0.9% 500 ML IV SCH (21:18)
[2017-05-01] MEDS ORDERED: oxyCODONE 5 MG Tab PO PRN (21:18)
[2017-05-01] MEDS ORDERED: Polyethylene Glycol 3350 Powder 17 GM Packet PO PRN (21:18)
[2017-05-01] MEDS ORDERED: Acetaminophen 325 MG Tab PO PRN (21:18)
[2017-05-01] MEDS ORDERED: Sodium Chloride 0.9% 10 ML Syringe FLUSH PRN (21:18)
[2017-05-01] MEDS ORDERED: Ondansetron 4 MG/2 ML SDV IV PRN (21:18)
[2017-05-01] MEDS ORDERED: Pantoprazole 40 MG Vial IV SCH (21:18)
[2017-05-01] MEDS ORDERED: Magnesium Hydroxide 400 MG/5 ML Susp 30 ML Cup PO PRN (21:18)
[2017-05-01] MEDS ORDERED: Enoxaparin 40 MG/0.4 ML Syringe SUBCUT SCH (21:18)
[2017-05-01] MEDS: Sodium Chloride 0.9% 1,000 ML IV SCH (23:41)
[2017-05-02] MEDS ORDERED: Sodium Polystyrene Sulfonate 15 GM/60 ML Susp 60 ML Bot PO ONE ×2 (09:00→17:51)
[2017-05-02] MEDS ORDERED: Sodium Chloride 0.9% 1,000 ML IV SCH (09:00)
[2017-05-02] MEDS ORDERED: PIMECROLIMUS TOP SCH ×2 (09:00→09:30)
[2017-05-02] MEDS: Sodium Chloride 0.9% 1,000 ML IV SCH ×2 (09:09→10:37)
[2017-05-02] MEDS ORDERED: Propofol 200 MG/20 ML SDV ONE (09:42)
[2017-05-02] MEDS ORDERED: fentaNYL 100 MCG/2 ML SDV ONE (09:42)
[2017-05-02] MEDS: Levothyroxine 100 MCG Tab PO SCH (10:35)
[2017-05-02] MEDS: Loratadine 10 MG Tab PO SCH (10:35)
[2017-05-02] MEDS: Pantoprazole 40 MG Vial IV SCH ×2 (10:37→21:08)
[2017-05-02] MEDS: Magnesium Sulfate/Water 2 GM in Premix Bag 1 BAG IV SCH ×2 (10:37→15:35)
[2017-05-02] MEDS: Magnesium Oxide 400 MG Tab PO SCH ×2 (10:37→12:48)
--- NOTE | 2017-05-02 13:20 | OR ---
DATE OF PROCEDURE: 05/02/2017 PROCEDURE: Esophagogastroduodenoscopy. FINDINGS: 1. Plaque-like area in the antrum. 2. No other gross abnormalities. 3. No old or new blood. COMPLICATIONS: None. PLASTIC PRESS MOLDER: None. ANESTHETIC: MAC. PREOPERATIVE DIAGNOSIS: Epigastric pain. POSTOPERATIVE DIAGNOSIS: Epigastric pain. RISKS: Risks, benefits, alternatives, and limitations including but not limited to infection, bleeding, and perforation were explained to the patient, who wished to proceed. PROCEDURE IN DETAIL: The patient was placed in left lateral decubitus position. The EGD scope was introduced, advanced atraumatically to the second part of the duodenum. The scope was brought back and retroflexed. There was a small hiatal hernia. At the gastric antrum, there was a plaque-like area that was biopsied multiple times, using cold biopsy forceps. GE junction was normal. Esophagus was normal. The patient tolerated the procedure well. . Alexey Cardona MD /[id number]
--- NOTE | 2017-05-02 15:04 | PCM.PN ---
- General Info Date of Service: 05/02/17 Subjective Update: Ms. Webber has felt improved since admission, energy levels better and her epigastric abdominal discomfort as well as nausea have essentially resolved. EGD was performed this morning by Dr. Cardona and showed only mild abnormalities. Vital signs have been stable and she is remained afebrile. Potassium level, sodium level, and renal function have all improved from admission - Patient Data Vitals - Most Recent: Last Vital Signs Temp 96.7 F 05/02/17 10:27 Pulse 68 05/02/17 10:44 Resp 16 05/02/17 10:44 BP 107/95 H 05/02/17 10:44 Pulse Ox 99 05/02/17 10:44 Weight - Most Recent: 135 lb 2.012 oz I&O - Last 24 Hours: Intake & Output 05/02/17 05/02/17 05/02/17 06:59 14:59 22:59 Intake Total 1876 1775 Output Total 1100 1100 Balance 776 675 Lab Results Last 24 Hours: Laboratory Results - last 24 hr 05/01/17 05/02/17 05/02/17 Range/Units 22:58 05:21 05:21 WBC 6.3 (4.5-11.0) K/uL RBC 3.92 (3.30-5.50) M/uL Hgb 12.0 (12.0-15.0) g/dL Hct 34.9 L (36.0-48.0) % MCV 89 (80-98) fL MCH 31 (27-31) pg MCHC 34 (32-36) % Plt Count 245 (150-400) K/uL Neut % (Auto) 44 (36-66) % Lymph % (Auto) 35 (24-44) % [place] % (Auto) 8 H (2-6) % Eos % (Auto) 13 H (2-4) % Baso % (Auto) 1 (0-1) % Sodium 126 L 130 L (140-148) mmol/L Potassium 6.0 H 5.7 H (3.6-5.2) mmol/L Chloride 97 L 101 (100-108) mmol/L Carbon Dioxide 22 23 (21-32) mmol/L Anion Gap 13.0 11.7 (5.0-14.0) mmol/L BUN 30 H 24 H (7-18) mg/dL Creatinine 1.4 H 1.1 H (0.6-1.0) mg/dL Est Cr Clr Drug Dosing 36.18 46.05 mL/min Estimated GFR (MDRD) 37 L 49 L (>60) Glucose 93 82 (74-106) mg/dL Calcium 8.8 8.8 (8.5-10.1) mg/dL Magnesium 1.5 L (1.8-2.4) mg/dL Med Orders - Current: Current Medications Acetaminophen (Tylenol) 650 mg PO Q4H PRN PRN Reason: Pain (Mild 1-3)/fever Docusate Sodium (Colace) 100 mg PO BID PRN PRN Reason: Constipation Enoxaparin Sodium (Lovenox) 40 mg SUBCUT Q24H [facility] Magnesium Sulfate 2 gm/ Premix 50 mls @ 25 mls/hr IV Q6H [facility] Stop: 05/02/17 17:59 Last Admin: 05/02/17 10:37 Dose: 25 mls/hr Levothyroxine Sodium (Synthroid) 100 mcg PO DAILY@0730 [facility] Last Admin: 05/02/17 10:35 Dose: 100 mcg Loratadine (Claritin) 10 mg PO DAILY [facility] Last Admin: 05/02/17 10:35 Dose: 10 mg Magnesium Hydroxide (Milk Of Magnesia) 30 ml PO Q12H PRN PRN Reason: Constipation Metronidazole (Metronidazole 0.75% Gel) 45 gm TOP ASDIRECTED [facility] Ondansetron HCl (Zofran) 4 mg IV Q4H PRN PRN Reason: Nausea/Vomiting Oxycodone HCl (Oxycodone) 5 mg PO Q4H PRN PRN Reason: Pain (moderate 4-6) Last Admin: 05/01/17 22:05 Dose: 5 mg Pantoprazole Sodium (Protonix Iv) 40 mg IV Q12H [facility] Last Admin: 05/02/17 10:37 Dose: 40 mg Pimecrolimus (Elidel) 0 gm TOP DAILY [facility] Last Admin: 05/02/17 10:34 Dose: 1 applic Polyethylene Glycol (Miralax) 17 gm PO DAILY PRN PRN Reason: Constipation Sodium Chloride (Saline Flush) 10 ml FLUSH ASDIRECTED PRN PRN Reason: Keep Vein Open Discontinued Medications Enoxaparin Sodium (Lovenox) 40 mg SUBCUT DAILY [facility] Last Admin: 05/01/17 22:04 Dose: 40 mg Fentanyl (Sublimaze) Confirm Administered Dose 100 mcg .ROUTE .STK-MED ONE Stop: 05/02/17 09:43 Sodium Chloride (Normal Saline) 1,000 mls @ 250 mls/hr IV ASDIRECTED [facility] Last Admin: 05/01/17 18:39 Dose: 250 mls/hr Sodium Chloride (Normal Saline) 500 mls @ 250 mls/hr IV .BOLUS [facility] Stop: 05/02/17 01:19 Last Admin: 05/01/17 23:42 Dose: 250 mls/hr Sodium Chloride (Normal Saline) 1,000 mls @ 125 mls/hr IV ASDIRECTED [facility] Last Admin: 05/02/17 10:37 Dose: 125 mls/hr Sodium Chloride (Normal Saline) 1,000 mls @ 500 mls/hr IV ASDIRECTED [facility] Stop: 05/02/17 10:01 Magnesium Oxide (Magnesium Oxide) 400 mg PO BID [facility] Last Admin: 05/02/17 12:48 Dose: Not Given Pantoprazole Sodium (Protonix Iv) 40 mg IV Q12H [facility] Last Admin: 05/01/17 22:05 Dose: 40 mg Propofol (Diprivan 20 Ml) Confirm Administered Dose 200 mg .ROUTE .STK-MED ONE Stop: 05/02/17 09:43 Sodium Polystyrene Sulfonate (Kayexalate) 15 gm PO ONETIME ONE Stop: 05/01/17 17:44 Last Admin: 05/01/17 18:43 Dose: Not Given Sodium Polystyrene Sulfonate (Kayexalate) 45 gm PO ONETIME ONE Stop: 05/01/17 17:58 Last Admin: 05/01/17 18:41 Dose: 45 gm Sodium Polystyrene Sulfonate (Kayexalate) 15 gm PO ONETIME ONE Stop: 05/02/17 09:01 Last Admin: 05/02/17 10:36 Dose: 15 gm - Exam Quality Assessment: DVT Prophylaxis General: Alert, Oriented, Cooperative, No Acute Distress Lungs: Clear to Auscultation, Normal Respiratory Effort Cardiovascular: Regular Rate, Regular Rhythm, No Murmurs GI/Abdominal Exam: Normal Bowel Sounds, Soft, Non-Tender, No Distention Extremities: Non-Tender, No Pedal Edema Skin: Warm, Dry, Intact - Problem List Review Problem List Initiated/Reviewed/Updated: Yes - My Orders Last 24 Hours: My Active Orders 05/01/17 20:13 Resuscitation Status Routine 05/01/17 21:18 Patient Status [ADT] Routine Ambulate [RC] QID Height and Weight [RC] DAILY Intake and Output [RC] QSHIFT Notify Provider Consults [RC] ASDIRECTED Notify Provider Vital Signs [RC] ASDIRECTED Oxygen Therapy [RC] PRN Peripheral IV Care [RC] . DIRECTED Up With Assistance [RC] ASDIRECTED Up to Chair [RC] QID VTE/DVT Education [RC] Per Unit Routine Vital Signs [RC] Q4H Consult to Physician [CONS] Routine Acetaminophen [Tylenol] 650 mg PO Q4H PRN Docusate Sodium [Colace] 100 mg PO BID PRN Magnesium Hydroxide [Milk of Magnesia] 30 ml PO Q12H PRN Ondansetron [Zofran] 4 mg IV Q4H PRN Polyethylene Glycol 3350 [MiraLAX] 17 gm PO DAILY PRN Sodium Chloride 0.9% [Saline Flush] 10 ml FLUSH ASDIRECTED PRN oxyCODONE 5 mg PO Q4H PRN Peripheral IV Insertion Adult [OM.PC] Routine 05/01/17 Dinner Regular Diet [DIET] 05/02/17 09:00 Pantoprazole [ProTONIX IV] 40 mg IV Q12H 05/02/17 09:30 Pimecrolimus [Elidel] 0 gm TOP DAILY 05/02/17 10:00 Magnesium Sulfate/Water [Magnesium Sulfate 2 GM in Water 50 ML] 2 gm Premix Bag 1 bag IV Q6H 05/02/17 10:46 Cardiac Monitoring Discontinue [RC] Click to Edit 05/02/17 14:56 Convert IV to Saline Lock [OM.PC] Routine 05/02/17 17:00 BASIC METABOLIC PANEL,BMP [CHEM] Stat 05/02/17 21:00 Enoxaparin [Lovenox] 40 mg SUBCUT Q24H 05/02/17 Lunch Regular Diet [DIET] 05/03/17 05:00 BASIC METABOLIC PANEL,BMP [CHEM] Timed MAGNESIUM [CHEM] Timed - Plan Plan:: ASSESSMENT AND PLAN HYPERKALEMIA-significantly improved from admission with current management, not yet within normal range -Kayexalate 15 g given this morning -Recheck potassium level later this evening and again in a.m. -Discontinue cardiac monitoring HYPONATREMIA-improved with hydration -Saline lock IV ACUTE KIDNEY INJURY-at baseline has chronic kidney disease stage III. Likely secondary to intravascular volume depletion from dehydration. Sodium level improved with IV hydration -Saline lock IV -Recheck creatinine later tonight and again in a.m. PROBABLE GASTRITIS-no evidence of significant inflammation identified on EGD, abdominal pain and nausea have improved significantly -Protonix 40 mg by mouth daily DEHYDRATION-resolved MAINTENANCE ISSUES -DVT prophylaxis; Lovenox 40 mg subcutaneous daily -GI prophylaxis; Protonix as above -Osorio catheter; not indicated -Nutrition; regular diet, nothing by mouth after midnight -Nicotine dependence; not required CODE STATUS-FULL CODE ADMISSION STATUS-patient will be admitted to inpatient status, expect at least a 2 night hospital stay for evaluation and management of problems as outlined above. At the time of this admission I do not reasonably expected evaluation and management of this problem will require more than a 96 hour hospital stay. DISPOSITION-anticipate discharge to home after the hospital stay. PRIMARY CARE PROVIDER-Dr. Cherry
[2017-05-02] MEDS: Docusate Sodium 100 MG Cap PO PRN ×2 (15:38→20:32)
[2017-05-02] MEDS ORDERED: Enoxaparin 40 MG/0.4 ML Syringe SUBCUT SCH (21:00)
[2017-05-02] MEDS ORDERED: diphenhydrAMINE 25 MG Cap PO ONE (22:04)
[2017-05-03] MEDS ORDERED: Sodium Polystyrene Sulfonate 15 GM/60 ML Susp 60 ML Bot PO ONE (06:11)
[2017-05-03] MEDS: Levothyroxine 100 MCG Tab PO SCH (07:34)
[2017-05-03 07:44] VITALS: BP 126/70
[2017-05-03] MEDS ORDERED: Sodium Chloride 0.9% 1,000 ML IV SCH (08:45)
--- NOTE | 2017-05-03 08:49 | PCM.DCSUM1 ---
Discharge Summary - Hospital Course Brief History: Ms. Webber is a 72-year-old woman who was admitted through the emergency department with weakness, nausea, epigastric abdominal discomfort, hyperkalemia, hyponatremia, dehydration, and acute kidney injury. - Discharge Data Discharge Date: 05/03/17 Discharge Disposition: Home, Self-Care 01 Condition: Stable - Discharge Diagnosis/Problem(s) (1) CKD (chronic kidney disease) stage 3, GFR 30-59 ml/min SNOMED Code(s): 939789596 ICD Code: N18.3 - CHRONIC KIDNEY DISEASE, STAGE 3 (MODERATE) Status: Acute Current Visit: Yes (2) Dehydration SNOMED Code(s): 36937363 ICD Code: E86.0 - DEHYDRATION Status: Acute Current Visit: Yes (3) Adrenal insufficiency SNOMED Code(s): 579442100 ICD Code: E27.40 - UNSPECIFIED ADRENOCORTICAL INSUFFICIENCY Status: Acute Current Visit: Yes (4) Hyperkalemia SNOMED Code(s): 28247289 ICD Code: E87.5 - HYPERKALEMIA Status: Acute Current Visit: Yes (5) Hyponatremia SNOMED Code(s): 35613332 ICD Code: E87.1 - HYPO-OSMOLALITY AND HYPONATREMIA Status: Acute Current Visit: Yes - Patient Summary/Data Consults: Consultations 05/01/17 21:18 Consult to Physician [CONS] Routine Consulting Provider: Alexey Cardona Call Completed to Consulting Physician: Yes Reason for Consult: Epigastric abdominal pain, history of gastritis Hospital Course: Ms. Webber is a 72-year-old woman was admitted through the emergency department with a one-week history of progressive weakness, nausea, and epigastric abdominal discomfort. Evaluation in the emergency department showed evidence of acute on chronic kidney injury with a potassium of 7.6, hyponatremia, and hypomagnesemia. On admission she was given IV fluids as well as Kayexalate. Protonix 40 mg IV twice daily and anti-medic therapy. By the following morning she was feeling improved her sodium level had improved and her potassium level also had improved but not normalized. On review of history she's had 2 previous episodes with similar symptoms and laboratory findings. These episodes occurred in early January when she was found to have acute cholecystitis and underwent a cholecystectomy. She returned at the end of January with similar symptoms and laboratory findings that improved with hydration. Over the past 2 months she felt like she was slowly regaining some strength, but in the week prior to admission developed recurrent symptoms. Evaluation in the emergency department showed no evidence of underlying infection. Medications were reviewed and there were no obvious causes identified to explain her current symptoms and findings. She was seen and evaluated by Dr. Cardona from surgery department, EGD was performed which showed mild plaquing in the stomach, biopsies were obtained and are pending at the time of transfer. Her potassium level remained elevated through the rest of her hospital stay in the range of 5.5-6.0 despite additional doses of Kayexalate. On the morning of transfer symptoms and findings were reviewed with the rehabilitation aide contact acid plant operator at [facility] in [facility]. He was concerned that she may have adrenal insufficiency causing current symptoms and laboratory findings. Prior to transfer was given 0.2 mg of fludrocortisone orally and restarted on IV fluids. She will be transferred via [facility] for further subspecialty evaluation and management. - Patient Instructions Diet: Usual Diet as Tolerated Activity: As Tolerated Other/Special Instructions: Patient will be transferred via [facility] to [facility] in [facility] for further subspecialty evaluation and management. - Discharge Plan Home Medications: Home Meds Fexofenadine HCl 180 mg PO DAILY 07/16/15 [History] metroNIDAZOLE [metroNIDAZOLE 0.75% Gel] 45 gm TOP ASDIRECTED 07/16/15 [History] Levothyroxine [Synthroid] 100 mcg PO DAILY@0730 #90 tablet 02/28/17 [Rx] Pimecrolimus [Elidel] 1 dose TOP DAILY 05/01/17 [History] Referrals: Bacilio Cherry MD [Primary Care Provider] - 05/07/17 10:30 am - Patient Data Vitals - Most Recent: Last Vital Signs Temp 97.7 F 05/03/17 07:41 Pulse 80 05/03/17 07:41 Resp 14 05/03/17 07:41 BP 126/70 05/03/17 07:41 Pulse Ox 98 05/03/17 04:00 Weight - Most Recent: 137 lb 6 oz I&O - Last 24 hours: Intake & Output 05/02/17 05/03/17 05/03/17 22:59 06:59 14:59 Intake Total 1625 Output Total 2100 1350 300 Balance -475 -1350 -300 Lab Results - Last 24 hrs: Laboratory Results - last 24 hr 05/02/17 05/03/17 Range/Units 16:58 04:30 Sodium 129 L 132 L (140-148) mmol/L Potassium 5.4 H 6.0 H (3.6-5.2) mmol/L Chloride 102 102 (100-108) mmol/L Carbon Dioxide 22 22 (21-32) mmol/L Anion Gap 10.4 14.0 (5.0-14.0) mmol/L BUN 17 12 (7-18) mg/dL Creatinine 1.0 1.0 (0.6-1.0) mg/dL Est Cr Clr Drug Dosing 50.65 51.49 mL/min Estimated GFR (MDRD) 55 L 55 L (>60) Glucose 89 85 (74-106) mg/dL Calcium 8.5 9.0 (8.5-10.1) mg/dL Magnesium 2.0 (1.8-2.4) mg/dL Med Orders - Current: Current Medications Acetaminophen (Tylenol) 650 mg PO Q4H PRN PRN Reason: Pain (Mild 1-3)/fever Docusate Sodium (Colace) 100 mg PO BID PRN PRN Reason: Constipation Last Admin: 05/02/17 20:32 Dose: 100 mg Enoxaparin Sodium (Lovenox) 40 mg SUBCUT Q24H [facility] Last Admin: 05/02/17 21:08 Dose: 40 mg Fludrocortisone Acetate (Florinef) 0.2 mg PO ONETIME ONE Stop: 05/03/17 08:30 Sodium Chloride (Normal Saline) 1,000 mls @ 125 mls/hr IV ASDIRECTED [facility] Levothyroxine Sodium (Synthroid) 100 mcg PO DAILY@0730 [facility] Last Admin: 05/03/17 07:34 Dose: 100 mcg Loratadine (Claritin) 10 mg PO DAILY [facility] Last Admin: 05/02/17 10:35 Dose: 10 mg Magnesium Hydroxide (Milk Of Magnesia) 30 ml PO Q12H PRN PRN Reason: Constipation Last Admin: 05/03/17 04:45 Dose: 30 ml Metronidazole (Metronidazole 0.75% Gel) 45 gm TOP ASDIRECTED [facility] Ondansetron HCl (Zofran) 4 mg IV Q4H PRN PRN Reason: Nausea/Vomiting Oxycodone HCl (Oxycodone) 5 mg PO Q4H PRN PRN Reason: Pain (moderate 4-6) Last Admin: 05/01/17 22:05 Dose: 5 mg Pantoprazole Sodium (Protonix Iv) 40 mg IV Q12H [facility] Stop: 05/03/17 09:01 Last Admin: 05/02/17 21:08 Dose: 40 mg Pimecrolimus (Elidel) 0 gm TOP DAILY [facility] Last Admin: 05/02/17 10:34 Dose: 1 applic Polyethylene Glycol (Miralax) 17 gm PO DAILY PRN PRN Reason: Constipation Last Admin: 05/03/17 07:39 Dose: 17 gm Sodium Chloride (Saline Flush) 10 ml FLUSH ASDIRECTED PRN PRN Reason: Keep Vein Open Discontinued Medications Diphenhydramine HCl (Benadryl) 25 mg PO ONETIME ONE Stop: 05/02/17 22:05 Last Admin: 05/02/17 22:39 Dose: 25 mg Enoxaparin Sodium (Lovenox) 40 mg SUBCUT DAILY [facility] Last Admin: 05/01/17 22:04 Dose: 40 mg Fentanyl (Sublimaze) Confirm Administered Dose 100 mcg .ROUTE .STK-MED ONE Stop: 05/02/17 09:43 Sodium Chloride (Normal Saline) 1,000 mls @ 250 mls/hr IV ASDIRECTED [facility] Last Admin: 05/01/17 18:39 Dose: 250 mls/hr Sodium Chloride (Normal Saline) 500 mls @ 250 mls/hr IV .BOLUS [facility] Stop: 05/02/17 01:19 Last Admin: 05/01/17 23:42 Dose: 250 mls/hr Sodium Chloride (Normal Saline) 1,000 mls @ 125 mls/hr IV ASDIRECTED [facility] Last Admin: 05/02/17 10:37 Dose: 125 mls/hr Magnesium Sulfate 2 gm/ Premix 50 mls @ 25 mls/hr IV Q6H [facility] Stop: 05/02/17 17:59 Last Admin: 05/02/17 15:35 Dose: 25 mls/hr Sodium Chloride (Normal Saline) 1,000 mls @ 500 mls/hr IV ASDIRECTED [facility] Stop: 05/02/17 10:01 Magnesium Oxide (Magnesium Oxide) 400 mg PO BID [facility] Last Admin: 05/02/17 12:48 Dose: Not Given Pantoprazole Sodium (Protonix Iv) 40 mg IV Q12H [facility] Last Admin: 05/01/17 22:05 Dose: 40 mg Pantoprazole Sodium (Protonix) 40 mg PO BIDAC [facility] Propofol (Diprivan 20 Ml) Confirm Administered Dose 200 mg .ROUTE .STK-MED ONE Stop: 05/02/17 09:43 Sodium Polystyrene Sulfonate (Kayexalate) 15 gm PO ONETIME ONE Stop: 05/01/17 17:44 Last Admin: 05/01/17 18:43 Dose: Not Given Sodium Polystyrene Sulfonate (Kayexalate) 45 gm PO ONETIME ONE Stop: 05/01/17 17:58 Last Admin: 05/01/17 18:41 Dose: 45 gm Sodium Polystyrene Sulfonate (Kayexalate) 15 gm PO ONETIME ONE Stop: 05/02/17 09:01 Last Admin: 05/02/17 10:36 Dose: 15 gm Sodium Polystyrene Sulfonate (Kayexalate) 15 gm PO ONETIME ONE Stop: 05/02/17 17:52 Last Admin: 05/02/17 18:42 Dose: 15 gm Sodium Polystyrene Sulfonate (Kayexalate) 30 gm PO ONETIME ONE Stop: 05/03/17 06:12 Last Admin: 05/03/17 07:35 Dose: 30 gm *Q Meaningful Use (DIS) - VTE *Q VTE Criteria *Q: - Stroke *Q Stroke Criteria *Q: - AMI *Q AMI Criteria *Q:
[2017-05-03] MEDS: Loratadine 10 MG Tab PO SCH (08:57)
[2017-05-03] MEDS: Pantoprazole 40 MG Vial IV SCH (08:58)
[2017-05-03] MEDS ORDERED: Fludrocortisone 0.1 MG Tab PO ONE (09:00)
[2017-05-03] MEDS ORDERED: Pantoprazole 40 MG Tab.CR PO SCH (16:30)
== END 2017-05-03 09:30 | DRG 644 ==
LOC: JP.ED 16:28 → JP.MS 20:11
PROVIDERS: ADMIT Hospitalist; ATTEND Hospitalist
PROC: 0DB78ZX Excision of Stomach, Pylorus, Via Natural or Artificial Opening Endoscopic, Diagnostic (ICD-10-PCS; principal; 2017-05-02)
DX: E27.40 Unspecified adrenocortical insufficiency (principal); E87.1 Hypo-osmolality and hyponatremia; N17.9 Acute kidney failure, unspecified; E87.5 Hyperkalemia; E86.0 Dehydration; N18.3 Chronic kidney disease, stage 3 (moderate); E03.9 Hypothyroidism, unspecified; Z87.891 Personal history of nicotine dependence; R53.1 Weakness; R10.13 Epigastric pain; R11.0 Nausea; E83.42 Hypomagnesemia; M19.90 Unspecified osteoarthritis, unspecified site; H54.7 Unspecified visual loss; Z87.440 Personal history of urinary (tract) infections; Z88.8 Allergy status to other drugs, medicaments and biological substances
CPT/HCPCS: 36415; 80053; 85025; 93005; 96360; 99285; A9270; J7040; 80048; 83735; 88305; 93010; 99284; C9113; J1650; J2704; J3010; J3475

== ENCOUNTER 2019-10-18 11:26 | Emergency (ER) | payer MEDICARE, OTHER ==
[2019-10-18 11:48] VITALS: BP 150/90; PULSE 81
--- NOTE | 2019-10-18 12:25 | EDM.PDOC ---
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 She took extra hydrocortisone yesterday and felt better and her diarrhea has been gone since. She called her intern architect's office today and was told she had to come right to the ER. There has not been any fever, known exposures, or blood in her stool. She is not dizzy with standing. Her fatigue seems worse in the mornings. Onset: Gradual Onset Date: 08/19/19 Duration: Week(s):, Constant Location: Reports: Generalized Quality: Reports: Other (no pain reported) Severity: Moderate Improves with: Reports: Rest Worsens with: Reports: Movement (exertion) Context: Reports: Other (see HPI) Associated Symptoms: Reports: Other (diarrhea until yesterday x one month.). 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 (see below) (See HPI) - Related Data Allergies Allergy/AdvReac Type Severity Reaction Status Date / Time benzocaine Allergy Itching Verified 05/01/17 17:02 tramadol Allergy Hives Verified 05/01/17 17:02 omeprazole AdvReac Nausea Verified 05/01/17 17:02 Home Meds: Home Meds Fexofenadine HCl 180 mg PO DAILY 07/16/15 [History] metroNIDAZOLE [metroNIDAZOLE 0.75% Gel] 45 gm TOP ASDIRECTED 07/16/15 [History] Levothyroxine [Synthroid] 100 mcg PO DAILY@0730 #90 tablet 02/28/17 [Rx] Biotin 5 mg PO BID 10/18/19 [History] Calcium Citrate 600 mg PO BID 10/18/19 [History] Cholecalciferol (Vitamin D3) [Vitamin D3] 2,000 unit PO DAILY 10/18/19 [History] Cyanocobalamin (Vitamin B12) [Vitamin B12] 0 unit INJECT ASDIRECTED 10/18/19 [ History] Fludrocortisone [Florinef] 0.5 tab PO DAILY 10/18/19 [History] Fluorometholone 1 drop EYEBOTH BID 10/18/19 [History] Hydrocortisone [Cortef] 5 mg PO DAILY 10/18/19 [History] Hydrocortisone [Cortef] 10 mg PO ACBREAKFAST 10/18/19 [History] Magnesium Oxide 400 mg PO DAILY 10/18/19 [History] cycloSPORINE [Restasis Multidose] 1 drop EYEBOTH BID 10/18/19 [History] hydrOXYzine pamoate [Hydroxyzine Pamoate] 25 mg PO TID PRN 10/18/19 [History] Past Medical History HEENT History: Reports: Impaired Vision Cardiovascular History: Reports: None Respiratory History: Reports: None Gastrointestinal History: Reports: Chronic Diarrhea, GERD Genitourinary History: Reports: UTI, 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 Right ulnar nerve transposition. Bunion removal to left foot. Neurological History: Reports: Other (See Below) Other Neuro History: "Nerve pain to right arm". Psychiatric History: Reports: Anxiety, Depression Endocrine/Metabolic History: Reports: Hypothyroidism Hematologic History: Reports: Anesthesia Reaction Immunologic History: Reports: None Oncologic (Cancer) History: Reports: None Dermatologic History: Reports: Other (See Below) Other Dermatologic History: DERMATITIS - Infectious Disease History Infectious Disease History: Reports: Chicken Pox, Herpes, Measles - Past Surgical History Head Surgeries/Procedures: Reports: None HEENT Surgical History: Reports: Tonsillectomy GI Surgical History: Reports: Appendectomy, Cholecystectomy, Colonoscopy Other GI Surgeries/Procedures: erick 02/04/17 Musculoskeletal Surgical History: Reports: Arthroscopic Knee, Arthroscopic Procedure, Carpal Tunnel, Nerve Relocation, Other (See Below) Other Musculoskeletal Surgeries/Procedures:: ELBOW ULNAR NERVE REPAIR Social & Family History - Family History Family Medical History: Noncontributory Cardiac: Reports: CAD Oncologic: Reports: Breast, Lung - Tobacco Use Smoking Status *Q: Never Smoker - Caffeine Use Caffeine Use: Reports: Coffee - Recreational Drug Use Recreational Drug Use: No ED ROS GENERAL - Review of Systems Review Of Systems: See Below Constitutional: Reports: Fatigue HEENT: Reports: No Symptoms Respiratory: Reports: No Symptoms Cardiovascular: Reports: No Symptoms Endocrine: Reports: No Symptoms GI/Abdominal: Reports: Diarrhea (until yesterday x one month) : Reports: No Symptoms Musculoskeletal: Reports: No Symptoms Skin: Reports: No Symptoms Neurological: Reports: No Symptoms Psychiatric: Reports: No Symptoms ED EXAM, GENERAL - Physical Exam Exam: See Below Exam Limited By: No Limitations General Appearance: Alert, WD/WN, No Apparent Distress Eye Exam: Bilateral Eye: Normal Inspection Ears: Normal External Exam, Normal Canal, Hearing Grossly Normal, Normal TMs Ear Exam: Bilateral Ear: Auricle Normal, Canal Normal, TM normal Nose: Normal Inspection, No Blood Throat/Mouth: Normal Inspection, Normal Lips, Normal Oropharynx, Normal Voice, No Airway Compromise Head: Atraumatic, Normocephalic Neck: Normal Inspection Respiratory/Chest: No Respiratory Distress, Lungs Clear, Normal Breath Sounds, No Accessory Muscle Use Cardiovascular: Regular Rate, Rhythm, No Edema GI/Abdominal: Normal Bowel Sounds, Soft, Non-Tender, No Distention Back Exam: Normal Inspection. No: CVA Tenderness (R), CVA Tenderness (L) Extremities: Normal Inspection, Normal Range of Motion, Non-Tender, No Pedal Edema Neurological: Alert, Oriented, CN II-XII Intact, Normal Cognition, No Motor/ Sensory Deficits Psychiatric: Normal Affect, Normal Mood Skin Exam: Warm, Dry, Intact, Normal Color, No Rash Course - Vital Signs Last Recorded V/S: Last Vital Signs Temp 36.8 C 10/18/19 11:44 Pulse 81 10/18/19 11:44 Resp 16 10/18/19 11:44 BP 150/90 H 10/18/19 11:44 Pulse Ox 99 10/18/19 11:44 Orthostatic Blood Pressure [ 124/90 Standing] Orthostatic Blood Pressure [ 124/82 Sitting] Orthostatic Blood Pressure [ 147/80 Supine] - Orders/Labs/Meds Orders: Active Orders 24 hr Category Date Time Status Orthostatic Vital Signs [RC] ASDIRECTED Care 10/18/19 12:09 Active Labs: Laboratory Tests 10/18/19 10/18/19 10/18/19 Range/Units 12:21 12:21 12:31 WBC 7.9 (4.5-11.0) K/uL RBC 4.88 (3.30-5.50) M/uL Hgb 13.9 (12.0-15.0) g/dL Hct 43.3 (36.0-48.0) % MCV 89 (80-98) fL MCH 29 (27-31) pg MCHC 32 (32-36) % Plt Count 265 (150-400) K/uL Sodium 131 L (140-148) mmol/L Potassium 4.5 (3.6-5.2) mmol/L Chloride 96 L (100-108) mmol/L Carbon Dioxide 26 (21-32) mmol/L Anion Gap 13.5 (5.0-14.0) mmol/L BUN 21 H D (7-18) mg/dL Creatinine 1.0 (0.6-1.0) mg/dL Est Cr Clr Drug Dosing 53.14 mL/min Estimated GFR (MDRD) 55 L (>60) Glucose 89 (74-106) mg/dL Calcium 9.3 (8.5-10.1) mg/dL TSH, Ultra Sensitive 1.204 (0.358-3.740) uIU/mL Urine Color (YELLOW) Urine Appearance (CLEAR) Urine pH (5.0-8.0) Ur Specific [place] (1.008-1.030) Urine Protein (NEGATIVE) mg/dL Urine Glucose (UA) (NEGATIVE) mg/dL Urine Ketones (NEGATIVE) mg/dL Urine Occult Blood (NEGATIVE) Urine Nitrite (NEGATIVE) Urine Bilirubin (NEGATIVE) Urine Urobilinogen (0.2-1.0) EU/dL Ur Leukocyte Esterase (NEGATIVE) Urine RBC (0-5) Urine WBC (0-5) Ur Epithelial Cells Amorphous Sediment Urine Bacteria Urine Mucus 10/18/19 Range/Units 12:49 WBC (4.5-11.0) K/uL RBC (3.30-5.50) M/uL Hgb (12.0-15.0) g/dL Hct (36.0-48.0) % MCV (80-98) fL MCH (27-31) pg MCHC (32-36) % Plt Count (150-400) K/uL Sodium (140-148) mmol/L Potassium (3.6-5.2) mmol/L Chloride (100-108) mmol/L Carbon Dioxide (21-32) mmol/L Anion Gap (5.0-14.0) mmol/L BUN (7-18) mg/dL Creatinine (0.6-1.0) mg/dL Est Cr Clr Drug Dosing mL/min Estimated GFR (MDRD) (>60) Glucose (74-106) mg/dL Calcium (8.5-10.1) mg/dL TSH, Ultra Sensitive (0.358-3.740) uIU/mL Urine Color Yellow (YELLOW) Urine Appearance Clear (CLEAR) Urine pH 5.5 (5.0-8.0) Ur Specific [place] 1.010 (1.008-1.030) Urine Protein Negative (NEGATIVE) mg/dL Urine Glucose (UA) Negative (NEGATIVE) mg/dL Urine Ketones Negative (NEGATIVE) mg/dL Urine Occult Blood Negative (NEGATIVE) Urine Nitrite Negative (NEGATIVE) Urine Bilirubin Negative (NEGATIVE) Urine Urobilinogen 0.2 (0.2-1.0) EU/dL Ur Leukocyte Esterase Negative (NEGATIVE) Urine RBC Not seen (0-5) Urine WBC Not seen (0-5) Ur Epithelial Cells Rare Amorphous Sediment Rare Urine Bacteria Not seen Urine Mucus Not seen Departure - Departure Time of Disposition: 13:05 Disposition: Home, Self-Care 01 Condition: Fair Clinical Impression: Juwan disease Fatigue Qualifiers: Fatigue type: other Qualified Code(s): R53.83 - Other fatigue - Discharge Information *PRESCRIPTION DRUG MONITORING PROGRAM REVIEWED*: No *COPY OF PRESCRIPTION DRUG MONITORING REPORT IN PATIENT RJ: No Referrals: Bacilio Cherry MD [Primary Care Provider] - Forms: ED Department Discharge Additional Instructions: Increase your hydrocortisone to 10 mg twice daily. Recheck in the clinic next week. Return as needed. Sepsis Event Note - Evaluation Sepsis Screening Result: No Definite Risk - Focused Exam Vital Signs: Vital Signs Temp Pulse Resp BP Pulse Ox 10/18/19 11:44 36.8 C 81 16 150/90 H 99 10/18/19 11:43 36.8 C 81 16 150/90 H 99 Date Exam was Performed: 10/18/19 Time Exam was Performed: 13:02 - My Orders Last 24 Hours: My Active Orders 10/18/19 12:09 Orthostatic Vital Signs [RC] ASDIRECTED - Assessment/Plan Last 24 Hours: My Active Orders 10/18/19 12:09 Orthostatic Vital Signs [RC] ASDIRECTED
== END 2019-10-18 13:09 | disposition home or self-care (01) ==
LOC: JP.ED 11:26
DX: E27.1 Primary adrenocortical insufficiency (principal); K21.9 Gastro-esophageal reflux disease without esophagitis; E03.9 Hypothyroidism, unspecified; Z88.8 Allergy status to other drugs, medicaments and biological substances; Z88.6 Allergy status to analgesic agent; Z79.899 Other long term (current) drug therapy
CPT/HCPCS: 36415; 80048; 81001; 84443; 84484; 85027; 99282; 99284

== ENCOUNTER 2020-09-15 06:38 | Emergency (ER) | payer MEDICARE, OTHER ==
[2020-09-15] MEDS ORDERED: Sodium Chloride 0.9% 10 ML Syringe FLUSH PRN (06:39)
[2020-09-15 06:45] VITALS: BP 153/90; PULSE 80
[2020-09-15] MEDS ORDERED: Acetaminophen 325 MG Tab PO ONE (06:51)
[2020-09-15] MEDS ORDERED: Ondansetron 4 MG/2 ML SDV IVPUSH ONE (07:16)
--- NOTE | 2020-09-15 07:22 | EDM.PDOC ---
ED HPI GENERAL MEDICAL PROBLEM - General Chief Complaint: General Stated Complaint: REACTION TO INSULIN Time Seen by Provider: 09/15/20 07:05 Source of Information: Reports: Patient, Family History Limitations: Reports: No Limitations - History of Present Illness INITIAL COMMENTS - FREE TEXT/NARRATIVE: 75-year-old female, recently diagnosed with "diabetes" and started on insulin received a Covid vaccine yesterday, her second one. She woke up this morning feeling horrible, lower abdominal cramps, diarrhea, nausea with some vomiting. Generalized body aches and weakness, chills and generalized malaise. No rash, no documented fever, no chest pain or shortness of breath. She did not see any blood in the diarrhea. She did give herself her insulin this morning, she thought maybe she was "reacting to the insulin". Onset: Sudden (Fairly sudden onset of symptoms just after waking up this morning) Duration: Hour(s): (2 hours) Associated Symptoms: Reports: Loss of Appetite, Malaise, Nausea/Vomiting, Weakness, Other (Chills but no fever). Denies: Confusion, Chest Pain, Cough, Diaphoresis Headache Pain Score (Numeric/FACES): 7 Abdominal Pain Score (Numeric/FACES): 7 - Related Data Allergies Allergy/AdvReac Type Severity Reaction Status Date / Time benzocaine Allergy Itching Verified 09/15/20 06:44 tramadol Allergy Hives Verified 09/15/20 06:44 omeprazole AdvReac Nausea Verified 09/15/20 06:44 Home Meds: Home Meds Fexofenadine HCl 180 mg PO DAILY 07/16/15 [History] metroNIDAZOLE [metroNIDAZOLE 0.75% Gel] 45 gm TOP ASDIRECTED 07/16/15 [History] Levothyroxine [Synthroid] 100 mcg PO DAILY@0730 #90 tablet 02/28/17 [Rx] Biotin 5 mg PO BID 10/18/19 [History] Calcium Citrate 600 mg PO BID 10/18/19 [History] Cholecalciferol (Vitamin D3) [Vitamin D3] 2,000 unit PO DAILY 10/18/19 [History] Cyanocobalamin (Vitamin B12) [Vitamin B12] 0 unit INJECT ASDIRECTED 10/18/19 [History] Fludrocortisone [Florinef] 0.5 tab PO DAILY 10/18/19 [History] Fluorometholone 1 drop EYEBOTH BID 10/18/19 [History] Hydrocortisone [Cortef] 5 mg PO DAILY 10/18/19 [History] Hydrocortisone [Cortef] 10 mg PO ACBREAKFAST 10/18/19 [History] Magnesium Oxide 400 mg PO DAILY 10/18/19 [History] cycloSPORINE [Restasis Multidose] 1 drop EYEBOTH BID 10/18/19 [History] hydrOXYzine pamoate [Hydroxyzine Pamoate] 25 mg PO TID PRN 10/18/19 [History] Insulin Aspart [NovoLOG] 0 units SQ ASDIRECTED 09/15/20 [History] Insulin Glarg,Human.Rec.Analog [Lantus Solostar] 7 unit SUBCUT DAILY 09/15/20 [History] Past Medical History HEENT History: Reports: Impaired Vision Cardiovascular History: Reports: None Respiratory History: Reports: None Gastrointestinal History: Reports: Chronic Diarrhea, GERD Genitourinary History: Reports: UTI, 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 Right ulnar nerve transposition. Bunion removal to left foot. Neurological History: Reports: Other (See Below) Other Neuro History: "Nerve pain to right arm". Psychiatric History: Reports: Anxiety, Depression Endocrine/Metabolic History: Reports: Diabetes, Type II, Hypothyroidism Hematologic History: Reports: Anesthesia Reaction Immunologic History: Reports: None Oncologic (Cancer) History: Reports: None Dermatologic History: Reports: Other (See Below) Other Dermatologic History: DERMATITIS - Infectious Disease History Infectious Disease History: Reports: Chicken Pox, Herpes, Measles - Past Surgical History Head Surgeries/Procedures: Reports: None HEENT Surgical History: Reports: Cataract Surgery, Tonsillectomy Cardiovascular Surgical History: Reports: None Respiratory Surgical History: Reports: None GI Surgical History: Reports: Appendectomy, Cholecystectomy, Colonoscopy Other GI Surgeries/Procedures: erick 02/04/17 Female Surgical History: Reports: None Endocrine Surgical History: Reports: None Neurological Surgical History: Reports: None Musculoskeletal Surgical History: Reports: Arthroscopic Knee, Arthroscopic Procedure, Carpal Tunnel, Nerve Relocation, Other (See Below) Other Musculoskeletal Surgeries/Procedures:: ELBOW ULNAR NERVE REPAIR Oncologic Surgical History: Reports: None Dermatological Surgical History: Reports: None Social & Family History - Family History Family Medical History: No Pertinent Family History Cardiac: Reports: CAD Oncologic: Reports: Breast, Lung - Tobacco Use Tobacco Use Status *Q: Never Tobacco User - Caffeine Use Caffeine Use: Reports: Coffee - Recreational Drug Use Recreational Drug Use: No ED ROS GENERAL - Review of Systems Review Of Systems: See Below Constitutional: Reports: Chills, Malaise HEENT: Reports: No Symptoms Respiratory: Reports: No Symptoms Cardiovascular: Reports: No Symptoms. Denies: Palpitations GI/Abdominal: Reports: Abdominal Pain (Lower abdomen hurts), Diarrhea, Vomiting : Reports: No Symptoms Skin: Reports: No Symptoms Neurological: Reports: Dizziness. Denies: Confusion, Headache ED EXAM, GENERAL - Physical Exam Exam: See Below Exam Limited By: No Limitations General Appearance: Alert, Mild Distress (Looks pretty uncomfortable) Eye Exam: Bilateral Eye: Normal Inspection Head: Atraumatic Respiratory/Chest: No Respiratory Distress, Lungs Clear Cardiovascular: Regular Rate, Rhythm. No: Tachycardia GI/Abdominal: Normal Bowel Sounds, Tender (Patient is tender to palpation across the lower abdomen, both lower quadrants but especially suprapubic. No significant guarding or rebound) Extremities: Normal Inspection. No: Pedal Edema, Slow Capillary Refill Neurological: Alert, Oriented Psychiatric: Flat Affect Skin Exam: Warm, Dry Course - Vital Signs Last Recorded V/S: Last Vital Signs Temp 97.7 F 09/15/20 06:40 Pulse 80 09/15/20 06:40 Resp 20 09/15/20 06:40 BP 153/90 H 09/15/20 06:40 Pulse Ox 93 L 09/15/20 06:40 - Orders/Labs/Meds Orders: Active Orders 24 hr Category Date Time Status Saline Lock Insert [OM.PC] Routine Oth 09/15/20 06:39 Ordered Labs: Laboratory Tests 09/15/20 09/15/20 09/15/20 Range/Units 06:45 06:55 07:00 WBC 7.0 (4.5-11.0) K/uL RBC 4.78 (3.30-5.50) M/uL Hgb 14.7 (12.0-15.0) g/dL Hct 43.1 (36.0-48.0) % MCV 90 (80-98) fL MCH 31 (27-31) pg MCHC 34 (32-36) % Plt Count 220 (150-400) K/uL Neut % (Auto) 59 (36-66) % Lymph % (Auto) 28 (24-44) % [place] % (Auto) 11 H (2-6) % Eos % (Auto) 2 (2-4) % Baso % (Auto) 0 (0-1) % Sodium 143 (140-148) mmol/L Potassium 3.3 L (3.6-5.2) mmol/L Chloride 101 (100-108) mmol/L Carbon Dioxide 26 (21-32) mmol/L Anion Gap 19.3 H (5.0-14.0) mmol/L BUN 14 (7-18) mg/dL Creatinine 1.1 H (0.6-1.0) mg/dL Est Cr Clr Drug Dosing 45.95 mL/min Estimated GFR (MDRD) 49 L (>60) Glucose 74 (74-106) mg/dL Lactic Acid 2.6 H (0.4-2.0) mmol/L Calcium 9.6 (8.5-10.1) mg/dL Total Bilirubin 0.5 (0.2-1.0) mg/dL AST 26 (15-37) U/L ALT 34 (12-78) U/L Alkaline Phosphatase 66 (46-116) U/L Troponin I (0.000-0.056) ng/mL Total Protein 7.2 (6.4-8.2) g/dL Albumin 4.0 (3.4-5.0) g/dL Globulin 3.2 (2.3-3.5) g/dL Albumin/Globulin Ratio 1.3 (1.2-2.2) Lipase (73-393) U/L 09/15/20 Range/Units 07:00 WBC (4.5-11.0) K/uL RBC (3.30-5.50) M/uL Hgb (12.0-15.0) g/dL Hct (36.0-48.0) % MCV (80-98) fL MCH (27-31) pg MCHC (32-36) % Plt Count (150-400) K/uL Neut % (Auto) (36-66) % Lymph % (Auto) (24-44) % [place] % (Auto) (2-6) % Eos % (Auto) (2-4) % Baso % (Auto) (0-1) % Sodium (140-148) mmol/L Potassium (3.6-5.2) mmol/L Chloride (100-108) mmol/L Carbon Dioxide (21-32) mmol/L Anion Gap (5.0-14.0) mmol/L BUN (7-18) mg/dL Creatinine (0.6-1.0) mg/dL Est Cr Clr Drug Dosing mL/min Estimated GFR (MDRD) (>60) Glucose (74-106) mg/dL Lactic Acid (0.4-2.0) mmol/L Calcium (8.5-10.1) mg/dL Total Bilirubin (0.2-1.0) mg/dL AST (15-37) U/L ALT (12-78) U/L Alkaline Phosphatase (46-116) U/L Troponin I 0.020 (0.000-0.056) ng/mL Total Protein (6.4-8.2) g/dL Albumin (3.4-5.0) g/dL Globulin (2.3-3.5) g/dL Albumin/Globulin Ratio (1.2-2.2) Lipase 186 (73-393) U/L Meds: Medications Discontinued Medications Generic Name Dose Route Start Last Admin Trade Name Freq PRN Reason Stop Dose Admin Acetaminophen 650 mg 09/15/20 06:51 09/15/20 06:57 Acetaminophen 325 Mg Tab PO 09/15/20 06:52 650 mg NOW ONE Administration Fentanyl 50 mcg 09/15/20 07:31 09/15/20 07:36 Fentanyl 100 Mcg/2 Ml Sdv IVPUSH 09/15/20 07:32 50 mcg ONETIME ONE Administration Sodium Chloride 1,000 mls @ 500 mls/hr 09/15/20 07:30 09/15/20 07:25 Normal Saline IV 500 mls/hr ASDIRECTED DENISE Administration Ondansetron HCl 4 mg 09/15/20 07:16 09/15/20 07:24 Ondansetron 4 Mg/2 Ml Sdv IVPUSH 09/15/20 07:17 4 mg ONETIME ONE Administration Sodium Chloride 10 ml 09/15/20 06:39 09/15/20 06:52 Sodium Chloride 0.9% 10 Ml Syringe FLUSH 10 ml ASDIRECTED PRN Administration Keep Vein Open - Re-Assessments/Exams Free Text/Narrative Re-Assessment/Exam: 09/15/20 07:21 CBC, CMP, lipase, troponin and lactic acid were obtained. An IV was started, she was given 4 mg of IV Zofran and 500 cc of normal saline an hour. 09/15/20 07:57 Patient was also given 50 mcg of IV fentanyl. BC is normal, CMP shows some renal insufficiency which is close to her baseline. Lactic acid is just slightly elevated at 2.6, lipase is normal and potassium is 3.3, otherwise all electrolytes are good. Troponin is not elevated. She is resting at this time, she will be reevaluated in the next 30 to 60 minutes. 09/15/20 08:35 Patient slept for half hour, woke up and feels "much better". Symptoms are markedly improved, very little discomfort. She is willing to go home and rest, advance diet slowly, and return if worsening. Departure - Departure Time of Disposition: 08:50 Disposition: Home, Self-Care 01 Clinical Impression: Vaccine reaction Qualifiers: Encounter type: initial encounter Qualified Code(s): T50.Z95A - Adverse effect of other vaccines and biological substances, initial encounter Diarrhea Qualifiers: Diarrhea type: functional diarrhea Qualified Code(s): K59.1 - Functional diarrhea Abdominal pain Qualifiers: Abdominal location: lower abdomen, unspecified Qualified Code(s): R10.30 - Lower abdominal pain, unspecified - Discharge Information Instructions: Diarrhea, Adult Referrals: Bacilio Cherry MD [Primary Care Provider] - Forms: ED Department Discharge Care Plan Goals: Stick with just liquids initially and advance diet slowly today. Increase activity as tolerated and return anytime if you feel you are worsening. Sepsis Event Note (ED) - Evaluation Sepsis Screening Result: No Definite Risk - Focused Exam Vital Signs: Vital Signs Temp Pulse Resp BP Pulse Ox 09/15/20 06:40 97.7 F 80 20 153/90 H 93 L
[2020-09-15] MEDS ORDERED: Sodium Chloride 0.9% 1,000 ML IV SCH (07:30)
[2020-09-15] MEDS ORDERED: fentaNYL 100 MCG/2 ML SDV IVPUSH ONE (07:31)
== END 2020-09-15 08:50 | disposition home or self-care (01) ==
LOC: JP.ED 06:38
DX: K59.1 Functional diarrhea (principal); R10.30 Lower abdominal pain, unspecified; T50.Z95A Adverse effect of other vaccines and biological substances, initial encounter; K21.9 Gastro-esophageal reflux disease without esophagitis; M19.90 Unspecified osteoarthritis, unspecified site; E11.9 Type 2 diabetes mellitus without complications; E03.9 Hypothyroidism, unspecified; Z90.49 Acquired absence of other specified parts of digestive tract; Z88.8 Allergy status to other drugs, medicaments and biological substances; Z79.4 Long term (current) use of insulin; Z79.899 Other long term (current) drug therapy
CPT/HCPCS: 36415; 80053; 83605; 83690; 84484; 85025; 96374; 96375; 99284; 99284-25; A9270-GY; J2405; J3010; J7030

== ENCOUNTER 2021-02-26 19:37 | Emergency (ER) | payer MEDICARE, OTHER ==
[2021-02-26 20:04] VITALS: BP 129/81; PULSE 82
--- NOTE | 2021-02-26 20:42 | EDM.PDOC ---
ED HPI GENERAL MEDICAL PROBLEM - General Chief Complaint: Bite:Animal, Insect Stated Complaint: BEE STING Time Seen by Provider: 02/26/21 20:30 Source of Information: Reports: Patient History Limitations: Reports: No Limitations - History of Present Illness INITIAL COMMENTS - FREE TEXT/NARRATIVE: 75-year-old female was stung by a wasp on the left wrist 12 hours ago. She now has erythema on the flexor surface of the forearm and around the wrist, mild tenderness. No other symptoms, no diffuse rash or shortness of breath. Onset: Gradual Duration: Hour(s): (12 hours) Location: Reports: Upper Extremity, Left Associated Symptoms: Reports: No Other Symptoms Left Lower Arm Pain Score (Numeric/FACES): 5 - Related Data Allergies Allergy/AdvReac Type Severity Reaction Status Date / Time benzocaine Allergy Itching Verified 02/26/21 19:45 tramadol Allergy Hives Verified 02/26/21 19:45 omeprazole AdvReac Nausea Verified 02/26/21 19:45 Home Meds: Home Meds Fexofenadine HCl 180 mg PO DAILY 07/16/15 [History] metroNIDAZOLE [metroNIDAZOLE 0.75% Gel] 45 gm TOP ASDIRECTED 07/16/15 [History] Levothyroxine [Synthroid] 100 mcg PO DAILY@0730 #90 tablet 02/28/17 [Rx] Biotin 5 mg PO BID 10/18/19 [History] Calcium Citrate 600 mg PO BID 10/18/19 [History] Cholecalciferol (Vitamin D3) [Vitamin D3] 2,000 unit PO DAILY 10/18/19 [History] Cyanocobalamin (Vitamin B12) [Vitamin B12] 0 unit INJECT ASDIRECTED 10/18/19 [History] Fludrocortisone [Florinef] 0.5 tab PO DAILY 10/18/19 [History] Fluorometholone 1 drop EYEBOTH BID 10/18/19 [History] Hydrocortisone [Cortef] 5 mg PO DAILY 10/18/19 [History] Hydrocortisone [Cortef] 10 mg PO ACBREAKFAST 10/18/19 [History] Magnesium Oxide 400 mg PO DAILY 10/18/19 [History] cycloSPORINE [Restasis Multidose] 1 drop EYEBOTH BID 10/18/19 [History] hydrOXYzine pamoate [Hydroxyzine Pamoate] 25 mg PO TID PRN 10/18/19 [History] Insulin Aspart [NovoLOG] 0 units SQ ASDIRECTED 09/15/20 [History] Insulin Glarg,Human.Rec.Analog [Lantus Solostar] 7 unit SUBCUT DAILY 09/15/20 [History] Past Medical History HEENT History: Reports: Impaired Vision Cardiovascular History: Reports: None Respiratory History: Reports: None Gastrointestinal History: Reports: Chronic Diarrhea, GERD 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 Right ulnar nerve transposition. Bunion removal to left foot. Neurological History: Reports: Other (See Below) Other Neuro History: "Nerve pain to right arm". Psychiatric History: Reports: Anxiety, Depression Endocrine/Metabolic History: Reports: Diabetes, Type I, Diabetes, Type II, Hypothyroidism Hematologic History: Reports: Anesthesia Reaction Immunologic History: Reports: None Oncologic (Cancer) History: Reports: None Dermatologic History: Reports: Other (See Below) Other Dermatologic History: DERMATITIS - Infectious Disease History Infectious Disease History: Reports: Chicken Pox, Herpes, Measles - Past Surgical History Head Surgeries/Procedures: Reports: None HEENT Surgical History: Reports: Cataract Surgery, Tonsillectomy Cardiovascular Surgical History: Reports: None Respiratory Surgical History: Reports: None GI Surgical History: Reports: Appendectomy, Cholecystectomy, Colonoscopy Other GI Surgeries/Procedures: erick 02/04/17 Female Surgical History: Reports: None Endocrine Surgical History: Reports: None Neurological Surgical History: Reports: None Musculoskeletal Surgical History: Reports: Arthroscopic Knee, Arthroscopic Procedure, Carpal Tunnel, Nerve Relocation, Other (See Below) Other Musculoskeletal Surgeries/Procedures:: ELBOW ULNAR NERVE REPAIR Oncologic Surgical History: Reports: None Dermatological Surgical History: Reports: None Social & Family History - Family History Family Medical History: No Pertinent Family History Cardiac: Reports: CAD Oncologic: Reports: Breast, Lung - Tobacco Use Tobacco Use Status *Q: Former Tobacco User Used Tobacco, but Quit: Yes Month/Year Tobacco Last Used: 30 years ago - Caffeine Use Caffeine Use: Reports: Coffee - Recreational Drug Use Recreational Drug Use: No ED ROS GENERAL - Review of Systems Review Of Systems: See Below Constitutional: Denies: Fever, Chills HEENT: Reports: No Symptoms Respiratory: Denies: Shortness of Breath, Cough Cardiovascular: Denies: Chest Pain GI/Abdominal: Denies: Abdominal Pain, Nausea, Vomiting Musculoskeletal: Reports: No Symptoms Skin: Reports: Erythema Neurological: Reports: No Symptoms ED EXAM, ANIMAL BITE - Physical Exam Exam: See Below Exam Limited By: No Limitations General Appearance: Alert, No Apparent Distress Head: Atraumatic Neck: Non-Tender Respiratory/Chest: Lungs Clear Cardiovascular: Regular Rate, Rhythm. No: Tachycardia Extremities: Other (Left arm has erythema, nonblanching and slightly warm that expands from the wrist up the flexor surface of the forearm to near the wrist, there is slight edema and tenderness.) Neurological: Alert, Oriented, No Motor/Sensory Deficits Psychiatric: Normal Affect, Normal Mood Course - Vital Signs Last Recorded V/S: Last Vital Signs Temp 96.0 F L 02/26/21 20:01 Pulse 82 02/26/21 20:01 Resp 16 02/26/21 20:01 BP 129/81 02/26/21 20:01 Pulse Ox 95 02/26/21 20:01 - Re-Assessments/Exams Free Text/Narrative Re-Assessment/Exam: 02/27/21 01:13 Explained to the patient this is a normal immune response to an insect sting. If she develops shortness of breath or diffuse rash, she should return for recheck but conservative therapy to the local reaction is all that is needed such as cool compresses and anti-inflammatories. She will return if worsening or concerns. Departure - Departure Time of Disposition: 20:56 Disposition: Home, Self-Care 01 Clinical Impression: Bee sting reaction Qualifiers: Encounter type: initial encounter Injury intent: accidental or unintentional Qualified Code(s): T63.441A - Toxic effect of venom of bees, accidental (unintentional), initial encounter - Discharge Information Instructions: Insect Bite, Adult, [id number] Referrals: Bacilio Cherry MD [Primary Care Provider] - Forms: ED Department Discharge Care Plan Goals: Cool compresses to the area will be helpful along with an ibuprofen or naproxen if able to take those types of medications. Recheck in the next couple of days if worsening or concerns. Sepsis Event Note (ED) - Evaluation Sepsis Screening Result: No Definite Risk - Focused Exam Vital Signs: Vital Signs Temp Pulse Resp BP Pulse Ox 02/26/21 20:01 96.0 F L 82 16 129/81 95 02/26/21 19:54 96.0 F L 82 16 129/81 95
== END 2021-02-26 20:56 | disposition home or self-care (01) ==
LOC: JP.ED 19:37
DX: T63.441A Toxic effect of venom of bees, accidental (unintentional), initial encounter (principal); E03.9 Hypothyroidism, unspecified; E13.9 Other specified diabetes mellitus without complications; Z88.8 Allergy status to other drugs, medicaments and biological substances; Z88.5 Allergy status to narcotic agent; Z79.899 Other long term (current) drug therapy
CPT/HCPCS: 99282

== ENCOUNTER 2021-11-15 07:52 | Emergency (ER) | payer MEDICARE ==
[2021-11-15] MEDS ORDERED: Ketorolac 30 MG/ML SDV IVPUSH ONE (08:23)
[2021-11-15] MEDS ORDERED: Sodium Chloride 0.9% 10 ML Syringe FLUSH PRN (08:23)
[2021-11-15] MEDS ORDERED: Lactated Ringers 1,000 ML IV ONE (08:23)
[2021-11-15] MEDS ORDERED: Ondansetron 4 MG/2 ML SDV IVPUSH ONE (08:23)
[2021-11-15] MEDS ORDERED: Acetaminophen 325 MG Tab PO ONE (08:26)
[2021-11-15 11:21] VITALS: BP 108/54; PULSE 78
== END 2021-11-15 12:15 | disposition home or self-care (01) ==
LOC: JP.ED 07:52
DX: M79.10 Myalgia, unspecified site (principal); T50.Z95A Adverse effect of other vaccines and biological substances, initial encounter; K21.9 Gastro-esophageal reflux disease without esophagitis; E10.9 Type 1 diabetes mellitus without complications; E03.9 Hypothyroidism, unspecified; M19.90 Unspecified osteoarthritis, unspecified site; Z88.5 Allergy status to narcotic agent; Z88.8 Allergy status to other drugs, medicaments and biological substances; Z79.899 Other long term (current) drug therapy
CPT/HCPCS: 36415; 80053; 83605; 85025; 86140; 96374; 96375; 99281; 99284-25; A9270-GY; J1885; J2405; J3490; J7120

== ENCOUNTER 2022-12-11 22:01 | Emergency (ER) | payer MEDICARE, OTHER ==
[2022-12-11 22:20] VITALS: BP 146/79; PULSE 61
== END 2022-12-11 23:20 | disposition home or self-care (01) ==
LOC: JP.ED 22:01
DX: E10.649 Type 1 diabetes mellitus with hypoglycemia without coma (principal); K21.9 Gastro-esophageal reflux disease without esophagitis; E03.9 Hypothyroidism, unspecified; Z88.8 Allergy status to other drugs, medicaments and biological substances; Z79.899 Other long term (current) drug therapy
CPT/HCPCS: 82947; 99284

== ENCOUNTER 2023-01-30 09:18 | Day surgery (SDC) | payer MEDICARE, OTHER ==
[~2023-01-30 09:18] MED LIST: Midazolam 1 MG/ML 2 ML SDV ONE; Propofol 200 MG/20 ML SDV ONE; fentaNYL 100 MCG/2 ML SDV ONE
[2023-01-30] MEDS ORDERED: Hydrocortisone Sodium Succinate 100 MG/2 ML SDV IVPUSH PRN (10:00)
[2023-01-30] MEDS ORDERED: Sodium Chloride 0.9% 1,000 ML IV SCH (10:00)
[2023-01-30] MEDS ORDERED: Lidocaine 1% w/EPINEPHrine 50 ML, Sodium Bicarbonate 5 MEQ in Sodium Chloride 0.9% 950 ML INJECT ONE ×2 (10:45→11:00)
[2023-01-30] MEDS ORDERED: Sodium Chloride 0.9% 10 ML ONE (11:07)
[2023-01-30] MEDS ORDERED: Sodium Tetradecyl Sulfate 1% 20 MG/2 ML SDV ONE (11:07)
[2023-01-30] MEDS ORDERED: Lidocaine 1% with EPINEPHrine 1:100,000 50 ML MDV ONE (11:08)
[2023-01-30] MEDS ORDERED: Propofol 200 MG/20 ML SDV ONE (11:37)
[2023-01-30] MEDS ORDERED: Lactated Ringers 1,000 ML ONE (11:43)
[2023-01-30 12:51] VITALS: BP 114/79; PULSE 66
== END 2023-01-30 13:02 | disposition home or self-care (01) ==
LOC: JP.SDS 09:18
PROVIDERS: ATTEND Surgery
DX: I87.2 Venous insufficiency (chronic) (peripheral) (principal); E78.5 Hyperlipidemia, unspecified; E03.9 Hypothyroidism, unspecified; N18.30 Chronic kidney disease, stage 3 unspecified; Z88.8 Allergy status to other drugs, medicaments and biological substances; Z88.5 Allergy status to narcotic agent
CPT/HCPCS: 76998; J1642; J1720; J2250; J2704; J3010; J3490; J7030; J7120

== ENCOUNTER 2023-05-04 14:34 | Emergency (ER) | payer MEDICARE, OTHER ==
[2023-05-04 14:59] VITALS: BP 137/86; PULSE 92
[2023-05-04 15:07] LABS: APPEARANCE,URINE TURBID (CLEAR); BILIRUBIN,URINE NEGATIVE (NEGATIVE); COLOR,URINE YELLOW (YELLOW); GLUCOSE,URINE NEGATIVE (NEGATIVE); KETONES,URINE NEGATIVE (NEGATIVE); LEUKOCYTE ESTERASE,URINE LARGE (NEGATIVE); NITRITE,URINE NEGATIVE (NEGATIVE); OCCULT BLOOD,URINE MODERATE (NEGATIVE); PH,URINE 5.5 (5.0-8.0); PROTEIN,URINE TRACE mg/dL (NEGATIVE); UROBILINOGEN,URINE 0.2 EU/dL (0.2-1.0)
[2023-05-04 15:08] LABS: AMORPHOUS SEDIMENT,URINE NOT SEEN; BACTERIA,URINE MANY; EPITHELIAL CELLS,URINE FEW; MUCUS,URINE MODERATE; WBC,URINE 75-100 (0-5)
== END 2023-05-04 15:34 | disposition home or self-care (01) ==
LOC: JP.ED 14:34
DX: N39.0 Urinary tract infection, site not specified (principal); E10.9 Type 1 diabetes mellitus without complications; E03.9 Hypothyroidism, unspecified; Z88.4 Allergy status to anesthetic agent; Z88.8 Allergy status to other drugs, medicaments and biological substances; Z88.5 Allergy status to narcotic agent; Z79.899 Other long term (current) drug therapy; Z79.4 Long term (current) use of insulin; Z87.891 Personal history of nicotine dependence
CPT/HCPCS: 81001; 87086; 87088; 87186; 99283

== ENCOUNTER 2023-06-11 12:27 | Emergency (ER) | payer MEDICARE, OTHER ==
[2023-06-11] MEDS ORDERED: Ondansetron 4 MG/2 ML SDV IVPUSH ONE (13:57)
[2023-06-11] MEDS ORDERED: Sodium Chloride 0.9% 1,000 ML IV SCH (14:00)
[2023-06-11 14:07] LABS: CORONAVIRUS COVID-19 NAA NEGATIVE (NEGATIVE); INFLUENZA A NAA NEGATIVE (NEGATIVE); INFLUENZA B NAA NEGATIVE (NEGATIVE); RESPIRATORY SYNCYTIAL VIR NAA NEGATIVE (NEGATIVE)
[2023-06-11 14:16] LABS: BASE EXCESS VENOUS 1.4 mm/L; BASOPHILS ABSOLUTE AUTO 0.05 K/uL (0.00-0.10); BICARBONATE,VENOUS 26.1 mmol/L; CARBOXYHEMOGLOBIN 1.6 % (0.0-1.6); EOSINOPHILS ABSOLUTE AUTO 0.24 K/uL (0.00-0.40); EOSINOPHILS PERCENT AUTO 4.8 % (0.0-5.4); IMMATURE GRAN PERCENT AUTO 0.4 % (0.0-0.7); LYMPHOCYTES ABSOLUTE AUTO 1.41 K/uL (0.8-3.3); MEAN CORPUSCULAR HEMOGLOBIN 30.4 pg (31.6-35.5); MEAN CORPUSCULAR HGB CONC 33.3 g/dL (31.6-35.5); MEAN CORPUSCULAR VOLUME 91.1 fL (81.4-99.0); METHEMOGLOBIN 0.9 %; MONOCYTES ABSOLUTE AUTO 0.35 K/uL (0.20-0.90); MONOCYTES PERCENT AUTO 6.9 % (3.3-12.6); NEUTROPHILS ABSOLUTE AUTO 2.97 K/uL (1.0-7.6); NEUTROPHILS PERCENT AUTO 58.9 % (40.0-78.1); O2 SATURATION VENOUS 49.2; PCO2 VENOUS 43.8 mm/Hg; PH,VENOUS 7.394 (7.350-7.450); PLATELET COUNT,PLT 202 K/uL (130-375); RED BLOOD CELL COUNT 4.61 M/uL (3.77-5.24); TOTAL HEMOGLOBIN 14.5 g/dL (12.0-16.0)
[2023-06-11 14:17] LABS: PO2 VENOUS 30.7 mm/Hg
[2023-06-11 14:18] LABS: IMMATURE GRAN ABSOLUTE AUTO 0.02 K/uL (0.00-0.23)
[2023-06-11 14:39] LABS: ALANINE AMINOTRANSFERASE,ALT 34 U/L (12-78); ALKALINE PHOSPHATASE 76 U/L (46-116); ASPARTATE AMNIOTRANSFERASE,AST 63 U/L (15-37); BILIRUBIN TOTAL 0.7 mg/dL (0.2-1.0); BLOOD UREA NITROGEN,BUN 16 mg/dL (7-18); CALCIUM 9.1 mg/dL (8.5-10.1); CARBON DIOXIDE,CO2 25 mmol/L (21-32); CHLORIDE,CL 96 mmol/L (100-108); CREATININE 1.1 mg/dL (0.6-1.0); EST CRCL DRUG DOSING (CG) 43.89 mL/min; ESTIMATED GFR 52 mL/min (>60); GLUCOSE RANDOM 136 mg/dL (74-106); POTASSIUM,K 3.6 mmol/L (3.6-5.2); PROTEIN TOTAL,TP 7.9 g/dL (6.4-8.2); SODIUM,NA 133 mmol/L (140-148)
[2023-06-11 14:40] LABS: ANION GAP 15.6 mmol/L (5.0-14.0)
[2023-06-11] MEDS ORDERED: Sodium Chloride 0.9% 1,000 ML IV ONE ×2 (16:19→16:33)
[2023-06-11 17:14] VITALS: BP 114/50; PULSE 78
[2023-06-11 17:15] LABS: APPEARANCE,URINE CLEAR (CLEAR); BILIRUBIN,URINE NEGATIVE (NEGATIVE); COLOR,URINE YELLOW (YELLOW); GLUCOSE,URINE NEGATIVE (NEGATIVE); KETONES,URINE 15 mg/dL (NEGATIVE); LEUKOCYTE ESTERASE,URINE NEGATIVE (NEGATIVE); NITRITE,URINE NEGATIVE (NEGATIVE); OCCULT BLOOD,URINE NEGATIVE (NEGATIVE); PROTEIN,URINE TRACE mg/dL (NEGATIVE); UROBILINOGEN,URINE 0.2 EU/dL (0.2-1.0)
[2023-06-11 17:21] LABS: AMORPHOUS SEDIMENT,URINE NOT SEEN; BACTERIA,URINE FEW; EPITHELIAL CELLS,URINE RARE; MUCUS,URINE NOT SEEN; RBC,URINE 0-5 (0-5); WBC,URINE 0-5 (0-5)
== END 2023-06-11 18:05 | disposition home or self-care (01) ==
LOC: JP.ED 12:27
DX: R19.7 Diarrhea, unspecified (principal); E86.0 Dehydration; Z88.8 Allergy status to other drugs, medicaments and biological substances; Z79.899 Other long term (current) drug therapy; Z79.4 Long term (current) use of insulin
CPT/HCPCS: 0241U; 36415; 80053; 81001; 82803; 83605; 84145; 85025; 96361; 96374; 99284; 99284-25; J2405; J7030

== ENCOUNTER 2024-03-05 14:46 | Emergency (ER) | payer MEDICARE, OTHER ==
[2024-03-05 14:51] VITALS: BP 144/79; PULSE 71
== END 2024-03-05 16:01 | disposition home or self-care (01) ==
LOC: JP.ED 14:46
DX: E10.649 Type 1 diabetes mellitus with hypoglycemia without coma (principal); Z90.49 Acquired absence of other specified parts of digestive tract; Z87.891 Personal history of nicotine dependence; Z79.4 Long term (current) use of insulin; Z79.2 Long term (current) use of antibiotics; Z79.890 Hormone replacement therapy; Z79.51 Long term (current) use of inhaled steroids; Z79.899 Other long term (current) drug therapy; Z88.5 Allergy status to narcotic agent; Z88.8 Allergy status to other drugs, medicaments and biological substances
CPT/HCPCS: 99284; 99285

== ENCOUNTER 2024-06-22 12:51 | Emergency (ER) | payer MEDICARE, OTHER ==
[2024-06-22 13:04] VITALS: BP 156/88; PULSE 60
[2024-06-22 13:13] LABS: BASOPHILS ABSOLUTE AUTO 0.04 K/uL (0.00-0.10); BASOPHILS PERCENT AUTO 0.8 % (0.1-1.3); EOSINOPHILS ABSOLUTE AUTO 0.47 K/uL (0.00-0.40); HEMATOCRIT 37.5 % (34.3-46.0); HEMOGLOBIN 12.5 g/dL (11.2-15.5); IMMATURE GRAN PERCENT AUTO 0.4 % (0.0-0.7); LYMPHOCYTES ABSOLUTE AUTO 0.89 K/uL (0.8-3.3); MEAN CORPUSCULAR HEMOGLOBIN 30.3 pg (31.6-35.5); MEAN CORPUSCULAR HGB CONC 33.3 g/dL (31.6-35.5); MEAN CORPUSCULAR VOLUME 90.8 fL (81.4-99.0); MONOCYTES ABSOLUTE AUTO 0.41 K/uL (0.20-0.90); MONOCYTES PERCENT AUTO 7.8 % (3.3-12.6); PLATELET COUNT,PLT 194 K/uL (130-375); RED BLOOD CELL COUNT 4.13 M/uL (3.77-5.24); WHITE BLOOD CELL COUNT,WBC 5.2 K/uL (3.2-11.0)
[2024-06-22 13:14] LABS: IMMATURE GRAN ABSOLUTE AUTO 0.02 K/uL (0.00-0.23)
[2024-06-22 13:33] LABS: A/G RATIO 1.3 (1.2-2.2); ALANINE AMINOTRANSFERASE,ALT 24 U/L (12-78); ALBUMIN 4.2 g/dL (3.4-5.0); ALKALINE PHOSPHATASE 71 U/L (46-116); ASPARTATE AMNIOTRANSFERASE,AST 31 U/L (15-37); BILIRUBIN TOTAL 0.5 mg/dL (0.2-1.0); BLOOD UREA NITROGEN,BUN 23 mg/dL (7-18); CALCIUM 9.2 mg/dL (8.5-10.1); CARBON DIOXIDE,CO2 30 mmol/L (21-32); CHLORIDE,CL 98 mmol/L (100-108); CREATININE 1.1 mg/dL (0.6-1.0); ESTIMATED GFR 52 mL/min (>60); GLUCOSE RANDOM 154 mg/dL (74-106); POTASSIUM,K 4.7 mmol/L (3.6-5.2); PROTEIN TOTAL,TP 7.5 g/dL (6.4-8.2); SODIUM,NA 136 mmol/L (140-148)
[2024-06-22 13:35] LABS: ANION GAP 12.7 mmol/L (5.0-14.0)
[2024-06-22 13:36] LABS: APPEARANCE,URINE CLEAR (CLEAR); BILIRUBIN,URINE NEGATIVE (NEGATIVE); COLOR,URINE YELLOW (YELLOW); GLUCOSE,URINE NEGATIVE (NEGATIVE); KETONES,URINE NEGATIVE (NEGATIVE); LEUKOCYTE ESTERASE,URINE NEGATIVE (NEGATIVE); NITRITE,URINE NEGATIVE (NEGATIVE); OCCULT BLOOD,URINE NEGATIVE (NEGATIVE); PROTEIN,URINE NEGATIVE (NEGATIVE); UROBILINOGEN,URINE 0.2 EU/dL (0.2-1.0)
[2024-06-22 13:41] LABS: MAGNESIUM 1.7 mg/dL (1.8-2.4); TSH ULTRASENSITIVE 0.696 uIU/mL (0.358-3.740)
[2024-06-22 13:43] LABS: AMORPHOUS SEDIMENT,URINE NOT SEEN; BACTERIA,URINE RARE; EPITHELIAL CELLS,URINE RARE; MUCUS,URINE RARE; RBC,URINE NOT SEEN (0-5); WBC,URINE 0-5 (0-5)
== END 2024-06-22 14:37 | disposition home or self-care (01) ==
LOC: JP.ED 12:51
DX: E10.649 Type 1 diabetes mellitus with hypoglycemia without coma (principal); K21.9 Gastro-esophageal reflux disease without esophagitis; Z90.49 Acquired absence of other specified parts of digestive tract; Z88.5 Allergy status to narcotic agent; Z88.8 Allergy status to other drugs, medicaments and biological substances; Z79.4 Long term (current) use of insulin; Z79.890 Hormone replacement therapy; Z79.899 Other long term (current) drug therapy
CPT/HCPCS: 36415; 80053; 81001; 82947; 83605; 83735; 84443; 85025; 99285

== ENCOUNTER 2024-06-28 07:31 | Inpatient (IN) | payer MEDICARE, OTHER ==
[2024-06-28] MEDS: Ondansetron 4 MG/2 ML SDV IVPUSH ONE (08:04)
[2024-06-28] MEDS: Sodium Chloride 0.9% 1,000 ML IV SCH (08:05)
[2024-06-28] MEDS: Sodium Chloride 0.9% 10 ML Syringe FLUSH PRN (08:08)
[2024-06-28 08:31] LABS: BASOPHILS ABSOLUTE AUTO 0.04 K/uL (0.00-0.10); BASOPHILS PERCENT AUTO 0.7 % (0.1-1.3); EOSINOPHILS ABSOLUTE AUTO 0.28 K/uL (0.00-0.40); EOSINOPHILS PERCENT AUTO 4.8 % (0.0-5.4); HEMATOCRIT 37.4 % (34.3-46.0); HEMOGLOBIN 12.7 g/dL (11.2-15.5); IMMATURE GRAN PERCENT AUTO 0.3 % (0.0-0.7); LYMPHOCYTES ABSOLUTE AUTO 0.92 K/uL (0.8-3.3); LYMPHOCYTES PERCENT AUTO 15.9 % (11.4-47.7); MEAN CORPUSCULAR HEMOGLOBIN 30.7 pg (31.6-35.5); MEAN CORPUSCULAR VOLUME 90.3 fL (81.4-99.0); MONOCYTES ABSOLUTE AUTO 0.79 K/uL (0.20-0.90); MONOCYTES PERCENT AUTO 13.6 % (3.3-12.6); NEUTROPHILS ABSOLUTE AUTO 3.74 K/uL (1.0-7.6); NEUTROPHILS PERCENT AUTO 64.7 % (40.0-78.1); PLATELET COUNT,PLT 173 K/uL (130-375); RED BLOOD CELL COUNT 4.14 M/uL (3.77-5.24); WHITE BLOOD CELL COUNT,WBC 5.8 K/uL (3.2-11.0)
[2024-06-28 08:32] LABS: IMMATURE GRAN ABSOLUTE AUTO 0.02 K/uL (0.00-0.23)
[2024-06-28 09:05] LABS: A/G RATIO 1.2 (1.2-2.2); ALANINE AMINOTRANSFERASE,ALT 26 U/L (12-78); ALBUMIN 4.3 g/dL (3.4-5.0); ALKALINE PHOSPHATASE 74 U/L (46-116); ANION GAP 15.3 mmol/L (5.0-14.0); ASPARTATE AMNIOTRANSFERASE,AST 33 U/L (15-37); BILIRUBIN TOTAL 0.7 mg/dL (0.2-1.0); BLOOD UREA NITROGEN,BUN 21 mg/dL (7-18); CALCIUM 9.4 mg/dL (8.5-10.1); CARBON DIOXIDE,CO2 27 mmol/L (21-32); CHLORIDE,CL 99 mmol/L (100-108); CREATININE 1.3 mg/dL (0.6-1.0); EST CRCL DRUG DOSING (CG) 35.24 mL/min; ESTIMATED GFR 42 mL/min (>60); GLUCOSE RANDOM 123 mg/dL (74-106); POTASSIUM,K 3.3 mmol/L (3.6-5.2); PROTEIN TOTAL,TP 7.8 g/dL (6.4-8.2); SODIUM,NA 138 mmol/L (140-148)
[2024-06-28] MEDS: Potassium Chloride 10 MEQ in Premix Bag 1 BAG IV ONE (10:44)
[2024-06-28] MEDS: Lactated Ringers 1,000 ML IV ONE (10:44)
[2024-06-28] MEDS ORDERED: Loperamide 2 MG Cap PO PRN (13:20)
[2024-06-28] MEDS ORDERED: Ondansetron 4 MG/2 ML SDV IV PRN (13:20)
[2024-06-28] MEDS ORDERED: Ondansetron 4 MG Tab.DIS PO PRN (13:20)
[2024-06-28 13:41] LABS: C-REACTIVE PROTEIN 2.48 mg/dL (<0.50); MAGNESIUM 1.5 mg/dL (1.8-2.4)
[2024-06-28] MEDS: Acetaminophen 325 MG Tab PO PRN (13:44)
[2024-06-28] MEDS ORDERED: Potassium Chloride 10 MEQ in Premix Bag 1 BAG IV SCH (14:00)
[2024-06-28] MEDS: Magnesium Sulfate/Water Premix 2 GM in Premix Bag 1 BAG IV SCH (15:58)
[2024-06-28] MEDS: Insulin Lispro 100 Unit/ML 3 ML KwikPen SUBCUT SCH (16:42)
[2024-06-28] MEDS: Lactated Ringers 1,000 ML IV SCH (20:53)
[2024-06-28] MEDS ORDERED: FLUOROMETHOLONE EYEBOTH SCH (21:00)
[2024-06-29 05:33] LABS: HEMATOCRIT 33.9 % (34.3-46.0); HEMOGLOBIN 11.6 g/dL (11.2-15.5); MEAN CORPUSCULAR HEMOGLOBIN 30.8 pg (31.6-35.5); MEAN CORPUSCULAR HGB CONC 34.2 g/dL (31.6-35.5); MEAN CORPUSCULAR VOLUME 89.9 fL (81.4-99.0); RED BLOOD CELL COUNT 3.77 M/uL (3.77-5.24)
[2024-06-29 05:49] LABS: CALCIUM 8.5 mg/dL (8.5-10.1); EST CRCL DRUG DOSING (CG) 45.82 mL/min; POTASSIUM,K 3.8 mmol/L (3.6-5.2)
[2024-06-29 05:54] LABS: ANION GAP 10.8 mmol/L (5.0-14.0)
[2024-06-29] MEDS ORDERED: Levothyroxine 100 MCG Tab PO SCH (07:30)
[2024-06-29] MEDS: Levothyroxine 100 MCG, Levothyroxine 25 MCG PO SCH (07:33)
[2024-06-29] MEDS: Pantoprazole 40 MG Tab.CR PO SCH (07:33)
[2024-06-29] MEDS: Fludrocortisone 0.1 MG Tab PO SCH (08:12)
[2024-06-29] MEDS: oxyCODONE 5 MG Tab PO PRN (14:38)
[2024-06-29] MEDS: Hydrocortisone Sodium Succinate 100 MG/2 ML SDV IVPUSH ONE (15:58)
[2024-06-29] MEDS ORDERED: Glucagon,Human Recombinant 1 MG Vial IM PRN (21:51)
[2024-06-29] MEDS ORDERED: 50% Dextrose in Water 50 ML Syringe IVPUSH PRN (21:51)
[2024-06-29] MEDS: Insulin Glargine,Human Rec. Analog 100 Units/ML 3 ML Pen SUBCUT SCH (22:47)
[2024-06-30] MEDS: Insulin Lispro 100 Units/ML 3 ML Vial SUBCUT ONE (03:09)
[2024-06-30 06:15] LABS: ANION GAP 13.4 mmol/L (5.0-14.0); CALCIUM 9.4 mg/dL (8.5-10.1); CREATININE 1.1 mg/dL (0.6-1.0); EST CRCL DRUG DOSING (CG) 41.65 mL/min; POTASSIUM,K 4.4 mmol/L (3.6-5.2)
[2024-06-30 06:47] VITALS: BP 132/69; PULSE 78
[2024-06-30] MEDS: Insulin Lispro 100 Unit/ML 3 ML KwikPen SUBCUT ONE (08:37)
[2024-06-30] MEDS ORDERED: Insulin Glargine,Human Rec. Analog 100 Units/ML 3 ML Pen SUBCUT SCH (21:00)
== END 2024-06-30 10:45 | disposition home or self-care (01) | DRG 178 ==
LOC: JP.ED 07:31 → JP.MS 12:45
PROVIDERS: ADMIT Internal Medicine; ATTEND Hospitalist
DX: U07.1 COVID-19 (principal); E27.1 Primary adrenocortical insufficiency; E11.649 Type 2 diabetes mellitus with hypoglycemia without coma; K52.9 Noninfective gastroenteritis and colitis, unspecified; E11.22 Type 2 diabetes mellitus with diabetic chronic kidney disease; N18.31 Chronic kidney disease, stage 3a; K21.9 Gastro-esophageal reflux disease without esophagitis; M19.90 Unspecified osteoarthritis, unspecified site; F41.9 Anxiety disorder, unspecified; F32.A Depression, unspecified; E86.0 Dehydration; E87.6 Hypokalemia; H54.7 Unspecified visual loss; Z88.8 Allergy status to other drugs, medicaments and biological substances; Z79.899 Other long term (current) drug therapy; Z79.4 Long term (current) use of insulin; Z87.440 Personal history of urinary (tract) infections; Z98.84 Bariatric surgery status; Z90.89 Acquired absence of other organs; Z90.49 Acquired absence of other specified parts of digestive tract; Z98.890 Other specified postprocedural states
CPT/HCPCS: 36415; 80048; 80053; 82947; 83605; 83735; 85025; 85027; 86140; 87040; 87428-QW; 96361; 96365; 96375; 99222; 99232; 99238; 99285; 99285-25; A9270-GY; J1720; J1815; J1815-GY; J2405; J3475; J3480; J7030; J7120

== ENCOUNTER 2024-09-13 14:26 | Inpatient (IN) | payer OTHER, MEDICARE ==
[2024-09-13 14:34] LABS: BASOPHILS ABSOLUTE AUTO 0.04 K/uL (0.00-0.10); BASOPHILS PERCENT AUTO 0.5 % (0.1-1.3); EOSINOPHILS ABSOLUTE AUTO 0.39 K/uL (0.00-0.40); HEMATOCRIT 36.5 % (34.3-46.0); HEMOGLOBIN 12.2 g/dL (11.2-15.5); IMMATURE GRAN ABSOLUTE AUTO 0.08 K/uL (0.00-0.23); LYMPHOCYTES ABSOLUTE AUTO 1.75 K/uL (0.8-3.3); LYMPHOCYTES PERCENT AUTO 22.3 % (11.4-47.7); MEAN CORPUSCULAR HEMOGLOBIN 30.1 pg (31.6-35.5); MEAN CORPUSCULAR HGB CONC 33.4 g/dL (31.6-35.5); MEAN CORPUSCULAR VOLUME 90.1 fL (81.4-99.0); MONOCYTES ABSOLUTE AUTO 0.65 K/uL (0.20-0.90); MONOCYTES PERCENT AUTO 8.3 % (3.3-12.6); NEUTROPHILS ABSOLUTE AUTO 4.93 K/uL (1.0-7.6); NEUTROPHILS PERCENT AUTO 62.9 % (40.0-78.1); PLATELET COUNT,PLT 205 K/uL (130-375); RED BLOOD CELL COUNT 4.05 M/uL (3.77-5.24); WHITE BLOOD CELL COUNT,WBC 7.8 K/uL (3.2-11.0)
[2024-09-13 14:53] LABS: A/G RATIO 1.2 (1.2-2.2); ALANINE AMINOTRANSFERASE,ALT 41 U/L (12-78); ALBUMIN 3.7 g/dL (3.4-5.0); ALKALINE PHOSPHATASE 68 U/L (46-116); ASPARTATE AMNIOTRANSFERASE,AST 64 U/L (15-37); BILIRUBIN TOTAL 0.4 mg/dL (0.2-1.0); BLOOD UREA NITROGEN,BUN 22 mg/dL (7-18); CALCIUM 9.4 mg/dL (8.5-10.1); CARBON DIOXIDE,CO2 27 mmol/L (21-32); CHLORIDE,CL 101 mmol/L (100-108); ESTIMATED GFR 58 mL/min (>60); GLUCOSE RANDOM 78 mg/dL (74-106); POTASSIUM,K 3.8 mmol/L (3.6-5.2); PROTEIN TOTAL,TP 6.9 g/dL (6.4-8.2); SODIUM,NA 138 mmol/L (140-148)
[2024-09-13 14:54] LABS: ANION GAP 13.8 mmol/L (5.0-14.0)
[2024-09-13] MEDS: Iopamidol 612 MG/ML 100 ML Bottle IV PRN (14:58)
[2024-09-13] MEDS: Sodium Chloride 0.9% 80 ML IV SCH (14:58)
[2024-09-13] MEDS: Dextrose 10% in Water 100 ML IV SCH ×2 (15:08→15:47)
[2024-09-13] MEDS: HYDROmorphone 0.5 MG/0.5 ML Syringe IVPUSH ONE (15:18)
[2024-09-13] MEDS ORDERED: Naloxone 0.4 MG/ML SDV IVPUSH PRN (18:33)
[2024-09-13] MEDS ORDERED: Ondansetron 4 MG/2 ML SDV IV PRN (18:33)
[2024-09-13] MEDS: HYDROmorphone 1 MG/ML Syringe IVPUSH PRN (19:32)
[2024-09-13] MEDS: Fluorometholone 0.1% Ophth Susp 5 ML Bottle EYEBOTH SCH (20:31)
[2024-09-13] MEDS: Magnesium Oxide 400 MG Tab PO SCH (20:31)
[2024-09-13] MEDS: Celecoxib 100 MG Cap PO SCH (20:31)
[2024-09-13] MEDS: Calcium Carbonate 500 MG Tab.Chew PO SCH (20:31)
[2024-09-13] MEDS: oxyCODONE 5 MG Tab PO PRN (20:32)
[2024-09-13] MEDS: Phenol/Sodium Phenolate Spray 180 ML Bottle MUCMEM PRN (20:33)
[2024-09-14] MEDS: Acetaminophen 325 MG Tab PO PRN (04:01)
[2024-09-14] MEDS ORDERED: Levothyroxine 25 MCG Tab PO SCH (07:30)
[2024-09-14] MEDS ORDERED: Non-Formulary Medication 1 Each (Levothyroxine [Synthroid] 100 MCG Tablet) PO SCH (07:30)
[2024-09-14] MEDS ORDERED: Levothyroxine 100 MCG Tab PO SCH (07:30)
[2024-09-14] MEDS ORDERED: Pantoprazole 40 MG Tab.CR PO SCH (07:30)
[2024-09-14] MEDS: Insulin Lispro 100 Unit/ML 3 ML KwikPen SUBCUT SCH ×2 (08:15→11:55)
[2024-09-14] MEDS ORDERED: Fludrocortisone 0.1 MG Tab PO SCH (09:00)
[2024-09-14] MEDS ORDERED: Sodium Chloride 0.9% 10 ML Syringe IV PRN (09:16)
[2024-09-14] MEDS: Celecoxib 100 MG Cap PO SCH (10:20)
[2024-09-14] MEDS: LEVOTHYROXINE 125MCG PO SCH (10:20)
[2024-09-14] MEDS: Pantoprazole 40 MG Tab.CR PO SCH (10:20)
[2024-09-14] MEDS: Fludrocortisone 0.1 MG Tab PO SCH (10:21)
[2024-09-14] MEDS: Docusate Sodium 100 MG Cap PO SCH (10:24)
[2024-09-14] MEDS: Ondansetron 4 MG Tab.DIS PO PRN (11:59)
[2024-09-14] MEDS: Polyethylene Glycol 3350 Powder 17 GM Packet PO PRN (20:23)
[2024-09-14] MEDS ORDERED: Non-Formulary Medication 1 Each (Insulin Degludec [Tresiba Flextouch U-100] 100 UNIT/ML Pe SUBCUT SCH (21:00)
[2024-09-14] MEDS: Acetaminophen 500 MG Tab PO SCH (21:07)
[2024-09-14] MEDS: Insulin Glargine,Human Rec. Analog 100 Units/ML 3 ML Pen SUBCUT SCH (21:09)
[2024-09-15] MEDS: Levothyroxine 100 MCG, Levothyroxine 25 MCG PO SCH (07:35)
[2024-09-15] MEDS: Sennosides/Docusate Sodium 50-8.6 MG Tab PO PRN (08:10)
[2024-09-15] MEDS: Magnesium Hydroxide 400 MG/5 ML Susp 30 ML Cup PO PRN (08:10)
[2024-09-15 11:35] VITALS: BP 144/78; PULSE 73
== END 2024-09-15 13:40 | disposition home or self-care (01) | DRG 183 ==
LOC: JP.ED 14:26 → JP.MS 17:41 → OBSVTOIN 09-14 11:49
PROVIDERS: ADMIT Internal Medicine; ATTEND Internal Medicine
DX: S22.42XA Multiple fractures of ribs, left side, initial encounter for closed fracture (principal); J96.01 Acute respiratory failure with hypoxia; E27.1 Primary adrenocortical insufficiency; H54.7 Unspecified visual loss; K52.9 Noninfective gastroenteritis and colitis, unspecified; K21.9 Gastro-esophageal reflux disease without esophagitis; E10.649 Type 1 diabetes mellitus with hypoglycemia without coma; M19.90 Unspecified osteoarthritis, unspecified site; F41.9 Anxiety disorder, unspecified; F32.A Depression, unspecified; S80.212A Abrasion, left knee, initial encounter; Z88.8 Allergy status to other drugs, medicaments and biological substances; Z79.4 Long term (current) use of insulin; Z79.899 Other long term (current) drug therapy; Z98.49 Cataract extraction status, unspecified eye; Z90.89 Acquired absence of other organs; Z90.49 Acquired absence of other specified parts of digestive tract; Z98.890 Other specified postprocedural states; V87.7XXA Person injured in collision between other specified motor vehicles (traffic), initial encounter
CPT/HCPCS: 36415; 70450; 70450-26; 71260; 71260-26; 72125; 72125-26; 74177; 74177-26; 80053; 82947; 85025; 96374; 96376; 99223; 99232; 99238; 99285-25; A9270-GY; G0378; J1171; J1815; J1815-GY; J7799; Q0162; Q9967

== ENCOUNTER 2024-12-09 19:47 | Emergency (ER) | payer MEDICARE, OTHER ==
[~2024-12-09 19:47] MED LIST changes: +Haloperidol Lactate 5 MG/ML SDV ONE; -Midazolam 1 MG/ML 2 ML SDV ONE; -Propofol 200 MG/20 ML SDV ONE; +diphenhydrAMINE 50 MG/ML SDV ONE; -fentaNYL 100 MCG/2 ML SDV ONE
[2024-12-09] MEDS: Haloperidol Lactate 5 MG/ML SDV IVPUSH ONE (19:47)
[2024-12-09] MEDS: diphenhydrAMINE 50 MG/ML SDV IVPUSH ONE (19:59)
[2024-12-09 20:13] LABS: BASOPHILS ABSOLUTE AUTO 0.06 K/uL (0.00-0.10); BASOPHILS PERCENT AUTO 0.9 % (0.1-1.3); EOSINOPHILS ABSOLUTE AUTO 0.17 K/uL (0.00-0.40); EOSINOPHILS PERCENT AUTO 2.5 % (0.0-5.4); HEMATOCRIT 36.8 % (34.3-46.0); HEMOGLOBIN 12.1 g/dL (11.2-15.5); IMMATURE GRAN PERCENT AUTO 0.1 % (0.0-0.7); LYMPHOCYTES ABSOLUTE AUTO 1.63 K/uL (0.8-3.3); LYMPHOCYTES PERCENT AUTO 23.6 % (11.4-47.7); MEAN CORPUSCULAR HEMOGLOBIN 29.8 pg (31.6-35.5); MEAN CORPUSCULAR HGB CONC 32.9 g/dL (31.6-35.5); MEAN CORPUSCULAR VOLUME 90.6 fL (81.4-99.0); MONOCYTES ABSOLUTE AUTO 0.95 K/uL (0.20-0.90); MONOCYTES PERCENT AUTO 13.8 % (3.3-12.6); NEUTROPHILS ABSOLUTE AUTO 4.08 K/uL (1.0-7.6); NEUTROPHILS PERCENT AUTO 59.1 % (40.0-78.1); PLATELET COUNT,PLT 162 K/uL (130-375); RED BLOOD CELL COUNT 4.06 M/uL (3.77-5.24); WHITE BLOOD CELL COUNT,WBC 6.9 K/uL (3.2-11.0)
[2024-12-09 20:16] LABS: IMMATURE GRAN ABSOLUTE AUTO 0.01 K/uL (0.00-0.23)
[2024-12-09 20:33] LABS: APPEARANCE,URINE CLEAR (CLEAR); BILIRUBIN,URINE NEGATIVE (NEGATIVE); COLOR,URINE YELLOW (YELLOW); GLUCOSE,URINE NEGATIVE (NEGATIVE); KETONES,URINE NEGATIVE (NEGATIVE); LEUKOCYTE ESTERASE,URINE TRACE (NEGATIVE); NITRITE,URINE NEGATIVE (NEGATIVE); OCCULT BLOOD,URINE TRACE-INTACT (NEGATIVE); PROTEIN,URINE 30 mg/dL (NEGATIVE); UROBILINOGEN,URINE 0.2 EU/dL (0.2-1.0)
[2024-12-09 20:39] LABS: A/G RATIO 1.1 (1.2-2.2); ALANINE AMINOTRANSFERASE,ALT 30 U/L (12-78); ALBUMIN 3.9 g/dL (3.4-5.0); ALKALINE PHOSPHATASE 101 U/L (46-116); ASPARTATE AMNIOTRANSFERASE,AST 30 U/L (15-37); BILIRUBIN TOTAL 0.4 mg/dL (0.2-1.0); BLOOD UREA NITROGEN,BUN 23 mg/dL (7-18); CALCIUM 9.9 mg/dL (8.5-10.1); CARBON DIOXIDE,CO2 25 mmol/L (21-32); CHLORIDE,CL 101 mmol/L (100-108); CREATININE 1.1 mg/dL (0.6-1.0); ESTIMATED GFR 52 mL/min (>60); PROTEIN TOTAL,TP 7.3 g/dL (6.4-8.2); SODIUM,NA 137 mmol/L (140-148)
[2024-12-09 20:42] LABS: AMORPHOUS SEDIMENT,URINE NOT SEEN; BACTERIA,URINE FEW; EPITHELIAL CELLS,URINE FEW; MUCUS,URINE FEW; WBC,URINE 0-5 (0-5)
[2024-12-09] MEDS: 50% Dextrose in Water 50 ML Syringe IVPUSH ONE ×2 (20:43→21:50)
[2024-12-09 20:45] LABS: ANION GAP 13.8 mmol/L (5.0-14.0); GLUCOSE RANDOM 42 mg/dL (74-106); POTASSIUM,K 2.8 mmol/L (3.6-5.2)
[2024-12-09 20:47] LABS: AMPHETAMINES SCREEN, URINE NEGATIVE (NEGATIVE); BARBITURATE SCREEN,URINE NEGATIVE (NEGATIVE); BENZODIAZEPINES SCREEN,URINE NEGATIVE (NEGATIVE); METHADONE SCREEN, URINE NEGATIVE (NEGATIVE); METHAMPHETAMINES SCREEN, URINE NEGATIVE (NEGATIVE); OXYCODONE SCREEN,URINE NEGATIVE (NEGATIVE); PROPOXYPHENE SCREEN,URINE NEGATIVE (NEGATIVE); THC SCREEN,URINE 50 NG/ML NEGATIVE (NEGATIVE)
[2024-12-09] MEDS: Potassium Chloride 20 MEQ in Premix Bag 1 BAG IV ONE (21:15)
[2024-12-09] MEDS: Dextrose 10% in Water 500 ML IV SCH (22:00)
[2024-12-09] MEDS: Hydrocortisone Sodium Succinate 100 MG/2 ML SDV IVPUSH ONE (23:21)
[2024-12-10] MEDS: Heparin Sodium/D5W 25,000 UNITS/500 ML BAG IV SCH (01:14)
[2024-12-10] MEDS: Aspirin 81 MG Tab.Chew PO ONE (01:20)
[2024-12-10 02:01] VITALS: BP 122/79; PULSE 75
== END 2024-12-10 01:45 ==
LOC: JP.ED 19:47
DX: E10.649 Type 1 diabetes mellitus with hypoglycemia without coma (principal); I21.4 Non-ST elevation (NSTEMI) myocardial infarction; E87.6 Hypokalemia; R41.0 Disorientation, unspecified; K21.9 Gastro-esophageal reflux disease without esophagitis; Z88.5 Allergy status to narcotic agent; Z88.8 Allergy status to other drugs, medicaments and biological substances; Z79.899 Other long term (current) drug therapy; Z79.4 Long term (current) use of insulin; Z79.890 Hormone replacement therapy; Z90.49 Acquired absence of other specified parts of digestive tract; Z87.891 Personal history of nicotine dependence
CPT/HCPCS: 36415; 70450; 80053; 80305; 81001; 82947; 83605; 84484; 85025; 93005; 93010; 96361; 96365; 96366; 96367; 96374; 96375; 96376; 99285; A9270; J1200; J1630; J1644; J1720; J3480

== ENCOUNTER 2024-12-13 08:35 | Emergency (ER) | payer MEDICARE, OTHER ==
[2024-12-13 08:52] LABS: BASOPHILS ABSOLUTE AUTO 0.05 K/uL (0.00-0.10); BASOPHILS PERCENT AUTO 0.9 % (0.1-1.3); EOSINOPHILS ABSOLUTE AUTO 0.36 K/uL (0.00-0.40); EOSINOPHILS PERCENT AUTO 6.1 % (0.0-5.4); HEMATOCRIT 34.3 % (34.3-46.0); HEMOGLOBIN 11.4 g/dL (11.2-15.5); IMMATURE GRAN PERCENT AUTO 0.2 % (0.0-0.7); LYMPHOCYTES ABSOLUTE AUTO 1.92 K/uL (0.8-3.3); LYMPHOCYTES PERCENT AUTO 32.7 % (11.4-47.7); MEAN CORPUSCULAR HEMOGLOBIN 29.8 pg (31.6-35.5); MEAN CORPUSCULAR HGB CONC 33.2 g/dL (31.6-35.5); MEAN CORPUSCULAR VOLUME 89.6 fL (81.4-99.0); MONOCYTES ABSOLUTE AUTO 0.53 K/uL (0.20-0.90); NEUTROPHILS ABSOLUTE AUTO 3.01 K/uL (1.0-7.6); NEUTROPHILS PERCENT AUTO 51.1 % (40.0-78.1); PLATELET COUNT,PLT 216 K/uL (130-375); RED BLOOD CELL COUNT 3.83 M/uL (3.77-5.24); WHITE BLOOD CELL COUNT,WBC 5.9 K/uL (3.2-11.0)
[2024-12-13 08:56] LABS: IMMATURE GRAN ABSOLUTE AUTO 0.01 K/uL (0.00-0.23)
[2024-12-13 09:12] VITALS: BP 102/59; PULSE 78
[2024-12-13] MEDS: Sodium Chloride 0.9% 1,000 ML IV SCH (09:13)
[2024-12-13 09:23] LABS: A/G RATIO 1.1 (1.2-2.2); ALANINE AMINOTRANSFERASE,ALT 35 U/L (12-78); ALBUMIN 3.4 g/dL (3.4-5.0); ALKALINE PHOSPHATASE 86 U/L (46-116); ASPARTATE AMNIOTRANSFERASE,AST 43 U/L (15-37); BILIRUBIN TOTAL 0.6 mg/dL (0.2-1.0); BLOOD UREA NITROGEN,BUN 18 mg/dL (7-18); CARBON DIOXIDE,CO2 30 mmol/L (21-32); CHLORIDE,CL 97 mmol/L (100-108); CREATININE 1.3 mg/dL (0.6-1.0); EST CRCL DRUG DOSING (CG) 36.56 mL/min; ESTIMATED GFR 42 mL/min (>60); GLUCOSE RANDOM 317 mg/dL (74-106); POTASSIUM,K 3.1 mmol/L (3.6-5.2); PROTEIN TOTAL,TP 6.6 g/dL (6.4-8.2); SODIUM,NA 134 mmol/L (140-148)
[2024-12-13 09:26] LABS: ANION GAP 10.1 mmol/L (5.0-14.0)
[2024-12-13] MEDS ORDERED: Glucagon,Human Recombinant 1 MG Vial IM PRN (09:59)
[2024-12-13] MEDS ORDERED: 50% Dextrose in Water 50 ML Syringe IVPUSH PRN (09:59)
[2024-12-13] MEDS: Potassium Chloride 20 MEQ Tab.ER PO ONE (11:08)
[2024-12-13] MEDS: Insulin Regular, Human 100 Units/ML 10 ML Vial SUBCUT ONE (11:09)
[2024-12-13 12:29] LABS: APPEARANCE,URINE TURBID (CLEAR); BILIRUBIN,URINE NEGATIVE (NEGATIVE); COLOR,URINE YELLOW (YELLOW); GLUCOSE,URINE >=1000 mg/dL (NEGATIVE); KETONES,URINE TRACE mg/dL (NEGATIVE); LEUKOCYTE ESTERASE,URINE MODERATE (NEGATIVE); NITRITE,URINE POSITIVE (NEGATIVE); OCCULT BLOOD,URINE MODERATE (NEGATIVE); PROTEIN,URINE NEGATIVE (NEGATIVE); UROBILINOGEN,URINE 0.2 EU/dL (0.2-1.0)
[2024-12-13 12:34] LABS: AMORPHOUS SEDIMENT,URINE NOT SEEN; BACTERIA,URINE MANY; EPITHELIAL CELLS,URINE FEW; MUCUS,URINE NOT SEEN; RBC,URINE 0-5 (0-5); WBC,URINE >100 (0-5)
== END 2024-12-13 13:59 | disposition home or self-care (01) ==
LOC: JP.ED 08:35
DX: I95.9 Hypotension, unspecified (principal); E27.1 Primary adrenocortical insufficiency; K21.9 Gastro-esophageal reflux disease without esophagitis; E10.9 Type 1 diabetes mellitus without complications; Z90.49 Acquired absence of other specified parts of digestive tract; Z88.5 Allergy status to narcotic agent; Z88.8 Allergy status to other drugs, medicaments and biological substances; Z79.4 Long term (current) use of insulin; Z79.890 Hormone replacement therapy; Z79.899 Other long term (current) drug therapy
CPT/HCPCS: 36415; 80053; 81001; 82947; 84443; 84484; 85025; 93005; 93010; 96360; 96361; 99284; A9270; J7030

== ENCOUNTER 2024-12-19 11:43 | Emergency (ER) | payer MEDICARE, OTHER ==
[2024-12-19 11:56] VITALS: BP 143/86; PULSE 96
== END 2024-12-19 12:17 | disposition home or self-care (01) ==
LOC: JP.ED 11:43
DX: N30.00 Acute cystitis without hematuria (principal); E10.9 Type 1 diabetes mellitus without complications; K21.9 Gastro-esophageal reflux disease without esophagitis; Z88.8 Allergy status to other drugs, medicaments and biological substances; Z79.51 Long term (current) use of inhaled steroids; Z79.899 Other long term (current) drug therapy; Z79.4 Long term (current) use of insulin; Z79.890 Hormone replacement therapy; Z90.49 Acquired absence of other specified parts of digestive tract
CPT/HCPCS: 99283